=== PATIENT | female | born 1945 | race Caucasian/White ===

== ENCOUNTER 2020-10-17 12:36 | Outpatient (CLI) | payer MEDICARE, SELFPAY ==
--- NOTE | ~2020-10-17 | US_ITS ---
EXAMINATION: US soft tissue LE LT DATE: 10/17/2020 12:59 INDICATION: Painful mass at the lateral proximal left thigh. TECHNIQUE: Multiple grayscale and Doppler ultrasound images of the lateral left thigh at the region o f concern were obtained. COMPARISON: None FINDINGS: There is a 2.5 x 1.6 x 0.7 cm ovoid region with ill-defined margins at the site of the concern which is slightly hyperechoic to the surrounding subcutaneous fat but with similar echotexture. No abnormal increased internal vascular flow on color Doppler. IMPRESSION: 1. 2.5 x 1.6 x 0.7 cm masslike region with ill-defined margins at the site of concern which appears s imilar to but slightly hyperechoic to the surrounding subcutaneous fat is likely representing a regio n of inflammation of otherwise normal fat. Could not absolutely exclude solid neoplasm for which lipo ma would be most the most likely etiology. CT or MRI could be obtained for more definitive evaluation as clinically indicated. Reviewed, dictated and finalized at location B. EL BRIDGE ASSEMBLER IMPRESSION: 1. 2.5 x 1.6 x 0.7 cm masslike region with ill-defined margins at the site of c oncern which appears similar to but slightly hyperechoic to the surrounding sub cutaneous fat is likely representing a region of inflammation of otherwise norm al fat. Could not absolutely exclude solid neoplasm for which lipoma would be m ost the most likely etiology. CT or MRI could be obtained for more definitive e valuation as clinically indicated.
== END 2020-10-17 12:37 | disposition home or self-care (01) ==
LOC: ANHIMG 12:39
PROVIDERS: PCP Internal Medicine; Visit Provider Internal Medicine
DX: G89.29 Other chronic pain (principal); M25.511 Pain in right shoulder; R22.40 Localized swelling, mass and lump, unspecified lower limb
CPT/HCPCS: 76882

== ENCOUNTER 2020-10-24 12:52 | Outpatient (CLI) | payer MEDICARE, SELFPAY ==
--- NOTE | ~2020-10-24 | MR_ITS ---
EXAMINATION: MR femur LT wo con DATE: 10/24/2020 13:56 INDICATION: Left thigh lump. TECHNIQUE: Magnetic resonance imaging (MRI) of the left femur was performed without intravenous contr ast. Sequences included axial, coronal, and sagittal STIR FSE and T1-weighted FSE. COMPARISON: Ultrasound 10/17/2020 FINDINGS: Bone alignment is normal. No fracture. Bone marrow signal intensity is normal. The musculat ure is unremarkable. There is no abnormal mass. There is a skin marker at the anterolateral aspect of the left thigh. IMPRESSION: 1. No abnormal mass in the patient's area of concern. Reviewed, dictated and finalized at location A. TIVE SERVICES DESIGNER
== END 2020-10-24 12:53 | disposition home or self-care (01) ==
PROVIDERS: PCP Internal Medicine; Visit Provider Internal Medicine
DX: R22.40 Localized swelling, mass and lump, unspecified lower limb (principal)
CPT/HCPCS: 73721

== ENCOUNTER 2021-07-19 14:49 | Outpatient (CLI) | payer MEDICARE, SELFPAY ==
--- NOTE | ~2021-07-19 | US_ITS ---
EXAMINATION: US thyroid DATE: 07/19/2021 15:32 INDICATION: Goiter. Nontoxic single thyroid nodule. TECHNIQUE: Multiple ultrasound images of the thyroid were obtained. COMPARISON: 05/27/2007 FINDINGS: The right thyroid lobe measures 6.7 x 3.6 x 4.1 cm. The left thyroid lobe measures 3.5 x 1.8 x 1.4 c m. Multiple bilateral thyroid nodules. The largest and most concerning is a 2.6 cm taller than wide solid hypoechoic nodule with smooth margins and without echogenic foci (TI-RADS 5, highly suspicious , FNA if >=1.0 cm, annual followup is >0.5 cm). There are a few additional solid hypoechoic wider hermilo n tall right thyroid nodules with smooth or ill-defined margins, a couple with associated coarse shad owing calcification (TI-RADS 4, moderately suspicious , FNA if >=1.5 cm, annual followup is >=1 cm). The largest measures 2.0 cm at the medial lower pole. The next largest measuring 1.5 cm. 1.2 cm round solid left thyroid nodule with smooth margins and with central small coarse calcification also TI-RA DS 4. IMPRESSION: 1. Multinodular goiter. Recommend ultrasound-guided biopsy of the 2.6 cm TI RADS 5 right thyroid nodu le. Reviewed, dictated and finalized at location A. N'S STUDIES LECTURER IMPRESSION: 1. Multinodular goiter. Recommend ultrasound-guided biopsy of the 2.6 cm TI RAD S 5 right thyroid nodule.
== END 2021-07-19 14:50 | disposition home or self-care (01) ==
LOC: ANHIMG 14:52
PROVIDERS: PCP Internal Medicine; Visit Provider Internal Medicine
DX: E04.2 Nontoxic multinodular goiter (principal)
CPT/HCPCS: 76536

== ENCOUNTER 2021-07-30 09:47 | Outpatient (CLI) | payer MEDICARE, SELFPAY ==
--- NOTE | ~2021-07-30 | US_ITS ---
EXAMINATION: US FNA w image guidance DATE: 07/30/2021 10:41 INDICATION: Nontoxic single thyroid nodule. TECHNIQUE: The procedure and its benefits and risks were discussed with the patient. Risks specifically discusse d included bleeding. The patient verbalized understanding of the risks and agreed to proceed. The nec k was prepped and draped in the usual sterile manner. 1% lidocaine was used for local anesthesia. 5 passes were made with a 25G needle into the lesion under ultrasound guidance. There were no immedia te complications. FINDINGS: Grayscale ultrasound images demonstrate needles advanced into a 2.6 cm right thyroid nodule for biops y. IMPRESSION: 1. Ultrasound-guided fine needle aspiration of a right thyroid nodule. Reviewed, dictated and finalized at location A. UCT ENGINEERING MANAGER
== END 2021-07-30 09:48 | disposition home or self-care (01) ==
LOC: ANHIMG 09:51
PROVIDERS: PCP Internal Medicine; Visit Provider Internal Medicine
DX: E04.1 Nontoxic single thyroid nodule (principal)
CPT/HCPCS: 10005; 88173; 88305

== ENCOUNTER 2021-08-16 09:42 | Outpatient (CLI) | payer MEDICARE, SELFPAY ==
--- NOTE | ~2021-08-16 | US_ITS ---
EXAMINATION: US FNA w image guidance DATE: 08/16/2021 10:54 INDICATION: Nontoxic thyroid nodule TECHNIQUE: A time-out was performed to verify the patient's name, date of , and procedure to be performed . The procedure and its benefits and risks were discussed with the patient. Risks specifically discus sed included bleeding and infection. The patient understood the risks and agreed to proceed. The neck was prepped and draped in the usual sterile manner. 3 mL 1% lidocaine was used for local anesthesia . 6 passes were made with a 25G needle into the lesion. Appropriate needle location was documented with continuous sonographic guidance. The specimens were passed to the pharmacy technologist in the room. A sterile bandage was applied. There were no immediate complications. FINDINGS: Grayscale ultrasound images demonstrate biopsy needles advanced into a 2.3 cm taller than wide solid TI RADS 5 nodule in the right thyroid. IMPRESSION: 1. Successful ultrasound-guided fine needle aspiration of the 2.3 cm TI RADS 5 right thyroid nodule of concern. Reviewed, dictated and finalized at location A. PERSON
== END 2021-08-16 09:43 | disposition home or self-care (01) ==
LOC: ANHIMG 09:44
PROVIDERS: PCP Internal Medicine; Visit Provider Internal Medicine
DX: E04.1 Nontoxic single thyroid nodule (principal)
CPT/HCPCS: 10005; 88173; 88305

== ENCOUNTER 2021-09-04 17:45 | Emergency (ER) | payer MEDICARE, SELFPAY ==
[2021-09-04 17:54] VITALS: BP 142/75; PULSE 77; RESP 16; TEMP 35.9; O2SAT 98
--- NOTE | 2021-09-04 17:59 | ED.EAR ---
HPI - Ear Problem General Chief complaint: Ear Stated complaint: Ear congestion Time Seen by Provider: 09/04/21 17:59 Source: patient Mode of arrival: ambulatory Limitations: no limitations History of Present Illness HPI Narrative: 76-year-old female presenting for complaint of bilateral ear pressure for about 3 weeks. She endorses worse than right. She denies significant hearing loss, sinus pressure congestion, sore throat, fever or chills. Denies recent URI. States Cpap worsens the pain. Denies similar symptoms in the past. MD Complaint: ear pain Related Data Home Medications Medication Instructions Recorded Confirmed metoprolol succinate 25 mg 25 mg PO Q12H 10/01/19 02/21/21 tablet,extended release 24 hr acetaminophen 650 mg 650 mg PO Q12H 02/21/21 02/21/21 tablet,extended release ibuprofen 200 mg tablet 200 mg PO Q6H PRN 02/21/21 02/21/21 Allergies Allergy/AdvReac Type Severity Reaction Status Date / Time No Known Allergies Allergy Unknown Verified 09/04/21 17:52 Review of Systems Review of Systems: CONSTITUTIONAL: Denies malaise, chills, sweats, or fever. EYES: Denies visual changes, redness, or discharge. ENT: Denies rhinorrhea, congestion, sinus pain, and sore throat. Reports ear pain CARDIOVASCULAR: Denies chest pain, palpitations, or edema. RESPIRATORY: Denies cough. Denies dyspnea. GASTROINTESTINAL: Denies abdominal pain, nausea, vomiting, diarrhea SKIN: Denies rash or itching. MUSCULOSKELETAL: Denies myalgia. NEUROLOGIC: Denies headache. All systems reviewed & are unremarkable except as noted in HPI and below PMFSH Family History Family History Mother Family history of tuberculosis Sibling Patient's brother is in good health Father Family history of congestive heart failure, Onset Age: 91 Patient's father is Other Cerebrovascular accident Diabetes mellitus Family history of malignant neoplasm of male breast Social History Social History Smoking status: Never smoker Alcohol intake: current Comments At time of signature, agree with nursing past medical, surgical, social and family history. There is no relevant family history pertinent to the presenting complaint Exam Narrative: GENERAL: Well-appearing, well-nourished, and in no acute distress. HEAD: Normocephalic EYES: PERRLA, conjunctivae clear ENT: Nares clear. Mucous membranes moist. TM pearly valenzuela with dull light reflex to right ear; Left ear with cerumen impaction, no tragal tenderness. Oropharynx not erythematous without lesions. NECK: Supple. No lymphadenopathy CHEST: Clear to auscultation, breath sounds equal. No wheezing, rhonchi, rales, or stridor. No respiratory distress, speaks in full sentences. HEART: Regular rate and rhythm. No murmur heard. SKIN: Warm, dry, no rash. NEURO: Alert and oriented x3. PSYCH: Normal mood and affect Course Course Emergency Course: Cerumen impaction left ear, some cerumen remains in place after irrigation. Due to risk for TM perforation, Pt will try OTC med at home and f/u with ENT. Patient is aware of diagnosis, understands and agrees to treatment plan. Anticipatory guidance given. Patient agrees to follow-up as directed and is aware of reasons to seek care at the emergency department. Portions of this record may have been created with voice recognition software Level of Care: Express Care Visit Vital Signs Vital signs: Vital Signs Temperature 96.6 F L 09/04/21 17:54 Pulse Rate 77 09/04/21 17:54 Respiratory Rate 16 09/04/21 17:54 Blood Pressure 142/75 H 09/04/21 17:54 Pulse Oximetry 98 09/04/21 17:54 Temperature 96.6 F L 09/04/21 17:54 Pulse Rate 77 09/04/21 17:54 Respiratory Rate 16 09/04/21 17:54 Blood Pressure 142/75 H 09/04/21 17:54 Pulse Oximetry 98 09/04/21 17:54 Reviewed Procedures Ear Wax Remova
== END 2021-09-04 18:34 | disposition home or self-care (01) ==
PROVIDERS: Emergency Provider Nurse Practitioner Family; PCP Internal Medicine
DX: H61.22 Impacted cerumen, left ear (principal); E03.9 Hypothyroidism, unspecified
CPT/HCPCS: 69210; 99213; G0463

== ENCOUNTER 2022-01-15 10:11 | Outpatient (CLI) | payer MEDICARE, SELFPAY ==
--- NOTE | ~2022-01-15 | MM_ITS ---
EXAMINATION: MM screening carlos alberto BI w hoa HISTORY: Screening mammogram TECHNIQUE: Craniocaudal and mediolateral oblique 3-D tomosynthesis images were obtained and synthetic 2-D images were generated. CAD analysis was submitted and interpreted. COMPARISON: 05/13/2019, 03/30/2015, 09/12/2013 bilateral screening mammogram examinations BREAST PARENCHYMAL COMPOSITION: There are scattered areas of fibroglandular density. FINDINGS: Stable low-density circumscribed 7 mm mass at mid depth in the lower inner right breast. Occasional benign calcifications. There is no evidence of suspicious mass, calcification, or architec tural distortion to suggest malignancy in either breast. There has been no suspicious interval change . IMPRESSION: 1. No mammographic evidence of malignancy. 2. Recommend routine screening mammography in one year. BI-RADS Category 2: Benign finding(s). Reviewed, dictated and finalized at location A.
== END 2022-01-15 10:12 | disposition home or self-care (01) ==
LOC: ANHIMG 10:13
PROVIDERS: PCP Internal Medicine; Visit Provider Nurse Practitioner
DX: Z12.31 Encounter for screening mammogram for malignant neoplasm of breast (principal)
CPT/HCPCS: 77063; 77067

== ENCOUNTER 2022-03-20 13:02 | Outpatient (CLI) | payer MEDICARE, SELFPAY ==
--- NOTE | ~2022-03-20 | DEXA_ITS ---
Bone Density Report Name: ED BELTRÁN Age: 76 Sex: Female Ethnicity: White Date of : 1945 Indication: postmenopausal; screening for osteoporosis; height loss; Referring Provider: JESSICA STACY Study: Bone densitometry was performed. Exam Date: March 20, 2022 Accession number: [id number] Bone Density: Region BMD T-score Z-score Classification AP Spine(L1-L4) 1.186 1.3 3.9 Normal Femoral Neck (Left) 0.661 -1.7 0.6 Osteopenia Total Hip (Left) 0.846 -0.8 1.2 Normal Femoral Neck (Right) 0.734 -1.0 1.2 Normal Total Hip (Right) 0.891 -0.4 1.6 Normal Total Hip Mean 0.869 -0.6 1.4 Normal World Health Organization criteria for BMD impression classify patients as: Normal (T-score at or above -1.0), Osteopenia (T-score between -1.0 and -2.5), or Osteoporosis (T-score at or below -2.5). 10-year Fracture Risk(1): Major Osteoporotic Fracture 13% Hip Fracture 3.0% Reported Risk Factors: [place] (), Neck BMD=0.661, BMI=33.8 (1) FRAX(R) Version 3.08. Fracture probability calculated for an untreated patient. Fracture probability may be lower if the patient has received treatment. Clinical Information Provided by Patient: Has used the following medications: Vitamin D, Calcium Has the following medical conditions: gioter Patient maximum height was 65.5 Menopause Age: 48 Drinks caffeinated beverages Onset of menses at age 10 Number of children 0 Impression: The patient has low bone mass, based on the Left Femoral Neck T-score. The patient has an estimated ten-year risk of hip fracture of 3% and an estimated ten-year risk of major fracture of 13%, based on the WHO FRAX algorithm. Discussion: BONE DENSITY IS LOW AT ONE OR MORE SKELETAL SITES. THE PATIENT'S BMD AND CLINICAL RISK FACTORS CONTRIBUTE TO THIS PATIENT'S INCREASED RISK OF FRACTURE. This patient's lowest T-score is low at one or more skeletal sites. It meets the World Health Organization's (WHO) criteria for ?low bone mass? (T-score between -1.0 and -2.5). The patient's 10-year risk of hip fracture as calculated by FRAX exceeds the threshold where pharmacological therapy is recommended by the National Osteoporosis Foundation (NOF). However, all treatment decisions require clinical judgment and consideration of individual patient factors, including patient preferences, comorbidities, previous drug use, risk factors not captured in the FRAX model (e.g., frailty, falls, vitamin D deficiency, increased bone turnover, interval significant decline in bone density) and possible under or overestimation of fracture risk by FRAX. The patient should follow a healthful lifestyle (good nutrition with adequate calcium and vitamin D, and appropriate weight-bearing exercise). Follow-Up: Consider a repeat BMD and Vertebral
== END 2022-03-20 13:03 | disposition home or self-care (01) ==
PROVIDERS: PCP Internal Medicine; Visit Provider Nurse Practitioner
DX: Z78.0 Asymptomatic menopausal state (principal); M85.852 Other specified disorders of bone density and structure, left thigh
CPT/HCPCS: 77080

== ENCOUNTER 2022-06-02 10:57 | Emergency (ER) | payer MEDICARE, SELFPAY ==
--- NOTE | 2022-06-02 11:02 | ED.FEMALEGU ---
HPI - Female Genitourinary General Chief complaint: Urogenital-Female Stated complaint: uti Time Seen by Provider: 06/02/22 11:02 Source: patient and RN notes reviewed History of Present Illness HPI Narrative: Patient is a 77-year-old female who presents the urgent care with complaints of a possible urination due to pain with urination this morning. Patient states she also had a low-grade fever at home and has been more fatigued. Denies any nausea or vomiting. States that she has had painful bowel movements for the last several weeks and has not spoke to her doctor. Patient believes that she has external hemorrhoids and has been treating them with [id number] medication. Patient denies any blood in the stool or urine. Denies any abdominal pains. No other acute complaints. No acute distress noted. Patient read the plan of care. Some parts of this dictation were generated by voice recognition software and may contain typographical and/or grammatical inaccuracies. Related Data Home Medications Medication Instructions Recorded Confirmed metoprolol succinate 25 mg 25 mg PO Q12H 10/01/19 04/23/22 tablet,extended release 24 hr acetaminophen 650 mg 650 mg PO Q12H 02/21/21 04/23/22 tablet,extended release ibuprofen 200 mg tablet (Advil) 200 mg PO Q6H PRN Pain 02/21/21 04/23/22 diphenhydramine HCl 25 mg capsule 25 mg PO QHS PRN 05/21/22 (Benadryl) Allergies Allergy/AdvReac Type Severity Reaction Status Date / Time No Known Allergies Allergy Unknown Verified 05/21/22 11:31 Review of Systems Review of Systems: CONSTITUTIONAL: Denies fever, chills, or sweats. EYES: Denies visual changes, redness, or discharge. ENT: Denies rhinorrhea, congestion, sore throat, or otalgia. CARDIOVASCULAR: Denies chest pain, palpitations, or edema. RESPIRATORY: Denies cough or dyspnea. GASTROINTESTINAL: Denies abdominal pain, nausea, vomiting. Reports of loose stools GENITOURINARY: Reports of dysuria and frequency SKIN: Denies rash or itching. MUSCULOSKELETAL: Denies back pain, joint pain, or myalgia. NEUROLOGIC: Denies headache, numbness, or weakness. \ All other systems reviewed are negative, except as documented in HPI. [facility] Family History Family History Mother Family history of tuberculosis Sibling Patient's brother is in good health Father Family history of congestive heart failure, Onset Age: 91 Patient's father is Other Cerebrovascular accident Diabetes mellitus Family history of malignant neoplasm of male breast Social History Social History Smoking status: Never smoker Alcohol intake: current Alcohol use details: social Substance use: never Substance use type: does not use Comments At the time of my signature, I reviewed and agree with the nursing past medical, surgical, social, and family history. There is no relevant family history pertinent to the patient complaint. Exam Narrative: GENERAL: This is a well-nourished, well-developed patient, in no apparent distress. HEAD: normocephalic, atraumatic. EYES: PERRL. Sclera clear/white. Vision is grossly intact. EARS: External ears normal NOSE: External nose normal with no obvious nasal discharge, nares without redness, no rhinorrhea. THROAT: Mucous membranes moist NECK: Neck supple CARDIOVASCULAR: Regular rate and rhythm RESPIRATORY: Clear to auscultation. Breath sounds equal bilaterally. No wheezes, rales, or rhonchi. GASTROINTESTINAL: Abdomen soft, mild suprapubic tenderness, nondistended. Bowel sounds are active. No guarding. Very small old appearing nonthrombosed external hemorrhoid SKIN: warm, intact with no suspicious lesions or rash, good texture and turgor. NEURO: awake, alert, and oriented to person, place and time. There were no obvious focal neurologic abnormalities. EXTREMITIES: No clubbing, cyanosis, or
[2022-06-02 11:06] VITALS: BP 130/94; PULSE 85; RESP 16; TEMP 36.3; O2SAT 98
== END 2022-06-02 11:29 | disposition home or self-care (01) ==
PROVIDERS: Emergency Provider Nurse Practitioner Family; PCP Internal Medicine
DX: N39.0 Urinary tract infection, site not specified (principal); E03.9 Hypothyroidism, unspecified
CPT/HCPCS: 81003; 87086; 87088; 99213; G0463

== ENCOUNTER 2022-09-06 00:41 | Day surgery (SDC) | payer MEDICARE, SELFPAY ==
[2022-08-23 13:04] VITALS: BMI 32.4
[2022-09-06 10:05] VITALS: BP 133/79; PULSE 90; RESP 20; TEMP 36.4; O2SAT 97
[2022-09-06] MEDS: LACTATED RINGERS 1,000 ML 150 ML IV CONT (10:17)
--- NOTE | 2022-09-06 10:25 | PM.HPGS ---
History of Present Illness History of Present Illness Consent: Risks, benefits, and alternatives have been discussed and questions answered. Patient agrees to proceed with procedure. Chief complaint: Hx of Colon Polyps Narrative: Angela Munoz is a 77 year old female referred for colon cancer screening. She has a history of polyps. Review of Systems Review of Systems: All systems reviewed & are unremarkable except as noted in HPI and below PMFSH Family History Family History Mother Family history of tuberculosis Sibling Patient's brother is in good health Father Family history of congestive heart failure, Onset Age: 91 Patient's father is Other Cerebrovascular accident Diabetes mellitus Family history of malignant neoplasm of male breast Social History Social History Smoking status: Never smoker Alcohol intake: current Alcohol use details: rarely wine Substance use: never Substance use type: does not use Lack of Transportation: No Lack of Food: Never True Current Housing: I Have Housing Concerned About Future Housing: No Difficulty Paying Gas/Electric Bills: No Difficulty Paying for Meds: No Education: Master's Degree or Higher Living arrangements: with family Spiritual care concerns: No Meds Home Medications and Allergies Home Medications Medication Instructions Recorded Confirmed Type metoprolol succinate 25 mg 25 mg PO DAILY 10/01/19 09/06/22 History tablet,extended release 24 hr acetaminophen 650 mg 650 mg PO Q12H PRN Pain 02/21/21 08/23/22 History tablet,extended release ibuprofen 200 mg tablet (Advil) 200 mg PO Q6H PRN Pain 02/21/21 08/23/22 History diphenhydramine HCl 25 mg capsule 25 mg PO QHS PRN Sleep 05/21/22 08/23/22 History (Benadryl) levothyroxine 100 mcg tablet 100 mcg PO DAILY 08/23/22 09/06/22 History phenylephrine 0.25 %-mineral oil 1 applic RECTAL QAM AND QHS PRN 08/23/22 08/23/22 History 14 %-petrolatm 74.9 % rectal Hemorrhoids ointment (Preparation H) psyllium husk 3.4 gram/5.4 gram 1 tbsp PO DAILY 08/23/22 08/23/22 History oral powder (Metamucil) temazepam 15 mg capsule 15 mg PO HS PRN sleep 08/23/22 08/23/22 History Allergies Allergy/AdvReac Type Severity Reaction Status Date / Time No Known Allergies Allergy Unknown Verified 09/06/22 10:04 Vital Signs Vital Signs - 24 hr 09/06/22 10:05 Temperature 36.4 C L Pulse Rate 90 Respiratory Rate 20 Blood Pressure 133/79 Pulse Oximetry 97 Oxygen Delivery Room Air Exam Resp: Auscultation: clear to auscultation bilaterally Cardio: Rate: regular rate Rhythm: regular rhythm GI: GI Palp: Yes Soft to palpation and No Tenderness to palpation present (GI) Assessment and Plan Assessment and plan (1) Colon cancer screening: Code(s): Z12.11 - Encounter for screening for malignant neoplasm of colon Status: Acute Assessment and Plan: Colonoscopy with possible biopsy or polypectomy or cautery or injection of substances.
--- NOTE | 2022-09-06 10:28 | WPDANESEPPF ---
Anes - Initial Pre Proc Eval Procedure: Operation Date: 09/06/22 11:30 Proposed Procedures p Screening Colonoscopy - Jasson Villeda MD Date/Time: 09/06/22 10:28 Surgeon: Jasson Villeda MD Pre Op Diagnosis: Hx of Colon Polyps Patient Data Age: 77 Gender: F Height: 1.65 m Weight: 86.5 kg Last Vital Signs Temp 97.5 F L 09/06/22 10:05 Pulse 90 09/06/22 10:05 Resp 20 09/06/22 10:05 BP 133/79 09/06/22 10:05 Pulse Ox 97 09/06/22 10:05 O2 Del Method Room Air 09/06/22 10:05 Allergies Allergy/AdvReac Type Severity Reaction Status Date / Time No Known Allergies Allergy Unknown Verified 09/06/22 10:04 Home Medications Medication Instructions Recorded Confirmed Type metoprolol succinate 25 mg 25 mg PO DAILY 10/01/19 09/06/22 History tablet,extended release 24 hr acetaminophen 650 mg 650 mg PO Q12H PRN Pain 02/21/21 08/23/22 History tablet,extended release ibuprofen 200 mg tablet (Advil) 200 mg PO Q6H PRN Pain 02/21/21 08/23/22 History diphenhydramine HCl 25 mg capsule 25 mg PO QHS PRN Sleep 05/21/22 08/23/22 History (Benadryl) levothyroxine 100 mcg tablet 100 mcg PO DAILY 08/23/22 09/06/22 History phenylephrine 0.25 %-mineral oil 1 applic RECTAL QAM AND QHS PRN 08/23/22 08/23/22 History 14 %-petrolatm 74.9 % rectal Hemorrhoids ointment (Preparation H) psyllium husk 3.4 gram/5.4 gram 1 tbsp PO DAILY 08/23/22 08/23/22 History oral powder (Metamucil) temazepam 15 mg capsule 15 mg PO HS PRN sleep 08/23/22 08/23/22 History Patient hx anesthesia problems: none Family hx anesthesia problems: none Results Review: All pre-operative results and documents have been reviewed as part of the pre-operative evaluation. PMFSH Family History Family History Mother Family history of tuberculosis Sibling Patient's brother is in good health Father Family history of congestive heart failure, Onset Age: 91 Patient's father is Other Cerebrovascular accident Diabetes mellitus Family history of malignant neoplasm of male breast Social History Social History Smoking status: Never smoker Alcohol intake: current Alcohol use details: rarely wine Substance use: never Substance use type: does not use Lack of Transportation: No Lack of Food: Never True Current Housing: I Have Housing Concerned About Future Housing: No Difficulty Paying Gas/Electric Bills: No Difficulty Paying for Meds: No Education: Master's Degree or Higher Living arrangements: with family Spiritual care concerns: No Anes - Eval Final PreProcedure Day of Procedure 09/06/22 10:28 Patient weight: obese Heart: regular rate and rhythm Lungs: clear to auscultation Airway: Mallampati scale class II Neurological: alert and oriented Last oral intake: >/= 8 hours ASA classification: III Emergent: no Anesthetic plan: proceed Anesthesia type and monitoring: general GIVS and standard monitoring Results Review: All pre-operative results and documents have been reviewed as part of the pre-operative evaluation. Informed Consent: The patient's anesthetic plan and its attendant risks and benefits were discussed with the patient/family/POA. Questions were solicited and answers provided to the satisfaction of the patient/family/POA.
[2022-09-06 10:55] VITALS: BP 103/57; PULSE 69; RESP 14; O2SAT 100
[2022-09-06 11:04] VITALS: BP 105/56; PULSE 67; RESP 16; O2SAT 100
[2022-09-06 11:14] VITALS: BP 110/69; PULSE 66; RESP 17; O2SAT 100
== END 2022-09-06 11:30 | disposition home or self-care (01) ==
PROVIDERS: PCP Internal Medicine; Visit Provider Internal Medicine Gastroenterology
PROC: 0DJD8ZZ Inspection of Lower Intestinal Tract, Via Natural or Artificial Opening Endoscopic (ICD-10-PCS; CPT 45378; principal; 2022-09-06 11:30)
DX: Z12.11 Encounter for screening for malignant neoplasm of colon (principal); D12.5 Benign neoplasm of sigmoid colon; K57.30 Diverticulosis of large intestine without perforation or abscess without bleeding; E66.9 Obesity, unspecified; Z68.31 Body mass index [BMI] 31.0-31.9, adult
CPT/HCPCS: 45385; 88305; J2704; J7120

== ENCOUNTER 2023-02-12 12:03 | Inpatient (IN) | payer MEDICARE, SELFPAY ==
[2023-02-12] VITALS (15 sets, daily range): BP systolic 110–133; BP diastolic 57–86; PULSE 80–94; RESP 11–16; TEMP 36.2–37.4; O2SAT 95–99; BMI 31.7
--- NOTE | ~2023-02-12 | XR_ITS ---
Clinical Indication: Chest pain PA and lateral views of the chest: Comparison: 11/07/2018 Findings: Focal hazy opacity present at the right midlung. Left lung clear. Cardiomediastinal silhou ette is within normal limits. Bones and soft tissues are unremarkable. Impression: Focal right midlung airspace opacity. Focal pneumonia is a consideration. Pulmonary nodule not exclud ed. Consider CT versus follow-up exam to further evaluate. Reviewed, dictated and finalized at location . Impression: Focal right midlung airspace opacity. Focal pneumonia is a consideration. Pulmo nary nodule not excluded. Consider CT versus follow-up exam to further evaluate .
--- NOTE | ~2023-02-12 | CT_ITS ---
EXAMINATION: CTA chest PE protocol DATE: 02/12/2023 13:13 INDICATION: Chest pain and shortness of breath TECHNIQUE: Computed tomography angiography (CTA) of the chest was performed with 100 mL Omnipaque-350 intravenous contrast timed to evaluate the pulmonary arteries. Coronal maximum intensity projection 3D-reconstructions were created by the technologist. The dose-length product (DLP) was 586.57 mGy-cm. Automated exposure control and iterative reconstruction technique were employed. COMPARISON: None. FINDINGS: The pulmonary arteries are well-opacified. Although limited by respiratory motion artifact, no pulmonary embolism is identified. There is a focal airspace opacity of the right upper lobe measu ring approximately 2.5 x 2.6 cm. No pleural effusion or pneumothorax. Cardiomegaly is noted. There is mild right hilar lymphadenopathy. There is multinodular goiter of the right thyroid lobe having prev iously undergone biopsy. There is severe lower cervical spondylosis and moderate to severe thoracic s pondylosis. IMPRESSION: 1. No pulmonary embolus identified, sensitivity limited by motion artifact. 2. Right upper lobe airspace opacity, likely infection/inflammation. Follow-up CT in three months is recommended. Reviewed, dictated and finalized at location []
--- NOTE | 2023-02-12 12:21 | ED.CHESTPAIN ---
HPI - Chest Pain General Chief Complaint: Chest Pain Stated Complaint: chest pain Time Seen by Provider: 02/12/23 12:06 Source: patient, RN notes reviewed and old records reviewed Mode of arrival: ambulatory Limitations: no limitations History of Present Illness HPI narrative: This is a 77 year old female with history of PVC, thyroid disease who presents for evaluation of chest pain. She states she developed dull aching chest pain yesterday after noon. This ache has been intermittent and it may last for 30 minutes. She occasionally has pain radiating to her shoulders. She reports having dull ache rate 2/10. She also reports nausea and fatigue with mild shortness of breath. SHe was able to complete a hike yesterday but her symptoms started having her hike was finished. She denies history of heart attack or stent. Her professor of biology is Dr. Lopez. Related Data Home Medications Medication Instructions Recorded Confirmed metoprolol succinate 25 mg 25 mg PO DAILY 10/01/19 02/12/23 tablet,extended release 24 hr ibuprofen 200 mg tablet (Advil) 200 mg PO Q6H PRN Pain 02/21/21 02/12/23 diphenhydramine HCl 25 mg capsule 25 mg PO QHS PRN Sleep 05/21/22 02/12/23 (Benadryl) phenylephrine 0.25 %-mineral oil 1 applic RECTAL QAM AND QHS PRN 08/23/22 02/12/23 14 %-petrolatm 74.9 % rectal Hemorrhoids ointment (Preparation H) psyllium husk 3.4 gram/5.4 gram 1 tbsp PO DAILY 08/23/22 02/12/23 oral powder (Metamucil) Allergies Allergy/AdvReac Type Severity Reaction Status Date / Time No Known Allergies Allergy Unknown Verified 01/27/23 13:24 Review of Systems Constitutional: Constitutional: Reports fatigue and Denies weakness Cardiovascular: Cardiovascular: Reports chest pain, Denies syncope, Denies rapid heart rate, Denies irregular heart rhythm, Denies leg edema, Reports radiating jaw, neck or arm pain and Reports dyspnea Respiratory: Respiratory: Denies chest congestion, Reports cough, Denies hemoptysis, Denies excessive phlegm production and Denies dyspnea Gastrointestinal: Gastrointestinal: Denies abdominal pain, Denies hematochezia, Denies diarrhea, Reports nausea and Denies vomiting Genitourinary: Genitourinary: Denies hematuria and Denies dysuria Musculoskeletal: Musculoskeletal: Denies joint swelling, Denies loss of height and Denies muscle weakness Neurologic: Denies syncope, Denies focal weakness and Denies weakness PMFSH Past Medical History Medical History Adult hypothyroidism Asthma childhood Family History Family History Mother Family history of tuberculosis Sibling Patient's brother is in good health Father Family history of congestive heart failure, Onset Age: 91 Patient's father is Other Cerebrovascular accident Diabetes mellitus Family history of malignant neoplasm of male breast Social History Social History Smoking status: Never smoker Alcohol intake: current Alcohol use details: rarely wine Substance use: former Substance use type: marijuana Other substance usage details: in the 1960s Lack of Transportation: No Lack of Food: Never True Current Housing: I Have Housing Concerned About Future Housing: No Difficulty Paying Gas/Electric Bills: No Difficulty Paying for Meds: No Currently Unemployed: No Education: Master's Degree or Higher Difficulty w/ Childcare or Family Care: No Living arrangements: with family Spiritual care concerns: No Exam Const: General: no acute distress and alert Nutritional Appearance: well nourished Orientation/consciousness: patient oriented x3 Limitations: no limitations HENMT: Head: normal to inspection Throat: posterior oropharynx normal and uvula midline Eyes: EOM: EOMs intact bilaterally Neck: Neck: normal visual i
[2023-02-12 12:22] LABS: Basophils Absolute Auto 0.1 K/mm3 (0.0-0.1); Basophils Percent Auto 0.5 % (0.2-1.2); Eosinophils Absolute Auto 0.1 K/mm3 (0-0.3); Eosinophils Percent Auto 0.4 % (0-4.4); Hematocrit 44.5 % (37.0-47.0); Hemoglobin 14.6 g/dL (12.0-15.0); Immature Granulocyte Absolute 0.05 K/mm3 (0.00-0.031); Immature Granulocyte Percent A 0.4 % (0-0.5); Lymphocytes Absolute Auto 1.64 K/mm3 (0.9-3.2); Lymphocytes Percent Auto 14.2 % (18.3-44.2); Mean Corpuscular HGB Conc 32.8 g/dl (32-36); Mean Corpuscular Hemoglobin 30.9 pg (26-34); Mean Corpuscular Volume 94.3 fl (80-100); Mean Platelet Volume 10.6 fl (7.4-10.4); Monocytes Absolute Auto 1.1 K/mm3 (0.1-0.6); Monocytes Percent Auto 9.1 % (2.6-8.5); Neutrophils Absolute Auto 8.7 K/mm3 (1.3-6.7); Neutrophils Percent Auto 75.4 % (45.5-73.1); Platelet Count Result 174 k/mm3 (150-375); Red Blood Count 4.72 M/mm3 (4.2-5.4); Red Cell Distribution Width 12.7 % (11.5-14.5); White Blood Count 11.6 K/mm3 (4.5-10.0)
[2023-02-12 12:32] LABS: Alanine Aminotransferase 24 U/L (6-35); Albumin Level 3.8 g/dL (3.5-5.1); Alkaline Phosphatase 68 U/L (38-126); Anion Gap 3 mmol/L (8-16); Aspartate Amino Transferase 30 U/L (14-36); Bilirubin,Total 1.2 mg/dL (0.2-1.3); Blood Urea Nitrogen 14 mg/dL (7-17); Calcium 8.8 mg/dL (8.4-10.2); Carbon Dioxide 27 mmol/L (22-30); Chloride 105 mmol/L (98-107); Estimated CRCL calculation 48 ml/min; Estimated Glomerular Filt Rate 60; Glucose 104 mg/dL (65-110); Lipase 120 U/L (23-300); Potassium 3.8 mmol/L (3.4-5.0); Sodium 135 mmol/L (137-145)
[2023-02-12 12:33] LABS: Prothrombin Time 13.8 Seconds (11.1-14.7)
[2023-02-12 12:34] LABS: Partial Thromboplastin Time 29.7 SECONDS (22.3-36.8)
[2023-02-12 12:39] LABS: D Dimer 0.64 ug/mL (<0.48)
[2023-02-12 12:41] LABS: Appearance Urine Clear (Clear); Bacteria Urine None Seen /hpf; Bilirubin Urine Negative (Negative); Blood Urine Negative (Negative); Color Urine Yellow (Yellow); Glucose Urine UA Negative (Negative); Ketones Urine 1+ mg/dL (Negative); Leukocyte Esterase Ur 1+ LEU/UL (Negative); Need Manual Microscopic Reviewed; Nitrate Urine Negative (Negative); Non Pathogenic Casts 0-2; Protein Urine Trace mg/dL (Negative); Specific Grav Ur 1.019 (1.001-1.035); Squamous Epithelial Cell Urine None seen /hpf (Few); WBC Urine 0-5 /hpf; pH Urine 6.5 (5.0-9.0)
[2023-02-12 12:42] LABS: Add Urine Microscopic? YES
[2023-02-12] MEDS: ONDANSETRON INJ 4 MG/2 ML VIAL IV PUSH (12:42)
[2023-02-12] MEDS: ASPIRIN 81 MG CHEWABLE TABLET 324 MG PO (12:42)
[2023-02-12 12:43] LABS: Troponin I < 0.012 ng/mL (0.000-0.034)
[2023-02-12 13:07] LABS: Influenza A QL RT-PCR Negative (Negative); Influenza B QL RT-PCR Negative (Negative); SARS-CoV-2 RNA PCR Negative (Negative)
[2023-02-12 15:50] LABS: Troponin I < 0.012 ng/mL (0.000-0.034)
--- NOTE | 2023-02-12 17:09 | PC.NURSE ---
This patient, Angela Munoz, was admitted to IMU Room 203-01 from ED via w/c at 1610. Patient/family oriented to hospital policies and general routines including ID bracelet, bed and alarms, visiting hours, pain management, procedures, bathroom and other care routines, personal items, smoking policy, room service/diet, and visiting hours. Information on how to activate the Rapid Response Team has been discussed. Patient/Family are encouraged to report perceived risks to care and to ask questions if they do not understand what they are told or what they should do.
[2023-02-12 19:10] LABS: Troponin I < 0.012 ng/mL (0.000-0.034)
--- NOTE | 2023-02-12 20:08 | PM.IMHP ---
H&P: HPI History of Present Illness Date/Time: 02/12/23 20:08 Chief Complaint: chest pain Narrative: 77-year-old female with past medical history significant for obstructive sleep apnea on CPAP at nighttime. Patient presents to the emergency room due to chest pain localized to the retrosternal area Clinical Indication: Chest pain ?PA and lateral views of the chest: Comparison: 11/07/2018 Findings: Focal hazy opacity present at the right midlung. Left lung clear.? Cardiomediastinal silhouette is within normal limits. Bones and soft tissues are unremarkable. ? Impression: ? Focal right midlung airspace opacity. Focal pneumonia is a consideration. Pulmonary nodule not excluded. Consider CT versus follow-up exam to further evaluate. EXAMINATION: CTA chest PE protocol DATE: 02/12/2023 13:13 INDICATION: Chest pain and shortness of breath TECHNIQUE: Computed tomography angiography (CTA) of the chest was performed with 100 mL Omnipaque-350 intravenous contrast timed to evaluate the pulmonary arteries. Coronal maximum intensity projection 3D-reconstructions were created by the technologist. The dose-length product (DLP) was 586.57 mGy-cm. Automated exposure control and iterative reconstruction technique were employed. COMPARISON: None. FINDINGS: The pulmonary arteries are well-opacified. Although limited by respiratory motion artifact, no pulmonary embolism is identified. There is a focal airspace opacity of the right upper lobe measuring approximately 2.5 x 2.6 cm. No pleural effusion or pneumothorax. Cardiomegaly is noted. There is mild right hilar lymphadenopathy. There is multinodular goiter of the right thyroid lobe having previously undergone biopsy. There is severe lower cervical spondylosis and moderate to severe thoracic spondylosis. IMPRESSION: 1. No pulmonary embolus identified, sensitivity limited by motion artifact. 2. Right upper lobe airspace opacity, likely infection/inflammation. Follow-up CT in three months is recommended. [facility] Past Medical History Medical History Adult hypothyroidism Asthma childhood Family History Family History Mother Family history of tuberculosis Sibling Patient's brother is in good health Father Family history of congestive heart failure, Onset Age: 91 Patient's father is Other Cerebrovascular accident Diabetes mellitus Family history of malignant neoplasm of male breast Social History Social History Smoking status: Never smoker Alcohol intake: current Alcohol use details: rarely wine Substance use: former Substance use type: marijuana Other substance usage details: in the 1960s Lack of Transportation: No Lack of Food: Never True Current Housing: I Have Housing Concerned About Future Housing: No Difficulty Paying Gas/Electric Bills: No Difficulty Paying for Meds: No Currently Unemployed: No Education: Master's Degree or Higher Difficulty w/ Childcare or Family Care: No Living arrangements: with family Spiritual care concerns: No Meds Home Medications and Allergies Home Medications Medication Instructions Recorded Confirmed Type metoprolol succinate 25 mg 25 mg PO DAILY 10/01/19 02/12/23 History tablet,extended release 24 hr ibuprofen 200 mg tablet (Advil) 200 mg PO Q6H PRN Pain 02/21/21 02/12/23 History diphenhydramine HCl 25 mg capsule 25 mg PO QHS PRN Sleep 05/21/22 02/12/23 History (Benadryl) phenylephrine 0.25 %-mineral oil 1 applic RECTAL QAM AND QHS PRN 08/23/22 02/12/23 History 14 %-petrolatm 74.9 % rectal Hemorrhoids ointment (Preparation H) psyllium husk 3.4 gram/5.4 gram 1 tbsp PO DAILY 08/23/22 02/12/23 History oral powder (Metamucil) temazepam 15 mg capsule 15 mg PO HS PRN sleep #30 caps 02/04/
[2023-02-13] VITALS (14 sets, daily range): BP systolic 103–131; BP diastolic 47–67; PULSE 73–94; RESP 16–97; TEMP 35.9–37.2; O2SAT 93–97
--- NOTE | 2023-02-13 | ECHO_ITS ---
Patient Info Name: Angela Munoz Age: 77 years : 1945 Gender: Female Ht: 65 in Wt: 195 lbs BSA: 2.05 m2 HR: 84 bpm BP: 112 / 61 mmHg Heart Rhythm: Sinus Rhythm Technical Quality: Fair Exam Date: 02/13/2023 8:58 AM Exam Location: [facility] Pulmonary Patient Status: Inpatient Admit Date: 02/13/2023 Staff Ordering Physician: Merritt Long MD Sterilizer Operator: Robbie Carroll RDCS Attending Provider: Madina Hoffman MD Referring Physician: Mercedes MCQUEEN; Exam Type: CA echo doppler color flow Study Info Indications - chest pain Complete two-dimensional, color flow and Doppler transthoracic echocardiogram is performed. Summary 1. Complete two-dimensional, color flow and Doppler transthoracic echocardiogram is performed. 2. Left ventricular chamber dimension is normal. 3. Left ventricular systolic function is hyperdynamic, estimated at >70%. 4. There is mildly increased left ventricular wall thickness. 5. The left ventricular diastolic function is grade I diastolic dysfunction. 6. Right ventricular systolic function is normal. 7. There is mild mitral valve regurgitation. 8. There is mild tricuspid valve regurgitation. 9. There is small anterior pericardial effusion. Left Ventricle Left ventricular chamber dimension is normal. Left ventricular systolic function is hyperdynamic, estimated at >70%. There is mildly increased left ventricular wall thickness. The left ventricular diastolic function is grade I diastolic dysfunction. Right Ventricle Right ventricular chamber dimension is normal. Right ventricular systolic function is normal. Left Atria Left atrial chamber dimension is normal. Right Atria Right atrial chamber dimension is normal. Atrial Septum Intact interatrial septum visualized by color flow imaging. Aortic Valve The aortic valve is probable trileaflet. There is mild aortic valve sclerosis. There is no aortic valve stenosis. There is no aortic valve regurgitation. Pulmonic Valve The pulmonic valve is not well visualized. Mitral Valve The mitral valve has thickened leaflets. There is mild mitral valve regurgitation. The mitral valve annulus is mildly calcified. Tricuspid Valve There is mild tricuspid valve regurgitation. Pericardium/Pleural The pericardium appears epicardial fat pad. There is small anterior pericardial effusion. Inferior Vena Cava Normal inferior vena cava with <50% collapse upon inspiration consistent with elevated right atrial pressure, 8 mmHg. Aorta The aortic root size at the sinus of Valsalva is normal. Left Ventricular Outflow Tract Name Value Normal LVOT 2D LVOT Diameter 1.9 cm LVOT Doppler LVOT Peak Gradient 5 mmHg LVOT Mean Gradient 3 mmHg LVOT VTI 25 cm LVOT VTI/AV VTI Ratio 0.5 LVOT Stroke Volume 67 ml LVOT CO 5.0 l/min LVOT CI 2.5 l/min/m2 Pulmonic Valve Name Value Normal
[2023-02-13] MEDS: cefTRIAXone 2 GM/NS 100 ML 2 GM/100 ML BAG IVPB (05:52)
[2023-02-13] MEDS: AZITHROMYCIN 500 MG/NS 250 ML 500 MG/250 ML BAG 250 MG IVPB (06:17)
[2023-02-13] MEDS: LEVOTHYROXINE SODIUM 100 MCG TABLET PO (06:17)
--- NOTE | 2023-02-13 09:37 | PM.CNCAR ---
Assessment and Plan Assessment and plan (1) Chest pain: Code(s): R07.9 - Chest pain, unspecified Status: Acute Assessment and Plan: Patient denies having any chest pain. She has shortness of breath related to pneumonia. Troponin levels were drawn and were negative. EKG with no ischemic STTW abnormalities. An echo was ordered and will be reviewed. No further cardiac workup is recommended. (2) Community acquired pneumonia: Code(s): J18.9 - Pneumonia, unspecified organism Status: Acute Assessment and Plan: Management per primary team (3) Ventricular premature depolarization: Code(s): I49.3 - Ventricular premature depolarization Status: Acute Assessment and Plan: Continue beta lina (4) Nonrheumatic mitral valve disorder, unspecified: Code(s): I34.9 - Nonrheumatic mitral valve disorder, unspecified Status: Acute Assessment and Plan: Echo pending. History of Present Illness History of Present Illness Consult date/time: 02/13/23 09:37 Requesting physician: Merritt Long MD Consult reason: chest pain Reason For Visit: chest pain, upper lobe opacity Narrative: Angela Munoz is a 77 year old female presenting to the hospital with a chief complaint of extreme fatigue. For the past several days she has been experiencing fatigue, brain fog, and shortness of breath. She denies having any chest pain but does state she is having some discomfort in her right breast. She does have a history of mitral valve regurgitation and PVC's and follows with Dr. Lopez. She has not been having any chest pain, swelling, syncope, pre-syncope. She does feel occasional palpitations. Workup in the emergency department was significant for chest X ray showing right upper lobe opacity concerning for infection. WBC 11.6. She is being treated for pneumonia. Her troponin levels were negative and EKG showed sinus rhythm with PVC's. At the time of my visit with her she has no complaints. Review of Systems Review of Systems: All systems reviewed & are unremarkable except as noted in HPI and below PMFSH Past Medical History Medical History Adult hypothyroidism Asthma childhood Family History Family History Mother Family history of tuberculosis Sibling Patient's brother is in good health Father Family history of congestive heart failure, Onset Age: 91 Patient's father is Other Cerebrovascular accident Diabetes mellitus Family history of malignant neoplasm of male breast Social History Social History Smoking status: Never smoker Alcohol intake: current Alcohol use details: rarely wine Substance use: former Substance use type: marijuana Other substance usage details: in the 1960s Lack of Transportation: No Lack of Food: Never True Current Housing: I Have Housing Concerned About Future Housing: No Difficulty Paying Gas/Electric Bills: No Difficulty Paying for Meds: No Currently Unemployed: No Education: Master's Degree or Higher Difficulty w/ Childcare or Family Care: No Living arrangements: with family Spiritual care concerns: No Meds Home Medications and Allergies Home Medications Medication Instructions Recorded Confirmed Type metoprolol succinate 25 mg 25 mg PO DAILY 10/01/19 02/12/23 History tablet,extended release 24 hr ibuprofen 200 mg tablet (Advil) 200 mg PO Q6H PRN Pain 02/21/21 02/12/23 History diphenhydramine HCl 25 mg capsule 25 mg PO QHS PRN Sleep 05/21/22 02/12/23 History (Benadryl) phenylephrine 0.25 %-mineral oil 1 applic RECTAL QAM AND QHS PRN 08/23/22 02/12/23 History 14 %-petrolatm 74.9 % rectal Hemorrhoids ointment (Preparation H) psyllium husk 3.4 gram/5.4 gram 1 tbsp PO IVETTE
[2023-02-13] MEDS: METOPROLOL SUCCINATE EXT REL 25 MG TABCR PO (10:03)
[2023-02-13] MEDS: PSYLLIUM POWDER PACKET 1 PACKET PO (10:03)
[2023-02-13] MEDS: ASPIRIN 81 MG CHEWABLE TABLET PO (10:07)
--- NOTE | 2023-02-13 13:39 | PM.IMPN ---
Progress Note: A&P Assessment and Plan (1) Chest pain: Code(s): R07.9 - Chest pain, unspecified Status: Acute Assessment and Plan: atypical chest pain, likely secondary to pneumonia echo is pending pt seen by cardiology EKG with no ischemic abnormalities.? (2) Community acquired pneumonia: Code(s): J18.9 - Pneumonia, unspecified organism Status: Acute Assessment and Plan: [place] [id number] continue iv abx follow cultures (3) Vitamin D deficiency: Code(s): E55.9 - Vitamin D deficiency, unspecified Status: Acute Assessment and Plan: chronic and stable Subjective Date/time seen: 02/13/23 13:39 Interval history: 77-year-old female with past medical history significant for obstructive sleep apnea on CPAP at nighttime. Pt admitted for CAP doing better hopeful DC in 1-2 days time Review of Systems Review of Systems: tired and fatigued Exam Const: General: other (older lady tired ) Nutritional Appearance: overweight Orientation/consciousness: oriented to person HENMT: Head: normal to inspection Resp: Effort & Inspection: no respiratory distress Auscultation: no rhonchi and no wheezes Cardio: Rate: regular rate Rhythm: regular rhythm GI: Inspection: normal to inspection GI Palp: No abdominal tenderness, No Guarding due to palpation present (GI) and No Hepatomegaly present Auscultation: normal bowel sounds Neuro: General: oriented to person Objective Data Vital Signs Vital Signs: Vital Signs - 24 hr 02/12/23 14:01 02/12/23 15:01 02/12/23 15:35 Temperature 36.2 C L Pulse Rate 82 80 80 Respiratory Rate 11 L 16 16 Blood Pressure 112/71 133/86 115/63 Pulse Oximetry 96 97 97 Oxygen Delivery 02/12/23 18:00 02/12/23 19:55 02/12/23 20:00 Temperature 36.3 C L Pulse Rate 83 83 82 Respiratory Rate 16 16 Blood Pressure 114/57 L Pulse Oximetry 97 96 Oxygen Delivery Room Air 02/12/23 20:00 02/12/23 22:14 02/12/23 22:00 Temperature Pulse Rate 82 88 Respiratory Rate Blood Pressure Pulse Oximetry 96 Oxygen Delivery Autopap 02/13/23 00:00 02/13/23 00:00 02/13/23 00:00 Temperature 36.1 C L Pulse Rate 89 89 88 Respiratory Rate 16 16 Blood Pressure 110/55 L Pulse Oximetry 97 97 Oxygen Delivery CPAP 02/13/23 02:00 02/13/23 04:00 02/13/23 04:00 Temperature Pulse Rate 87 86 86 Respiratory Rate 16 Blood Pressure Pulse Oximetry 97 Oxygen Delivery CPAP 02/13/23 04:00 02/13/23 06:00 02/13/23 08:00 Temperature 36.3 C L 36.6 C Pulse Rate 85 84 79 Respiratory Rate 16 16 Blood Pressure 112/61 103/52 L Pulse Oximetry 95 94 Oxygen Delivery 02/13/23 08:45 02/13/23 08:00 02/13/23 10:00 Temperature Pulse Rate 78 76 Respiratory Rate Blood Pressure Pulse Oximetry 93 Oxygen Delivery Room Air 02/13/23 12:00 02/13/23 12:00 Temperature 35.9 C L Pulse Rate 73 82 Respiratory Rate 16 Blood Pressure 108/47 L Pulse Oximetry 95 Oxygen Delivery Intake/Output Intake/Output: Intake & Output 02/10/23 02/11/23 02/12/23 02/13/23 23:59 23:59 23:59 23:59 Intake Total 960 300 Balance 960 300 Meds/Results Medications: Active Medications Generic Name Dose Route Start Last Admin Trade Name Louisq PRN Reason Stop Dose Admin Aspirin 81 mg 02/13/23 08:00 02/13/23 10:07 Aspirin 81 Mg Chewable Tablet PO 81 mg DAILY@0800 LATISHA Administration Diphenhydramine HCl 25 mg 02/13/23 03:43 Diphenhydramine Hcl Cap 25 Mg Capsule PO QHS PRN Sleep Ceftriaxone Sodium 2 gm in 100 mls @ 200 mls/hr 02/13/23 05:00 02/13/23 05:52 Rocephin 2 Gm/Ns 100 Ml IVPB 200 mls/hr Q24H LATISHA Administration Azithromycin 500 mg in 250 mls @ 250 mls/hr 02/13/23 05:00 02/13/23 06:17 Zithromax IVPB 250 mls/hr Q24H LATISHA Administration Levothyroxine Sodium 100 mcg 02/13/23 06:30 02/13/23 06:17
[2023-02-14] VITALS (9 sets, daily range): BP systolic 118–135; BP diastolic 58–78; PULSE 75–107; RESP 16–20; TEMP 36.2–36.7; O2SAT 95–97
[2023-02-14] MEDS: cefTRIAXone 2 GM/NS 100 ML 2 GM/100 ML BAG IVPB (04:52)
[2023-02-14] MEDS: LEVOTHYROXINE SODIUM 100 MCG TABLET PO (05:34)
[2023-02-14] MEDS: AZITHROMYCIN 500 MG/NS 250 ML 500 MG/250 ML BAG 250 MG IVPB (05:34)
[2023-02-14] MEDS: METOPROLOL SUCCINATE EXT REL 25 MG TABCR PO (08:40)
[2023-02-14] MEDS: PSYLLIUM POWDER PACKET 1 PACKET PO (08:40)
[2023-02-14] MEDS: ASPIRIN 81 MG CHEWABLE TABLET PO (08:44)
--- NOTE | 2023-02-14 08:56 | PM.IMPN ---
Progress Note: A&P Assessment and Plan (1) Chest pain: Code(s): R07.9 - Chest pain, unspecified Status: Acute Assessment and Plan: Atypical chest pain, likely secondary to pneumonia Echo is pending pt seen by cardiology EKG with no ischemic abnormalities.? (2) Community acquired pneumonia: Code(s): J18.9 - Pneumonia, unspecified organism Status: Acute Assessment and Plan: [place] [id number] continue iv abx follow cultures (3) Vitamin D deficiency: Code(s): E55.9 - Vitamin D deficiency, unspecified Status: Acute Assessment and Plan: chronic and stable Plan DVT prophylaxis with SCDs GI prophylaxis not indicated Code status full code Subjective Date/time seen: 02/14/23 08:56 Interval history: 77-year-old female with past medical history significant for obstructive sleep apnea on CPAP at nighttime. Pt admitted for CAP doing better hopeful DC in 1-2 days time Review of Systems Review of Systems: 12 point review of systems was assessed and was negative except as noted in the HPI Exam Narrative: General: No acute distress, alert and oriented per baseline HEENT: Atraumatic, normocephalic, mucous membranes moist CV: Regular rate and rhythm, S1, S2 Lungs: Clear to auscultation bilaterally, no rales or crackles noted, no wheezes, good air entry Abdomen: Soft, nontender, nondistended Extremities: Normal to inspection Skin: No rashes noted, no lesions or wounds seen Psych: Euthymic, normal affect Objective Data Vital Signs Vital Signs: Vital Signs - 24 hr 02/13/23 10:00 02/13/23 12:00 02/13/23 12:00 Temperature 96.7 F L Pulse Rate 76 73 82 Respiratory Rate 16 Blood Pressure 108/47 L Pulse Oximetry 95 Oxygen Delivery 02/13/23 14:00 02/13/23 16:00 02/13/23 16:00 Temperature 97.2 F L Pulse Rate 80 94 91 Respiratory Rate 16 Blood Pressure 131/67 Pulse Oximetry 95 Oxygen Delivery 02/13/23 18:00 02/13/23 20:00 02/13/23 20:46 Temperature 98.9 F Pulse Rate 82 94 Respiratory Rate 97 H Blood Pressure 120/64 Pulse Oximetry 97 96 Oxygen Delivery Room Air 02/13/23 20:00 02/13/23 20:00 02/13/23 22:00 Temperature Pulse Rate 93 93 78 Respiratory Rate 20 Blood Pressure Pulse Oximetry 96 Oxygen Delivery Room Air 02/14/23 00:00 02/14/23 00:00 02/14/23 00:00 Temperature 98.1 F Pulse Rate 84 83 84 Respiratory Rate 20 16 Blood Pressure 118/58 L Pulse Oximetry 96 97 Oxygen Delivery CPAP 02/14/23 02:00 02/14/23 04:00 02/14/23 04:00 Temperature Pulse Rate 81 80 80 Respiratory Rate 16 Blood Pressure Pulse Oximetry 97 Oxygen Delivery CPAP 02/14/23 04:00 02/14/23 06:00 02/14/23 08:18 Temperature 97.3 F L Pulse Rate 81 78 Respiratory Rate 16 Blood Pressure 126/62 Pulse Oximetry 95 96 Oxygen Delivery Room Air 02/14/23 08:00 Temperature 97.2 F L Pulse Rate 93 Respiratory Rate 16 Blood Pressure 129/72 Pulse Oximetry 95 Oxygen Delivery Intake/Output Intake/Output: Intake & Output 02/11/23 02/12/23 02/13/23 02/14/23 23:59 23:59 23:59 23:59 Intake Total 960 1490 720 Balance 960 1490 720 Meds/Results Medications: Active Medications Generic Name Dose Route Start Last Admin Trade Name Louisq PRN Reason Stop Dose Admin Aspirin 81 mg 02/13/23 08:00 02/14/23 08:44 Aspirin 81 Mg Chewable Tablet PO 81 mg DAILY@0800 LATISHA Administration Diphenhydramine HCl 25 mg 02/13/23 03:43 Diphenhydramine Hcl Cap 25 Mg Capsule PO QHS PRN Sleep Ceftriaxone Sodium 2 gm in 100 mls @ 200 mls/hr 02/13/23 05:00 02/14/23 05:34 Rocephin 2 Gm/Ns 100 Ml IVPB Infused Q24H LATISHA Infusion Azithromycin 500 mg in 250 mls @ 250 mls/hr 02/13/23 05:00 02/14/23 05:34 Zithromax IVPB 250 mls/hr Q24H LATISHA Administration Levothyroxine Sodium 100 mcg 02/13/23 06:30
[2023-02-14 13:17] LABS: Basophils Absolute Auto 0.1 K/mm3 (0.0-0.1); Basophils Percent Auto 0.8 % (0.2-1.2); Eosinophils Absolute Auto 0.1 K/mm3 (0-0.3); Eosinophils Percent Auto 1.1 % (0-4.4); Hematocrit 40.3 % (37.0-47.0); Immature Granulocyte Absolute 0.04 K/mm3 (0.00-0.031); Immature Granulocyte Percent A 0.5 % (0-0.5); Lymphocytes Absolute Auto 1.27 K/mm3 (0.9-3.2); Lymphocytes Percent Auto 15.1 % (18.3-44.2); Mean Corpuscular HGB Conc 32.3 g/dl (32-36); Mean Corpuscular Hemoglobin 31.2 pg (26-34); Mean Corpuscular Volume 96.6 fl (80-100); Mean Platelet Volume 10.8 fl (7.4-10.4); Monocytes Absolute Auto 0.9 K/mm3 (0.1-0.6); Monocytes Percent Auto 10.8 % (2.6-8.5); Neutrophils Percent Auto 71.7 % (45.5-73.1); Platelet Count Result 156 k/mm3 (150-375); Red Blood Count 4.17 M/mm3 (4.2-5.4); Red Cell Distribution Width 12.4 % (11.5-14.5); White Blood Count 8.4 K/mm3 (4.5-10.0)
[2023-02-14 13:27] LABS: Alanine Aminotransferase 21 U/L (6-35); Albumin Level 3.3 g/dL (3.5-5.1); Alkaline Phosphatase 57 U/L (38-126); Anion Gap 3 mmol/L (8-16); Aspartate Amino Transferase 25 U/L (14-36); Bilirubin,Total 0.4 mg/dL (0.2-1.3); Blood Urea Nitrogen 15 mg/dL (7-17); Calcium 8.2 mg/dL (8.4-10.2); Carbon Dioxide 27 mmol/L (22-30); Chloride 105 mmol/L (98-107); Estimated CRCL calculation 54 ml/min; Estimated Glomerular Filt Rate > 60; Glucose 112 mg/dL (65-110); Potassium 3.6 mmol/L (3.4-5.0); Sodium 135 mmol/L (137-145)
--- NOTE | 2023-02-14 15:33 | PM.DS ---
DS: Admitting Diagnosis Discharge Date 02/14/23 Admitting Diagnosis sob DS: Discharge Diagnosis Discharge Diagnosis (1) Chest pain: Code(s): R07.9 - Chest pain, unspecified Status: Acute Assessment and Plan: Atypical chest pain, likely secondary to pneumonia Echo is pending pt seen by cardiology EKG with no ischemic abnormalities.? (2) Community acquired pneumonia: Code(s): J18.9 - Pneumonia, unspecified organism Status: Acute Assessment and Plan: [place] [id number] continue iv abx follow cultures (3) Vitamin D deficiency: Code(s): E55.9 - Vitamin D deficiency, unspecified Status: Acute Assessment and Plan: chronic and stable Plan DVT prophylaxis with SCDs GI prophylaxis not indicated Code status full code DS: Summary Hospital Course Hospital Course: 77-year-old female presenting with shortness of breath and found to have community-acquired pneumonia. She was started antibiotics and symptoms improved. Repeat CT in 3 months was recommended as the opacity was somewhat atypical looking. Cardiology was consulted an echo was ordered showing some mild diastolic dysfunction normal EF no other abnormalities other than mitral valve regurgitation. Please see above and med rec for details. Time Spent with Patient Time attestation: Total time spent providing and/or coordinating discharge services: Exam Narrative: General: No acute distress, alert and oriented per baseline HEENT: Atraumatic, normocephalic, mucous membranes moist CV: Regular rate and rhythm, S1, S2 Lungs: Clear to auscultation bilaterally, no rales or crackles noted, no wheezes, good air entry Abdomen: Soft, nontender, nondistended Extremities: Normal to inspection Skin: No rashes noted, no lesions or wounds seen Psych: Euthymic, normal affect DS: Data Data Completed and Pending Labs on day of discharge: Labs from last 24 hours 02/14/23 13:09 WBC 8.4 RBC 4.17 L Hgb 13.0 Hct 40.3 MCV 96.6 MCH 31.2 MCHC 32.3 RDW 12.4 Plt Count 156 MPV 10.8 H Immature Gran % (Auto) 0.5 Neut % (Auto) 71.7 Lymph % (Auto) 15.1 L [place] % (Auto) 10.8 H Eos % (Auto) 1.1 Baso % (Auto) 0.8 Lymph # (Auto) 1.27 [place] # (Auto) 0.9 H Eos # (Auto) 0.1 Baso # (Auto) 0.1 Abs Immat Gran (auto) 0.04 H Absolute Neuts (auto) 6.0 Absolute Nucleated RBC 0.0 Nucleated RBC % 0.0 Sodium 135 L Potassium 3.6 Chloride 105 Carbon Dioxide 27 Anion Gap 3 L BUN 15 Creatinine 0.80 Estim Creat Clear Calc 54 Estimated GFR > 60 Glucose 112 H Calcium 8.2 L Total Bilirubin 0.4 AST 25 ALT 21 Alkaline Phosphatase 57 Total Protein 6.0 L Albumin 3.3 L Preliminary micro results at discharge 02/13/23 04:39 Blood Culture - Preliminary Blood 02/13/23 04:39 Blood Culture - Preliminary Blood Discharge Plan Discharge Attending physician on discharge: Indu Hartley Consulting providers: Segundo Reynolds Discharging Clinician: Indu Hartley Patient Disposition: Home, Self-Care Activity: as tolerated Diet: as tolerated Patient Instructions: Antibiotic Form Stand Alone Forms: General Discharge Information Follow-up/Referrals: Segundo Reynolds MD [Physician] - [facility],Robbie Apple MD [Primary Care Provider] - Discharge Medications: New aspirin [Children's Aspirin] 81 mg Tablet,Chewable 81 mg PO DAILY@0800 30 Days Qty: 30 0RF azithromycin 250 mg tablet 250 mg PO DAILY 2 Days Qty: 2 0RF Rx Instructions: start on day 2 of therapy amoxicillin-pot clavulanate 875-125 mg tablet 1 tablet PO Q12H 5 Days Qty: 10 0RF Continued metoprolol succinate 25 mg tablet extended release 24 hr 25 mg PO DAILY diphenhydramine HCl [Benadryl] 25 mg capsule 25 mg PO QHS PRN (Reason: Sleep) Preparation H 0.25-14-74.9 % Ointment 1 applic RECTAL QAM AND QHS PRN (Reason:
== END 2023-02-14 16:07 | disposition home or self-care (01) | DRG 195 ==
LOC: ANHED 12:28 → ANHIMU 16:01
PROVIDERS: Admitting Provider Internal Medicine; Emergency Provider General Practice; PCP Internal Medicine; Visit Provider Student in an Organized Health Care Education/Training Program
DX: J18.9 Pneumonia, unspecified organism (principal); E55.9 Vitamin D deficiency, unspecified; E03.9 Hypothyroidism, unspecified; G47.33 Obstructive sleep apnea (adult) (pediatric); I49.3 Ventricular premature depolarization; I34.9 Nonrheumatic mitral valve disorder, unspecified; I34.0 Nonrheumatic mitral (valve) insufficiency; Z99.89 Dependence on other enabling machines and devices; Z20.822 Contact with and (suspected) exposure to COVID-19
CPT/HCPCS: 36415; 71046; 71275; 80053; 81001; 83690; 84484; 85025; 85380; 85610; 85730; 87040; 87636; 93005; 93306; 96365; 96367; 96374; 96375; 99285; A9270; G0378; J0456; J0696; J2405; Q9967

== ENCOUNTER 2023-05-12 17:54 | Emergency (ER) | payer MEDICARE, SELFPAY ==
--- NOTE | 2023-05-12 18:03 | ED.SKABFB ---
HPI - Skin/Abscess/Foreign Bdy General Chief complaint: Skin/Abscess/Foreign Body Stated complaint: Rash on left arm Time Seen by Provider: 05/12/23 18:03 Source: patient Mode of arrival: ambulatory Limitations: no limitations History of Present Illness HPI narrative: Patient is a 78-year-old female who presents with redness to skin on left arm. Patient states the redness started growing today. Denies any trauma or bite to the arm. Patient denies any pain to area. Concern for infection. Denies any fever, chills, nausea, vomiting, diarrhea. Denies any numbness, tingling or weakness to hand. Related Data Home Medications Medication Instructions Recorded Confirmed metoprolol succinate 25 mg 25 mg PO DAILY 10/01/19 05/12/23 tablet,extended release 24 hr diphenhydramine HCl 25 mg capsule 25 mg PO QHS PRN Sleep 05/21/22 05/12/23 (Benadryl) Allergies Allergy/AdvReac Type Severity Reaction Status Date / Time No Known Allergies Allergy Unknown Verified 05/12/23 18:15 Review of Systems Review of Systems: All systems reviewed & are unremarkable except as noted in HPI and below Constitutional: Constitutional: Denies body ache(s), Denies chills, Denies fatigue, Denies fever(s), Denies headache(s), Denies malaise and Denies weakness Eyes: Eyes: Denies blurry vision, Denies irritation and Denies loss of vision ENT: Denies otalgia, Denies headache(s), Denies nasal discharge, Denies sinus pain and Denies sore throat Cardiovascular: Cardiovascular: Denies chest pain, Denies irregular heart rhythm and Denies dyspnea Respiratory: Respiratory: Denies dyspnea Gastrointestinal: Gastrointestinal: Denies abdominal pain, Denies melena, Denies hematochezia, Denies diarrhea, Denies nausea and Denies vomiting Musculoskeletal: Musculoskeletal: Denies back pain, Denies myalgias and Denies arthralgias Integumentary/Breasts: Skin/Breast: Denies pruritus, Reports erythema and Denies rash Neurologic: Denies headache(s), Denies loss of vision and Denies weakness Psychiatric: Psychiatric: Reports no additional psychiatric complaints Endocrine: Endocrine: Denies fatigue PMFSH Past Medical History Medical History Adult hypothyroidism Asthma childhood Family History Family History Mother Family history of tuberculosis Sibling Patient's brother is in good health Father Family history of congestive heart failure, Onset Age: 91 Patient's father is Other Cerebrovascular accident Diabetes mellitus Family history of malignant neoplasm of male breast Social History Social History Smoking status: Never smoker Alcohol intake: current Alcohol use details: rarely wine Substance use: former Substance use type: marijuana Other substance usage details: in the 1960s Lack of Transportation: No Lack of Food: Never True Current Housing: I Have Housing Concerned About Future Housing: No Difficulty Paying Gas/Electric Bills: No Difficulty Paying for Meds: No Currently Unemployed: No Education: Master's Degree or Higher Difficulty w/ Childcare or Family Care: No Living arrangements: with family Spiritual care concerns: No Comments At time of signature, agree with nursing past medical, surgical, social and family history. There is no relevant family history pertinent to the presenting complaint. Exam Const: General: cooperative, healthy appearing, comfortable, no acute distress and well nourished Nutritional Appearance: well nourished Orientation/consciousness: patient oriented x3 Limitations: no limitations HENMT: Head: normal to inspection, normocephalic and atraumatic Ears: hearing grossly normal bilaterally and external ears normal Face/Nose/Sinus: Normal external nose present, normal facial exam and face
[2023-05-12 18:19] VITALS: BP 115/80; PULSE 76; RESP 16; TEMP 37.1; O2SAT 97
== END 2023-05-12 18:42 | disposition home or self-care (01) ==
PROVIDERS: Emergency Provider Nurse Practitioner Family
DX: L03.114 Cellulitis of left upper limb (principal); Z79.899 Other long term (current) drug therapy
CPT/HCPCS: 99213; G0463

== ENCOUNTER 2023-06-02 13:49 | Outpatient (CLI) | payer MEDICARE, SELFPAY ==
--- NOTE | ~2023-06-02 | CT_ITS ---
CT Scan of the Chest without Contrast: Clinical Indication: Abnormal findings of diagnostic imaging Technique: Contiguous sections were acquired throughout the chest without intravenous contrast. Dose reduction technique was used on this scan by utilizing automated exposure control and iterative recon struction technique. The dose-length product (DLP) was 349.51 mGy-cm. COMPARISON: 02/12/2023 Findings: Stable enlarged thyroid gland. There is no evidence of any significant mediastinal, hilar or axillary lymphadenopathy. The mediastin al soft tissues appear normal. There is no evidence of pleural or pericardial effusion. Right upper lobe airspace consolidation is mildly improved from prior exam. Left lung is clear. Images through the upper abdomen reveal large calcified gallstone. Impression: Mild interval improvement in right upper lobe airspace consolidation, consistent with improving pneum onia. Cholelithiasis. Stable enlarged thyroid gland. Reviewed, dictated and finalized at [facility]. Impression: Mild interval improvement in right upper lobe airspace consolidation, consisten t with improving pneumonia. Cholelithiasis. Stable enlarged thyroid gland.
== END 2023-06-02 13:50 | disposition home or self-care (01) ==
LOC: ANHIMG 13:52
PROVIDERS: PCP Nurse Practitioner; Visit Provider Nurse Practitioner
DX: R93.89 Abnormal findings on diagnostic imaging of other specified body structures (principal); K80.20 Calculus of gallbladder without cholecystitis without obstruction
CPT/HCPCS: 71250

== ENCOUNTER 2023-06-07 15:36 | Emergency (ER) | payer MEDICARE, SELFPAY ==
--- NOTE | 2023-06-07 16:36 | ED.GENADULT ---
HPI - General Adult General Chief complaint: Upper Respiratory Infection Stated complaint: Respiratory Problems Source: patient Mode of arrival: ambulatory Limitations: no limitations History of Present Illness HPI narrative: Patient presents for evaluation of sick symptoms. She states she developed a sore throat approximately 3 weeks ago. About one week ago she developed a cough, which has persisted since that time. Cough is productive in the morning, but becomes nonproductive as the day progresses. She was admitted to [facility] in January of this year for community acquired pneumonia. She was treated with IV abx, which were transitioned to oral augmentin and azithromycin upon discharge. There was an atypical appearance to her pneumonia so it was recommended she have a follow up CT chest in three months. echocardiogram was performed while hospitalized that showed mild diastolic dysfunction with normal ejection fraction and mitral valve regurgitation. She had a follow up CT chest on 06/02/23 which showed Mild interval improvement in right upper lobe airspace consolidation consistent with improving pneumonia, cholelithiasis and stable enlarged thyroid gland. It sounds like she received a call regarding her CT results but abx therapy was not initiated. She denies any fever, chills, nausea, vomiting or diarrhea. Her granddaughter, with whom she lives, recently had a respiratory infection. She does not smoke. She took a home COVID test earlier this week which was negative. She also reports a pruritic rash to her back that started in the last week. No new lotions, soaps, detergents or topical products. She tried what sounds to be benadryl cream, without much improvement. Related Data Home Medications Medication Instructions Recorded Confirmed metoprolol succinate 25 mg 25 mg PO DAILY 10/01/19 06/07/23 tablet,extended release 24 hr diphenhydramine HCl 25 mg capsule 25 mg PO QHS PRN Sleep 05/21/22 06/07/23 (Benadryl) Allergies Allergy/AdvReac Type Severity Reaction Status Date / Time No Known Allergies Allergy Unknown Verified 05/20/23 10:52 Review of Systems Review of Systems: CONSTITUTIONAL: Denies fever, chills, or sweats. EYES: Denies visual changes, redness, or discharge. ENT: Reports sore throat. Denies rhinorrhea, congestion, or otalgia. CARDIOVASCULAR: Denies chest pain, palpitations, or edema. RESPIRATORY:Reports cough and mild SOB only while coughing. GASTROINTESTINAL: Denies abdominal pain, nausea, vomiting, or diarrhea. GENITOURINARY: Denies dysuria or hematuria. SKIN: Reports pruritic rash to her back. MUSCULOSKELETAL: Denies back pain, joint pain, or myalgia. NEUROLOGIC: Denies headache, numbness, dizziness, or weakness. PSYCHIATRIC: Denies anxiety or depression. [facility] Past Medical History Medical History (Updated 06/07/23 @ 16:42 by KEVIN Roberts, ) Adult hypothyroidism Asthma childhood Community acquired pneumonia Family history non-contributory Hypertension Family History Family History Mother Family history of tuberculosis Sibling Patient's brother is in good health Father Family history of congestive heart failure, Onset Age: 91 Patient's father is Other Cerebrovascular accident Diabetes mellitus Family history of malignant neoplasm of male breast Social History Social History Smoking status: Never smoker Alcohol intake: current Alcohol use details: rarely wine Substance use: former Substance use type: marijuana Other substance usage details: in the 1960s Lack of Transportation: No Lack of Food: Never True Current Housing: I Have Housing Concerned About Future Housing: No Difficulty Paying Gas/Electric Bills: No Difficulty Paying for Meds: No Currently Unemployed: No Educatio
[2023-06-07 16:37] VITALS: BP 116/76; PULSE 90; RESP 16; TEMP 36.6; O2SAT 97
== END 2023-06-07 16:38 | disposition home or self-care (01) ==
PROVIDERS: Emergency Provider Nurse Practitioner; PCP Nurse Practitioner
DX: J18.9 Pneumonia, unspecified organism (principal); R21 Rash and other nonspecific skin eruption; E03.9 Hypothyroidism, unspecified; I10 Essential (primary) hypertension
CPT/HCPCS: 71046; 87081; 87804; 87880; 99213; G0463

== ENCOUNTER 2023-06-20 10:36 | Emergency (ER) | payer MEDICARE, SELFPAY ==
[2023-06-20] VITALS (16 sets, daily range): BP systolic 125–139; BP diastolic 69–88; PULSE 72–94; RESP 12–21; TEMP 36.8; O2SAT 94–99
--- NOTE | ~2023-06-20 | XR_ITS ---
XR chest 1V portable DATE: 06/20/2023 15:05 INDICATION: Asthma. History of pneumonia. TECHNIQUE: Portable upright AP chest on 06/20/2023 the 14th 7 hours COMPARISON: 06/02/2023 CT chest FINDINGS: Cardiomegaly. Aortic calcification and mild tortuosity. No hilar or mediastinal enlargement . Mild discoid atelectasis or scarring, right mid lung. The lungs otherwise appear clear of infiltrate or consolidation. No pleural effusion or pulmonary vascular congestion or pneumothorax is evident. Diffuse osteopenia. IMPRESSION: Cardiomegaly Mild discoid atelectasis or scarring, right midlung Reviewed, dictated and finalized at location [facility].
--- NOTE | 2023-06-20 10:50 | ED.NAVMDI ---
HPI - Nausea/Vomiting/Diarrhea General Chief complaint: Nausea/Vomiting/Diarrhea Stated complaint: Diarrhea Time Seen by Provider: 06/20/23 10:48 Source: patient Mode of arrival: ambulatory Limitations: no limitations History of Present Illness HPI Narrative: 78 years old white female came from home by private car complaining of not feeling well and weak for over 1 month. 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 Patient still feeling tired and weak. Work-up this morning with 3 BM of clear liquid diarrhea. Patient report her grandkids have viral infection, tested negative for COVID at home prior to arrival, been having chronic cough for over 1 month. She denies any fever or chills, nausea or vomiting, chest pain or shortness of breath. Just generally weak Related Data Home Medications Medication Instructions Recorded Confirmed metoprolol succinate 25 mg 25 mg PO DAILY 10/01/19 06/12/23 tablet,extended release 24 hr diphenhydramine HCl 25 mg capsule 25 mg PO QHS PRN Sleep 05/21/22 06/12/23 (Benadryl) Allergies Allergy/AdvReac Type Severity Reaction Status Date / Time No Known Allergies Allergy Unknown Verified 06/12/23 15:00 Review of Systems Review of Systems: All systems reviewed & are unremarkable except as noted in HPI and below PMFSH Past Medical History Medical History Adult hypothyroidism Asthma childhood Community acquired pneumonia Family history non-contributory Hypertension Family History Family History Mother Family history of tuberculosis Sibling Patient's brother is in good health Father Family history of congestive heart failure, Onset Age: 91 Patient's father is Other Cerebrovascular accident Diabetes mellitus Family history of malignant neoplasm of male breast Social History Social History Smoking status: Never smoker Alcohol intake: current Alcohol use details: rarely wine Substance use: former Substance use type: marijuana Other substance usage details: in the 1960s Lack of Transportation: No Lack of Food: Never True Current Housing: I Have Housing Concerned About Future Housing: No Difficulty Paying Gas/Electric Bills: No Difficulty Paying for Meds: No Currently Unemployed: No Education: Master's Degree or Higher Difficulty w/ Childcare or Family Care: No Living arrangements: with family Spiritual care concerns: No Exam Narrative: General appearance: Well-developed, well-nourished Skin: Normal color Head: Normocephalic, nontraumatic Eyes: Clear conjunctiva ENT: Oropharynx normal, ears normal, nose normal Neck: Supple, nontender Chest and respiratory: Airway patent, no respiratory distress, no accessory muscle use Heart: Regular rate/rhythm Abdomen: Soft, nontender, no organomegaly, quiet bowel sounds Vascular: Normal peripheral pulses, normal capillary refill. Musculoskeletal: Normal range of motion, nontender back Neurologic: Alert and oriented ?3, [place] [place] is normal as tested, no gross motor deficit Course Vital Signs Vital signs: Vital Signs Temperature 36.8 C 06/20/23 10:47 Pulse Rate 94 06/20/23 10:47 Respiratory Rate 18 06/20/23 10:47 Blood Pressure 125/69 06/20/23 10:47 Pulse Oximetry 98 06/20/23 10:47 Temperature 36.8 C 06/20/23 10:47 Pulse Rate 77 06/20/23 13:39 Respiratory Rate 15 06/20/23 13:39 Blood Pressure 129/83 06/20/23 13:39
[2023-06-20 11:09] LABS: Eosinophils Absolute Auto 0.1 K/mm3 (0-0.3); Eosinophils Percent Auto 3.5 % (0-4.4); Hematocrit 47.9 % (37.0-47.0); Hemoglobin 15.5 g/dL (12.0-15.0); Immature Granulocyte Absolute 0.01 K/mm3 (0.00-0.031); Immature Granulocyte Percent A 0.3 % (0-0.5); Lymphocytes Absolute Auto 0.82 K/mm3 (0.9-3.2); Lymphocytes Percent Auto 20.8 % (18.3-44.2); Mean Corpuscular HGB Conc 32.4 g/dl (32-36); Mean Corpuscular Hemoglobin 30.2 pg (26-34); Mean Corpuscular Volume 93.4 fl (80-100); Mean Platelet Volume 10.6 fl (7.4-10.4); Monocytes Absolute Auto 0.5 K/mm3 (0.1-0.6); Monocytes Percent Auto 13.2 % (2.6-8.5); Neutrophils Absolute Auto 2.4 K/mm3 (1.3-6.7); Neutrophils Percent Auto 61.2 % (45.5-73.1); Platelet Count Result 227 k/mm3 (150-375); Red Blood Count 5.13 M/mm3 (4.2-5.4); Red Cell Distribution Width 12.6 % (11.5-14.5)
[2023-06-20 11:19] LABS: Alanine Aminotransferase 22 U/L (6-35); Albumin Level 3.8 g/dL (3.5-5.1); Alkaline Phosphatase 71 U/L (38-126); Anion Gap 9 mmol/L (8-16); Aspartate Amino Transferase 28 U/L (14-36); Bilirubin,Total 0.6 mg/dL (0.2-1.3); Blood Urea Nitrogen 12 mg/dL (7-17); Calcium 9.1 mg/dL (8.4-10.2); Carbon Dioxide 20 mmol/L (22-30); Chloride 109 mmol/L (98-107); Estimated Glomerular Filt Rate 60; Glucose 107 mg/dL (65-110); Potassium 3.8 mmol/L (3.4-5.0); Sodium 138 mmol/L (137-145)
[2023-06-20] MEDS: SODIUM CHLORIDE 0.9% IV 1,000 ML 999 ML IV CONT (11:25)
[2023-06-20 12:49] LABS: Influenza A QL RT-PCR Negative (Negative); Influenza B QL RT-PCR Negative (Negative); RSV RNA, RT-PCR Negative (Negative); SARS-CoV-2 RNA PCR Negative (Negative)
== END 2023-06-20 16:09 | disposition home or self-care (01) ==
PROVIDERS: Emergency Provider Emergency Medicine; PCP Nurse Practitioner
DX: R19.7 Diarrhea, unspecified (principal); Z20.822 Contact with and (suspected) exposure to COVID-19; I10 Essential (primary) hypertension; J45.909 Unspecified asthma, uncomplicated; E03.9 Hypothyroidism, unspecified; Z87.01 Personal history of pneumonia (recurrent); I51.7 Cardiomegaly
CPT/HCPCS: 36415; 71045; 80053; 85025; 87637; 96360; 99283; J7030

== ENCOUNTER 2023-11-28 10:57 | Emergency (ER) | payer MEDICARE, SELFPAY ==
[2023-11-28 11:08] VITALS: BP 121/75; PULSE 75; RESP 16; TEMP 36.8; O2SAT 100
--- NOTE | 2023-11-28 11:08 | ED.GENADULT ---
HPI - General Adult General Chief complaint: Urogenital-Female Stated complaint: Uti Symptoms Source: patient, RN notes reviewed and old records reviewed Mode of arrival: ambulatory Limitations: no limitations History of Present Illness HPI narrative: 6-year-old female presents to [facility] with complaints vaginal itching, urinary frequency, urinary incontinence, and concerns for hemorrhoids. Patient states has had incontinence for a while but feels it is worsening. Patient states has history of hemorrhoids and is noted as blood after wiping. Patient states initially itching occurred last p.m. Related Data Home Medications Medication Instructions Recorded Confirmed metoprolol succinate 25 mg 25 mg PO DAILY 10/01/19 07/29/23 tablet,extended release 24 hr diphenhydramine HCl 25 mg capsule 25 mg PO QHS PRN Sleep 05/21/22 07/29/23 (Benadryl) Allergies Allergy/AdvReac Type Severity Reaction Status Date / Time No Known Allergies Allergy Unknown Verified 07/29/23 13:53 Review of Systems Constitutional: Constitutional: Reports no additional constitutional complaints, Denies body ache(s), Denies chills, Denies fatigue, Denies fever(s) and Denies headache(s) Eyes: Eyes: Reports no additional eye complaints and Denies blurry vision ENT: Reports system reviewed and no additional complaints, except as documented, Denies vertigo, Denies dizziness, Denies ear discharge, Denies otalgia, Denies facial pain, Denies headache(s), Denies nasal congestion, Denies nasal discharge, Denies sinus pain, Denies sinus pressure and Denies sore throat Cardiovascular: Cardiovascular: Reports no additional cardiovascular complaints, Denies chest pain, Denies chest pain at rest, Denies rapid heart rate and Denies dyspnea Respiratory: Respiratory: Reports no additional respiratory complaints, Denies chest congestion, Denies cough, Denies pain on inspiration, Denies pain with cough and Denies dyspnea Gastrointestinal: Gastrointestinal: Denies abdominal pain, Reports hematochezia, Denies diarrhea, Denies nausea and Denies vomiting Genitourinary: Genitourinary: Reports nocturia, Reports urinary incontinence and Reports vaginal pruritus Integumentary/Breasts: Skin/Breast: Denies rash Neurologic: Reports system reviewed and no additional complaints, except as documented, Denies vertigo, Denies dizziness and Denies headache(s) Endocrine: Endocrine: Denies fatigue PMFSH Past Medical History Medical History Adult hypothyroidism Asthma childhood Community acquired pneumonia Family history non-contributory Hypertension Family History Family History Mother Family history of tuberculosis Sibling Patient's brother is in good health Father Family history of congestive heart failure, Onset Age: 91 Patient's father is Other Cerebrovascular accident Diabetes mellitus Family history of malignant neoplasm of male breast Social History Social History Smoking status: Never smoker Alcohol intake: current Alcohol use details: rarely wine Substance use: former Substance use type: marijuana Other substance usage details: in the 1960s Lack of Transportation: No Lack of Food: Never True Current Housing: I Have Housing Concerned About Future Housing: No Difficulty Paying Gas/Electric Bills: No Difficulty Paying for Meds: No Currently Unemployed: No Education: Master's Degree or Higher Difficulty w/ Childcare or Family Care: No Living arrangements: with family Spiritual care concerns: No Comments At the time of my signature, I reviewed and agree with the nursing past medical, surgical, social, and family history. There is no relevant family history pertinent to the patient complaint. Exam Const: General: cooperative,
== END 2023-11-28 11:34 | disposition home or self-care (01) ==
PROVIDERS: Emergency Provider Registered Nurse; PCP Nurse Practitioner
DX: N30.90 Cystitis, unspecified without hematuria (principal); B37.31 Acute candidiasis of vulva and vagina; K64.4 Residual hemorrhoidal skin tags; E03.9 Hypothyroidism, unspecified; I10 Essential (primary) hypertension
CPT/HCPCS: 81003; 87086; 99213; G0463

== ENCOUNTER 2024-01-07 08:44 | Emergency (ER) | payer MEDICARE, SELFPAY ==
--- NOTE | 2024-01-07 08:48 | ED.GENADULT ---
HPI - General Adult General Chief complaint: Upper Respiratory Infection Stated complaint: COUGH/SORE THROAT/FEVER/SWEATING/TIRED Time Seen by Provider: 01/07/24 08:48 Source: patient, RN notes reviewed and old records reviewed Mode of arrival: ambulatory Limitations: no limitations History of Present Illness HPI narrative: 78-[facility] complaint of cough, sore throat for 1 week and fever and fatigue for 2 days. Patient endorses that her grandson has strep throat and is concerned that she may have contracted it from him. Patient denies shortness of breath, chest pain, allergies, pertinent medical history. Patient able to tolerate fluids by mouth. Respirations even and nonlabored. No signs of acute distress. Related Data Home Medications Medication Instructions Recorded Confirmed metoprolol succinate 25 mg 25 mg PO DAILY 10/01/19 01/07/24 tablet,extended release 24 hr diphenhydramine HCl 25 mg capsule 25 mg PO QHS PRN Sleep 05/21/22 01/07/24 (Benadryl) Allergies Allergy/AdvReac Type Severity Reaction Status Date / Time No Known Allergies Allergy Unknown Verified 01/07/24 08:56 Review of Systems Review of Systems: All systems reviewed & are unremarkable except as noted in HPI and below Constitutional: Constitutional: Reports as per HPI, Reports fatigue and Reports fever(s) Eyes: Eyes: Reports no additional eye complaints ENT: Reports as per HPI, Denies headache(s) and Reports sore throat Cardiovascular: Cardiovascular: Reports no additional cardiovascular complaints, Denies chest pain and Denies dyspnea Respiratory: Respiratory: Reports no additional respiratory complaints, Reports cough and Denies dyspnea Musculoskeletal: Musculoskeletal: Reports no additional musculoskeletal complaints Neurologic: Reports system reviewed and no additional complaints, except as documented Psychiatric: Psychiatric: Reports no additional psychiatric complaints [facility] Past Medical History Medical History Adult hypothyroidism Asthma childhood Community acquired pneumonia Family history non-contributory Hypertension Family History Family History Mother Family history of tuberculosis Sibling Patient's brother is in good health Father Family history of congestive heart failure, Onset Age: 91 Patient's father is Other Cerebrovascular accident Diabetes mellitus Family history of malignant neoplasm of male breast Social History Social History Smoking status: Never smoker Alcohol intake: current Alcohol use details: rarely wine Substance use: former Substance use type: marijuana Other substance usage details: in the 1960s Lack of Transportation: No Lack of Food: Never True Current Housing: I Have Housing Concerned About Future Housing: No Difficulty Paying Gas/Electric Bills: No Difficulty Paying for Meds: No Currently Unemployed: No Education: Master's Degree or Higher Difficulty w/ Childcare or Family Care: No Living arrangements: with family Spiritual care concerns: No Comments At the time of my signature, I reviewed and agree with the nursing past medical, surgical, social, and family history. There is no relevant family history pertinent to the patient complaint. Exam Const: General: cooperative, healthy appearing, comfortable, no acute distress, alert, tired appearing and well nourished Nutritional Appearance: well nourished Orientation/consciousness: patient oriented x3 Limitations: no limitations HENMT: Head: normal to inspection Ears: Abnormal EAC present cerumen impaction on the left and erythema on the left and TM abnormal bulging on the left, dull on the left, erythematous on the left and with fluid behind the TM on the left
[2024-01-07 08:53] VITALS: BP 122/77; PULSE 86; RESP 14; TEMP 37.2; O2SAT 95
== END 2024-01-07 09:39 | disposition home or self-care (01) ==
PROVIDERS: Emergency Provider Nurse Practitioner Family; PCP Nurse Practitioner
DX: H66.92 Otitis media, unspecified, left ear (principal); H61.22 Impacted cerumen, left ear; E03.9 Hypothyroidism, unspecified; I10 Essential (primary) hypertension
CPT/HCPCS: 69210; 87081; 87880; 99213; G0463

== ENCOUNTER 2024-03-28 13:45 | Emergency (ER) | payer MEDICARE, SELFPAY ==
--- NOTE | ~2024-03-28 | XR_ITS ---
EXAMINATION: XR chest 2V DATE: 03/28/2024 14:26 INDICATION: Cough. Congestion. TECHNIQUE: Frontal and lateral views of the chest were obtained. COMPARISON: Chest single view 06/20/2023, chest CT 06/02/2023 FINDINGS: There is no pneumonia, pleural effusion, or pneumothorax. Cardiomegaly is noted. IMPRESSION: 1. Cardiomegaly. Reviewed, dictated and finalized at location E. IMPRESSION: 1. Cardiomegaly.
[2024-03-28 13:55] VITALS: BP 122/76; PULSE 83; RESP 16; TEMP 36.3; O2SAT 98
--- NOTE | 2024-03-28 13:57 | ED.URI ---
HPI - URI/Sore Throat General Chief Complaint: Upper Respiratory Infection Stated Complaint: COUGH/NAUSEA/TIRED/RUNNY NOSE Time Seen by Provider: 03/28/24 14:02 Source: patient, RN notes reviewed and old records reviewed Mode of arrival: ambulatory Limitations: no limitations History of Present Illness HPI Narrative: 78-year-old female presents to the [facility] with at least 1 week of cough, chest congestion, nausea, tiredness and runny nose. Has tried [id number] products Denies fevers. Chest tightness with coughing but denies chest pain. Onset (ago): week(s) (1+) Related Data Home Medications Medication Instructions Recorded Confirmed metoprolol succinate 25 mg 25 mg PO DAILY 10/01/19 03/28/24 tablet,extended release 24 hr diphenhydramine HCl 25 mg capsule 25 mg PO QHS PRN Sleep 05/21/22 03/28/24 (Benadryl) Allergies Allergy/AdvReac Type Severity Reaction Status Date / Time No Known Allergies Allergy Unknown Verified 03/28/24 13:50 Review of Systems Review of Systems: All systems reviewed & are unremarkable except as noted in HPI and below Constitutional: Constitutional: Reports as per HPI Eyes: Eyes: Reports no additional eye complaints ENT: Reports as per HPI Cardiovascular: Cardiovascular: Reports no additional cardiovascular complaints, Denies chest pain and Denies dyspnea Respiratory: Respiratory: Reports as per HPI, Reports chest congestion, Reports cough and Denies dyspnea Gastrointestinal: Gastrointestinal: Reports no additional gastrointestinal complaints, Denies abdominal pain, Denies nausea and Denies vomiting Musculoskeletal: Musculoskeletal: Reports no additional musculoskeletal complaints Integumentary/Breasts: Skin/Breast: Reports system reviewed and no additional complaints, except as docu Neurologic: Reports system reviewed and no additional complaints, except as documented Psychiatric: Psychiatric: Reports no additional psychiatric complaints Allergic/Immunologic: Allergic/Immunologic: Reports no additional allergic/immunologic complaints [facility] Past Medical History Medical History Adult hypothyroidism Asthma childhood Community acquired pneumonia Family history non-contributory Hypertension Family History Family History Mother Family history of tuberculosis Sibling Patient's brother is in good health Father Family history of congestive heart failure, Onset Age: 91 Patient's father is Other Cerebrovascular accident Diabetes mellitus Family history of malignant neoplasm of male breast Social History Social History Smoking status: Never smoker Alcohol intake: current Alcohol use details: rarely wine Substance use: former Substance use type: marijuana Other substance usage details: in the 1960s Lack of Transportation: No Lack of Food: Never True Current Housing: I Have Housing Concerned About Future Housing: No Difficulty Paying Gas/Electric Bills: No Difficulty Paying for Meds: No Currently Unemployed: No Education: Master's Degree or Higher Difficulty w/ Childcare or Family Care: No Living arrangements: with family Spiritual care concerns: No Comments At the time of my signature, I reviewed and agree with the nursing past medical, surgical, social, and family history. There is no relevant family history pertinent to the patient complaint. Exam Const: General: cooperative, healthy appearing, comfortable, no acute distress, well developed, alert and well nourished Nutritional Appearance: well nourished Orientation/consciousness: patient oriented x3 Limitations: no limitations HENMT: Head: normal to inspection Ears: hearing grossly normal bilaterally, external ears normal, TM's normal bilaterally, EAC's normal, mastoids normal
== END 2024-03-28 15:02 | disposition home or self-care (01) ==
PROVIDERS: Emergency Provider Nurse Practitioner; PCP Nurse Practitioner
DX: J20.9 Acute bronchitis, unspecified (principal); J32.9 Chronic sinusitis, unspecified; I51.7 Cardiomegaly; E03.9 Hypothyroidism, unspecified; I10 Essential (primary) hypertension
CPT/HCPCS: 71046; 99213; G0463

== ENCOUNTER 2024-04-24 10:28 | Emergency (ER) | payer MEDICARE, SELFPAY ==
[2024-04-24 10:40] VITALS: BP 122/90; PULSE 91; RESP 16; TEMP 36; O2SAT 97
--- NOTE | 2024-04-24 10:45 | ED.URI ---
HPI - URI/Sore Throat General Chief Complaint: Upper Respiratory Infection Stated Complaint: COUGH/FEVER Time Seen by Provider: 04/24/24 10:46 Source: patient, RN notes reviewed and old records reviewed Mode of arrival: ambulatory Limitations: no limitations History of Present Illness HPI Narrative: 79-year-old female presents to the [facility] with complaints of cough and fever. Patient was seen on March 28, treated for sinusitis, bronchitis with Augmentin. States she did get a little better, cough never completely cleared. States the cough got a little bit worse a couple of days ago. Denies any chest pain, shortness of breath, extremity swelling Related Data Home Medications Medication Instructions Recorded Confirmed metoprolol succinate 25 mg 25 mg PO DAILY 10/01/19 04/24/24 tablet,extended release 24 hr diphenhydramine HCl 25 mg capsule 25 mg PO QHS PRN Sleep 05/21/22 04/24/24 (Benadryl) Allergies Allergy/AdvReac Type Severity Reaction Status Date / Time No Known Allergies Allergy Unknown Verified 04/24/24 10:33 Review of Systems Review of Systems: All systems reviewed & are unremarkable except as noted in HPI and below Constitutional: Constitutional: Reports no additional constitutional complaints Eyes: Eyes: Reports no additional eye complaints ENT: Reports system reviewed and no additional complaints, except as documented Cardiovascular: Cardiovascular: Reports no additional cardiovascular complaints, Denies chest pain and Denies dyspnea Respiratory: Respiratory: Reports as per HPI, Denies chest congestion, Reports cough and Denies dyspnea Gastrointestinal: Gastrointestinal: Reports no additional gastrointestinal complaints, Denies abdominal pain, Denies nausea and Denies vomiting Musculoskeletal: Musculoskeletal: Reports no additional musculoskeletal complaints Integumentary/Breasts: Skin/Breast: Reports system reviewed and no additional complaints, except as docu Neurologic: Reports system reviewed and no additional complaints, except as documented Psychiatric: Psychiatric: Reports no additional psychiatric complaints Allergic/Immunologic: Allergic/Immunologic: Reports no additional allergic/immunologic complaints [facility] Past Medical History Medical History Adult hypothyroidism Asthma childhood Community acquired pneumonia Family history non-contributory Hypertension Family History Family History Mother Family history of tuberculosis Sibling Patient's brother is in good health Father Family history of congestive heart failure, Onset Age: 91 Patient's father is Other Cerebrovascular accident Diabetes mellitus Family history of malignant neoplasm of male breast Social History Social History Smoking status: Never smoker Alcohol intake: current Alcohol use details: rarely wine Substance use: former Substance use type: marijuana Other substance usage details: in the 1960s Lack of Transportation: No Lack of Food: Never True Current Housing: I Have Housing Concerned About Future Housing: No Difficulty Paying Gas/Electric Bills: No Difficulty Paying for Meds: No Currently Unemployed: No Education: Master's Degree or Higher Difficulty w/ Childcare or Family Care: No Living arrangements: with family Spiritual care concerns: No Comments At the time of my signature, I reviewed and agree with the nursing past medical, surgical, social, and family history. There is no relevant family history pertinent to the patient complaint. Exam Const: General: cooperative, healthy appearing, comfortable, no acute distress, well developed, alert and well nourished Nutritional Appearance: well nourished and obese Orientation/consciousness: patient oriented x3 Limitatio
[2024-04-24 10:56] LABS: EDINFLUASCREEN Negative (Negative); EDINFLUBSCREEN Negative (Negative)
== END 2024-04-24 11:13 | disposition home or self-care (01) ==
PROVIDERS: Emergency Provider Nurse Practitioner; PCP Nurse Practitioner
DX: R09.82 Postnasal drip (principal); J06.9 Acute upper respiratory infection, unspecified; Z20.822 Contact with and (suspected) exposure to COVID-19; E03.9 Hypothyroidism, unspecified; I10 Essential (primary) hypertension
CPT/HCPCS: 87426; 87804; 99213; G0463

== ENCOUNTER 2024-09-26 08:47 | Emergency (ER) | payer MEDICARE, SELFPAY ==
--- NOTE | ~2024-09-26 | XR_ITS ---
EXAMINATION: XR chest 2V DATE: 09/26/2024 10:28 INDICATION: 7 days of cough and fever TECHNIQUE: PA and lateral views of the chest were obtained. COMPARISON: Chest radiograph dated 03/28/2024 FINDINGS: The lungs remain clear with no focal airspace opacities, pulmonary edema, pleural effusion or pneumot horax. Cardiomegaly with small bilateral paracardial fat pads. Mild thoracic spondylosis. IMPRESSION: 1. Cardiomegaly. No acute cardiopulmonary disease. Reviewed, dictated and finalized at location A. K PROFESSOR
[2024-09-26 09:42] VITALS: BP 138/80; PULSE 90; RESP 16; TEMP 35.9; O2SAT 97
--- NOTE | 2024-09-26 10:13 | ED.GENADULT ---
HPI - General Adult General Chief complaint: Upper Respiratory Infection Stated complaint: COUGH/FEVER Time Seen by Provider: 09/26/24 10:13 Source: patient Mode of arrival: ambulatory Limitations: no limitations History of Present Illness HPI narrative: 79-year-old female patient presents to the [facility] with complaints of flu-like symptoms for the past 7 days. Patient states that she was just running a low-grade fever all week but yesterday her fever increased to 101. Patient states she has been coughing and does feel short of breath at times. Patient states that she has had a lot of fatigue as well. Patient did receive an influenza vaccine this season. Related Data Home Medications ?Medication ?Instructions ?Recorded ?Confirmed ?Last Taken ?Type metoprolol succinate 25 mg 25 mg PO DAILY 10/01/19 05/21/24 02/12/23 08:00 History tablet,extended release 24 hr diphenhydramine HCl 25 mg capsule 25 mg PO QHS PRN Sleep 05/21/22 05/21/24 Unknown History (Benadryl) cetirizine 10 mg tablet (Zyrtec) 10 mg PO DAILY PRN 05/21/24 05/21/24 Unknown History Allergies Allergy/AdvReac Type Severity Reaction Status Date / Time No Known Allergies Allergy Unknown Verified 05/21/24 09:28 Review of Systems Review of Systems: CONSTITUTIONAL: Positive fever, denies chills, or sweats. positive fatigue EYES: Denies visual changes, redness, or discharge. ENT: positive rhinorrhea, congestion, denies sore throat, or otalgia. CARDIOVASCULAR: Denies chest pain, palpitations, or edema. RESPIRATORY: positive cough with dyspnea. GASTROINTESTINAL: Denies abdominal pain, nausea, vomiting, or diarrhea. GENITOURINARY: Denies dysuria or hematuria. SKIN: Denies rash or itching. MUSCULOSKELETAL: Denies back pain, joint pain, or myalgia. NEUROLOGIC: Denies headache, numbness, or weakness. PSYCHIATRIC: Denies anxiety or depression. [facility] Past Medical History Medical History Adult hypothyroidism Asthma childhood Community acquired pneumonia Family history non-contributory Hypertension Family History Family History Mother Family history of tuberculosis Sibling Patient's brother is in good health Father Family history of congestive heart failure, Onset Age: 91 Patient's father is Other Cerebrovascular accident Diabetes mellitus Family history of malignant neoplasm of male breast Social History Social History Smoking status: Never smoker Alcohol intake: current Alcohol use details: rarely wine Substance use: former Substance use type: marijuana Other substance usage details: in the 1960s Lack of Transportation: No Lack of Food: Never True Current Housing: I Have Housing Concerned About Future Housing: No Difficulty Paying Gas/Electric Bills: No Difficulty Paying for Meds: No Currently Unemployed: No Education: Master's Degree or Higher Difficulty w/ Childcare or Family Care: No Living arrangements: with family Spiritual care concerns: No Exam Narrative: GENERAL: Well-appearing, well-nourished, and in no acute distress. HEAD: Normocephalic, atraumatic. EYES: PERRLA and EOMI. ENT: Nares clear, no rhinorrhea or epistaxis. Mucous membranes moist. NECK: Supple. No lymphadenopathy CHEST: Clear to auscultation. slight decreased lung sounds noted to left lower lobe but no obvious crackles noted.No respiratory distress. Patient does have an obvious cough noted during exam HEART: Regular rate and rhythm. No murmur heard. Normal peripheral pulses. ABDOMEN: Soft, nontender, nondistended, normal active bowel sounds. EXTREMITIES: Normal range of motion. No edema. SKIN: Warm, dry, no rash. NEURO: No focal deficits. Alert and oriented x3. Course Course Level of Care: Express Care Visit Reevaluation(s) Reevaluation #1: re-evaluated patient notified her that her x-ray is negative for any pneumonia. Discussed with her that her symptoms are due to influenza A. Discussed with patient that given that her fever really just started yesterday I am kind of concerned that maybe her the influenza symptoms might have just started a couple of days ago and therefore ago to go ahead and prescribe her some Tamiflu given her age. Discussed with her I will also give her some Tessalon Perles to help with the coughing if she has worsening symptoms she needs to follow up with her primary care physician or go to the ER for further evaluation. Patient verbalized understanding denies any other questions or concerns at this time. Date: 09/26/24 Time: 10:49 Vital Signs Vital signs: Vital Signs Temperature 35.9 C L 09/26/24 09:42 Pulse Rate 90 09/26/24 09:42 Respiratory Rate 16 09/26/24 09:42 Blood Pressure 138/80 09/26/24 09:42 Pulse Oximetry 97 09/26/24 09:42 Temperature 35.9 C L 09/26/24 09:42 Pulse Rate 90 09/26/24 09:42 Respiratory Rate 16 09/26/24 09:42 Blood Pressure 138/80 09/26/24 09:42 Pulse Oximetry 97 09/26/24 09:42 vital signs reviewed. The patient has been informed that they may have pre-hypertension or Hypertension based on a BP reading in the department. I recommend that the patient call the primary care provider listed on their discharge instructions or a physician of their choice this week to arrange follow up for further evaluation of possible pre-hypertension or Hypertension Medical Decision Making MDM Narrative Medical decision making narrative: Discussed with patient that she is positive today for influenza A. Discussed with her that since she does continue to have a cough and ongoing fevers that has been going on for 7 days we will go ahead and do a chest x-ray to make sure there is no secondary infection like pneumonia. Patient verbalized understanding denies any other questions or concerns at this time. Differential Diagnosis Differential Diagnosis: Differential diagnosis: Allergic rhinitis, chronic sinusitis, tonsillitis, acute sinusitis, infectious mononucleosis, seasonal influenza, pertussis, diphtheria, meningococcal disease, viral syndrome, viral bronchitis, RSV, COVID-19 Vital Signs Vital Signs: Vital Signs Temperature 35.9 C L 09/26/24 09:42 Pulse Rate 90 09/26/24 09:42 Respiratory Rate 16 09/26/24 09:42 Blood Pressure 138/80 09/26/24 09:42 Pulse Oximetry 97 09/26/24 09:42 Temperature 35.9 C L 09/26/24 09:42 Pulse Rate 90 09/26/24 09:42 Respiratory Rate 16 09/26/24 09:42 Blood Pressure 138/80 09/26/24 09:42 Pulse Oximetry 97 09/26/24 09:42 Vital signs reviewed vital signs reviewed Lab Data Labs: Lab Results 09/26/24 Range/Units 10:39 POC Influenza A Ag Positive (Negative) POC Influenza B Ag Negative (Negative) POC SARS CoV-2 Ag Negative (Negative) Imaging Data Radiologist's impression: ?An ear infection is an infection behind the eardrum. The most frequent kind of ear infection in children is called otitis media. It usually starts with a cold. Ear infections can hurt a lot. Children with ear infections often fuss and cry, pull at their ears, and sleep poorly. Older children will often tell you that their ear hurts. Most children will have at least one ear infection. Fortunately, children usually outgrow them, often about the time they enter grade school. Your doctor may prescribe antibiotics to treat ear infections. Antibiotics aren't always needed, especially in older children who aren't very sick. Your doctor will discuss treatment with you based on your child and his or her symptoms. Regular doses of pain medicine are the best way to reduce fever and help your child feel better. Follow-up care is a suarez part of your child's treatment and safety. Be sure to make and go to all appointments, and call your doctor or nurse call line if your child is having problems. It's also a good idea to know your child's test results and keep a list of the medicines your child takes. How can you care for your child at home? Give your child acetaminophen (Tylenol) or ibuprofen (Advil, Motrin) for fever, pain, or fussiness. Be safe with medicines. Read and follow all instructions on the label. Do not give aspirin to anyone younger than 18. It has been linked to Paige syndrome, a serious illness. If the doctor prescribed antibiotics for your child, give them as directed. Do not stop using them just because your child feels better. Your child needs to take the full course of antibiotics. Place a warm cloth on your child's ear for pain. Encourage rest. Resting will help the body fight the infection. Arrange for quiet play activities. When should you call for help? Call 911 anytime you think your child may need emergency care. For example, call if: Your child is confused, does not know where he or she is, or is extremely sleepy or hard to wake up. Call your doctor or nurse call line now or seek immediate medical care if: Your child seems to be getting much sicker. Your child has a new or higher fever. Your child's ear pain is getting worse. Your child has redness or swelling around or behind the ear. Watch closely for changes in your child's health, and be sure to contact your doctor or nurse call line if: Your child has new or worse discharge from the ear. Your child is not getting better after 2 days (48 hours). Your child has any new symptoms, such as hearing problems after the ear infection has cleared. Critical Care Time Critical Care Time Critical Care Time: No Discharge Plan Discharge Clinical Impression: Influenza A Patient Disposition: Home, Self-Care Condition: Stable Instructions: Antibiotic Form, Influenza (ED) Additional Instructions: Influenza (the flu) is an infection caused by the influenza virus. The flu is easily spread when an infected person coughs, sneezes, or has close contact with others. You may be able to spread the flu to others for 1 week or longer after signs or symptoms appear. DISCHARGE INSTRUCTIONS: Call your local emergency number (911 in the [place]) if: You have trouble breathing, and your lips look purple or blue. You have a seizure. Call your doctor if: You are dizzy, or you are urinating less or not at all. You have a headache with a stiff neck, and you feel tired or confused. You have new pain or pressure in your chest. Your symptoms, such as shortness of breath, vomiting, or diarrhea, get worse. Your symptoms, such as fever and coughing, seem to get better, but then get worse. You have new muscle pain or weakness. You have questions or concerns about your condition or care. Medicines: You may need any of the following: Acetaminophen decreases pain and fever. It is available without a doctor's order. Ask how much to take and how often to take it. Follow directions. Read the labels of all other medicines you are using to see if they also contain acetaminophen, or ask your doctor or pharmacist. Acetaminophen can cause liver damage if not taken correctly. Do not use more than 4 grams (4,000 milligrams) total of acetaminophen in one day. NSAIDs , such as ibuprofen, help decrease swelling, pain, and fever. This medicine is available with or without a doctor's order. NSAIDs can cause stomach bleeding or kidney problems in certain people. If you take blood thinner medicine, always ask your healthcare provider if NSAIDs are safe for you. Always read the medicine label and follow directions. Rest as much as you can to help you recover. Patient Language: Malay Prescriptions: New benzonatate 200 mg capsule 200 mg PO TID PRN (Reason: cough) 10 Days Qty: 30 0RF oseltamivir [Tamiflu] 75 mg capsule 75 mg PO Q12H 5 Days Qty: 10 0RF No Action cetirizine [Zyrtec] 10 mg tablet 10 mg PO DAILY PRN metoprolol succinate 25 mg tablet extended release 24 hr 25 mg PO DAILY diphenhydramine HCl [Benadryl] 25 mg capsule 25 mg PO QHS PRN (Reason: Sleep) hydrocortisone [Anusol-HC] 2.5 % cream with perineal applicator 1 applic RECTAL DAILY PRN (Reason: hemorrhoids) Qty: 30 0RF temazepam 15 mg capsule 15 mg PO HS PRN (Reason: sleep) Qty: 30 0RF Rx Instructions: Take at HS levothyroxine 100 mcg tablet See Rx Instructions .ROUTE .COMPLEX Qty: 90 1RF Dose Instruction: 100 MCG ORALLY DAILY TAKE 1 TABLET BY MOUTH EVERY DAY Rx Instructions: 100 MCG ORALLY DAILY TAKE 1 TABLET BY MOUTH EVERY DAY Follow-up/Referrals: Larry Mathew DO [Primary Care Provider] - Time of Disposition: 10:46
[2024-09-26 10:41] LABS: EDCOVIDSCREEN Negative (Negative); EDINFLUASCREEN Positive (Negative); EDINFLUBSCREEN Negative (Negative)
== END 2024-09-26 10:53 | disposition home or self-care (01) ==
PROVIDERS: Emergency Provider Nurse Practitioner Family; PCP Internal Medicine
DX: J10.1 Influenza due to other identified influenza virus with other respiratory manifestations (principal); Z20.822 Contact with and (suspected) exposure to COVID-19; E03.9 Hypothyroidism, unspecified; I10 Essential (primary) hypertension
CPT/HCPCS: 71046; 87426; 87804; 99213; G0463

== ENCOUNTER 2024-11-25 16:08 | Emergency (ER) | payer MEDICARE, SELFPAY ==
[2024-11-25 16:17] VITALS: BP 127/79; PULSE 67; RESP 16; TEMP 36.2; O2SAT 98
--- NOTE | 2024-11-25 16:22 | ED_ITS ---
HPI - URI/Sore Throat General Chief Complaint: Upper Respiratory Infection Stated Complaint: COUGH/TIRED Time Seen by Provider: 11/25/24 16:24 Source: patient, RN notes reviewed and old records reviewed Mode of arrival: ambulatory Limitations: no limitations History of Present Illness HPI Narrative: 79-year-old female presents to the [facility] with complaints of 3 weeks of cough, sinus congestion most days is using a nasal spray that she was prescribed at a allergy clinic. States that most days she does take Zyrtec. Related Data Home Medications ?Medication ?Instructions ?Recorded ?Confirmed ?Last Taken ?Type metoprolol succinate 25 mg 25 mg PO DAILY 10/01/19 10/01/24 02/12/23 08:00 History tablet,extended release 24 hr diphenhydramine HCl 25 mg capsule 25 mg PO QHS PRN Sleep 05/21/22 10/01/24 Unknown History (Benadryl) cetirizine 10 mg tablet (Zyrtec) 10 mg PO DAILY PRN 05/21/24 10/01/24 Unknown History Allergies Allergy/AdvReac Type Severity Reaction Status Date / Time No Known Allergies Allergy Unknown Verified 11/25/24 16:20 Review of Systems Review of Systems: All systems reviewed & are unremarkable except as noted in HPI and below Constitutional: Constitutional: Reports no additional constitutional complaints ENT: Reports as per HPI Cardiovascular: Cardiovascular: Reports no additional cardiovascular complaints, Denies chest pain and Denies dyspnea Respiratory: Respiratory: Reports as per HPI, Reports chest congestion, Reports cough and Denies dyspnea Musculoskeletal: Musculoskeletal: Reports no additional musculoskeletal complaints Integumentary/Breasts: Skin/Breast: Reports system reviewed and no additional complaints, except as docu PMFSH Past Medical History Medical History Adult hypothyroidism Asthma childhood Community acquired pneumonia Family history non-contributory Hypertension Family History Family History Mother Family history of tuberculosis Sibling Patient's brother is in good health Father Family history of congestive heart failure, Onset Age: 91 Patient's father is Other Cerebrovascular accident Diabetes mellitus Family history of malignant neoplasm of male breast Social History Social History Smoking status: Never smoker Alcohol intake: current Alcohol use details: rarely wine Substance use: former Substance use type: marijuana Other substance usage details: in the 1960s Lack of Transportation: No Lack of Food: Never True Current Housing: I Have Housing Concerned About Future Housing: No Difficulty Paying Gas/Electric Bills: No Difficulty Paying for Meds: No Currently Unemployed: No Education: Master's Degree or Higher Difficulty w/ Childcare or Family Care: No Living arrangements: with family Spiritual care concerns: No Comments At the time of my signature, I reviewed and agree with the nursing past medical, surgical, social, and family history. There is no relevant family history pertinent to the patient complaint. Exam Const: General: cooperative, healthy appearing, comfortable, no acute distress, well developed, alert and well nourished Nutritional Appearance: well nourished Orientation/consciousness: patient oriented x3 Limitations: no limitations HENMT: Head: normal to inspection Ears: hearing grossly normal bilaterally, external ears normal, TM's normal bilaterally, EAC's normal, mastoids normal and no periauricular adenopathy Mouth: Yes Normal oral and palatal mucosa present, Yes lip normal, Yes tongue normal and Yes moist mucous membranes Throat: posterior oropharynx normal, uvula midline, postnasal drainage and no uvular edema Eyes: General: appearance normal, both eyes and all related structures Alignment and Position: alignment normal Neck: Neck: normal visual inspection, full ROM, no lymphadenopathy and no meningeal signs Chest: Chest palpation & inspection: normal inspection of the chest Resp: Effort & Inspection: normal respiratory effort and able to speak in complete sentences Auscultation: clear to auscultation bilaterally, no crackles, no rales, no rhonchi and no wheezes Cardio: Rate: regular rate Skin: General skin exam: normal color and no rashes or lesions noted Neuro: General: patient oriented x3, gait normal, moves all extremities and no meningeal signs Cognition (Neuro): normal cognition Speech: normal speech Gait exam (Neuro): Normal gait present Extrem: General: normal to inspection, full ROM, capillary refill normal and normal gait Psych: Appearance: grossly normal and well kempt Mental Status: mental status grossly normal Speech and movement: Normal speech and movement present and Clear speech present Affect: normal affect Attitude: cooperative Course Course Level of Care: Express Care Visit Vital Signs Vital signs: Vital Signs Oxygen Delivery Room Air 11/25/24 16:16 Temperature 97.1 F L 11/25/24 16:17 Pulse Rate 67 11/25/24 16:17 Respiratory Rate 16 11/25/24 16:17 Blood Pressure 127/79 11/25/24 16:17 Pulse Oximetry 98 11/25/24 16:17 Oxygen Delivery Room Air 11/25/24 16:16 Reviewed MDM - URI/Sore Throat MDM Narrative Medical decision making narrative: patient sitting in exam room. Nontoxic, vitals stable. Patient in no acute distress. Patient presents with 2 week history of URI symptoms. No acute findings other than postnasal drainage. Due to patient's age and length of symptoms will cover with an antibiotic for possible secondary infection otherwise, discussed [id number] products. Patient appropriate for outpatient treatment with close follow-up Discharge instructions reviewed with patient, as well as provided in writing per nursing staff. The instructions also include specific and strict return/GO TO THE ER as well as f/u information. All questions have been answered, and the patient deny any further questions with discharge and discharge plan. Some parts of this dictation were generated by voice recognition software and may contain typographical and/or grammatical inaccuracies. Differential Diagnosis Differential diagnosis: Likely upper respiratory infection, otitis media, sinusitis, viral infection, bronchitis and influenza Critical Care Time Critical Care Time Critical Care Time: No Discharge Plan Discharge Clinical Impression: Sinusitis, PND (post-nasal drip) Cough Qualifiers: Cough type: acute Qualified Code(s): R05.1 - Acute cough Patient Disposition: Home Condition: Stable Instructions: Antibiotic Form, Sinusitis (ED), Postnasal Drip (DC) Additional Instructions: It is very important to treat your symptoms. Drink plenty of water, Gatorade, Pedialyte, ice pops or Jell-O. -Alternate Tylenol and Motrin per package directions for fever or pain. You can alternate every 4 hours -Antihistamine medication such as Zyrtec/Claritin/Elizabeth during the day can help improve symptoms. -doing daily nasal irrigations can help relieve pressure your sinuses. Things like a Neti pot -Use nasal sprays as prescribed by the allergy clinic. It is important to use them daily -You can also use Mucinex. Be sure to drink plenty of water with this medication at least 8 ounces with every dose and it is important to drink 8 to 10 glasses of water per day. Water is a natural decongestant -Eat and drink things that are easy to swallow, like tea or soup, or popsicles. -Oral rinses such as: Salt water gargles and/or may use topical anesthetic (eg. Chloraseptic spray) or lozenges to relieve dryness or throat pain). -Frequent hand washing or hand metal shaping machine operator is one of the best ways to prevent spread of infection. -Using a vaporizer or humidifier at night will also help thin secretions and help with coughing up phlegm. -Follow up with primary care provider in 7-10 days if condition is not improving - For new or worsening symptoms go directly to the nearest ER Patient Language: Luxembourgish Prescriptions: New doxycycline monohydrate 100 mg tablet 100 mg PO BID Qty: 14 0RF No Action benzonatate 200 mg capsule 200 mg PO TID PRN (Reason: cough) 10 Days Qty: 30 0RF oseltamivir [Tamiflu] 75 mg capsule 75 mg PO Q12H 5 Days Qty: 10 0RF cetirizine [Zyrtec] 10 mg tablet 10 mg PO DAILY PRN temazepam 15 mg capsule 15 mg PO HS PRN (Reason: sleep) Qty: 30 0RF Rx Instructions: Take at HS hydrocortisone [Anusol-HC] 2.5 % cream with perineal applicator 1 applic RECTAL DAILY PRN (Reason: hemorrhoids) Qty: 30 2RF metoprolol succinate 25 mg tablet extended release 24 hr 25 mg PO DAILY diphenhydramine HCl [Benadryl] 25 mg capsule 25 mg PO QHS PRN (Reason: Sleep) levothyroxine 100 mcg tablet See Rx Instructions .ROUTE .COMPLEX Qty: 90 1RF Dose Instruction: 100 MCG ORALLY DAILY TAKE 1 TABLET BY MOUTH EVERY DAY Rx Instructions: 100 MCG ORALLY DAILY TAKE 1 TABLET BY MOUTH EVERY DAY Follow-up/Referrals: Larry Mathew DO [Primary Care Provider] - 2 Weeks ([facility] care follow up) Time of Disposition: 16:46
== END 2024-11-25 16:52 | disposition home or self-care (01) ==
PROVIDERS: Emergency Provider Nurse Practitioner; PCP Internal Medicine
DX: J32.9 Chronic sinusitis, unspecified (principal); R09.82 Postnasal drip; R05.1 Acute cough; E03.9 Hypothyroidism, unspecified; I10 Essential (primary) hypertension
CPT/HCPCS: 99213; G0463

== ENCOUNTER 2024-12-08 09:17 | Emergency (ER) | payer MEDICARE, SELFPAY ==
--- NOTE | 2024-12-08 09:18 | ED.DENTAL ---
HPI - Dental/Oral General Chief complaint: Skin/Abscess/Foreign Body Stated complaint: FACIAL SWELLING Time Seen by Provider: 12/08/24 09:18 Source: patient Mode of arrival: ambulatory Limitations: no limitations History of Present Illness HPI Narrative: Angela is an 79-year-old female patient presenting to the clinic today with complaints of facial swelling, redness, and itching since last night. States that the swelling has gotten worse since last night. Denies any fevers, chills, or body aches. States she generally does not feel well. Was out in the yard working yesterday but had not been bite by anything that she knows of or has come in contact with any irritants. Denies any throat swelling, shortness of breath, or tongue swelling. Denies any dental pain. Related Data Home Medications ?Medication ?Instructions ?Recorded ?Confirmed ?Last Taken ?Type metoprolol succinate 25 mg 25 mg PO DAILY 10/01/19 10/01/24 02/12/23 08:00 History tablet,extended release 24 hr diphenhydramine HCl 25 mg capsule 25 mg PO QHS PRN Sleep 05/21/22 10/01/24 Unknown History (Benadryl) cetirizine 10 mg tablet (Zyrtec) 10 mg PO DAILY PRN 05/21/24 10/01/24 Unknown History azelastine 137 mcg (0.1 %) nasal intranasal 12/08/24 Unknown History spray Allergies Allergy/AdvReac Type Severity Reaction Status Date / Time No Known Allergies Allergy Unknown Verified 12/08/24 09:32 Review of Systems Review of Systems: Pertinent positives per HPI. Patient denies any fever, chills, rash, headache, visual changes, dizziness, cough, shortness of breath, chest pain, palpitations, nausea, vomiting, diarrhea, constipation, abdominal pain, or any urinary issues. [facility] Past Medical History Medical History Hypertension Family history non-contributory Community acquired pneumonia Asthma childhood Adult hypothyroidism Family History Family History Mother Family history of tuberculosis Sibling Patient's brother is in good health Father Family history of congestive heart failure, Onset Age: 91 Patient's father is Other Cerebrovascular accident Diabetes mellitus Family history of malignant neoplasm of male breast Social History Social History Smoking status: Never smoker Alcohol intake: current Alcohol use details: rarely wine Substance use: former Substance use type: marijuana Other substance usage details: in the 1960s Lack of Transportation: No Lack of Food: Never True Current Housing: I Have Housing Concerned About Future Housing: No Difficulty Paying Gas/Electric Bills: No Difficulty Paying for Meds: No Currently Unemployed: No Education: Master's Degree or Higher Difficulty w/ Childcare or Family Care: No Living arrangements: with family Spiritual care concerns: No Comments At the time of my signature, I reviewed and agree with the nursing past medical, surgical, social, and family history. There is no relevant family history pertinent to the patient complaint. Exam Narrative: General: Well-developed, well nourished, in no apparent distress Head: Normocephalic, atraumatic, right lower jaw facial swelling with redness without palpable abscess, mild erythema, nontender to palpation, redness to the right forehead, right cheek just below the right eye, and the right jaw Eyes: Pupils equally round and reactive to light bilaterally, EOM intact, sclera and conjunctive clear, no discharge, lids normal Ears: TMs intact and clear, ear canals clear, no drainage, grossly hearing normal. Nose: Nares patent, no discharge, no inflammation, no sinus tenderness. Mouth: Oral pharynx without lesions or masses, good dentition, MMM. Neck: Supple, trachea midline, no enlargement of anterior or posterior cervical nodes, no thyroid masses or goiter palpable. Cardio: Regular rate and rhythm, s1 and s2 normal, no murmur appreciated. Resp: Clear to auscultation bilaterally, no rhonchi, rales, wheezing or rubs Course Course Emergency Course: Portions of this record may have been created with voice recognition software. Level of Care: Express Care Visit Vital Signs Vital signs: Vital signs reviewed MDM - Dental/Oral MDM Narrative Medical decision making narrative: At the time of visit patient is resting comfortably on the exam table. Patient appears to be nontoxic. Plan: Will cover patient for possible allergy reaction verses early cellulitis. Place her on short course of prednisone and Augmentin. Will have her follow-up with her PCP in 2-3 days for recheck. Supportive measures were discussed with the patient and they voiced understanding discharge instructions and agrees to treatment plan. Return precautions reviewed Differential Diagnosis Differential diagnosis: Likely gingival abscess, toothache, dental abscess and other (Allergic reaction, cellulitis, acute rash) Discharge Plan Discharge Clinical Impression: Right facial swelling Patient Disposition: Home Condition: Stable Instructions: Antibiotic Form, Acute Rash (ED) Additional Instructions: Take Augmentin and prednisone as prescribed May apply cool compress to the affected area to help alleviate swelling and itchiness Avoid scratching and this causes rash to spread May take benadryl 25-50mg every 6 hours as needed for itching. Follow up with your PCP in 3-5 days if symptoms persist or sooner if they worsen Go to the Emergency Room if symptoms worsen- fever, rash spreading with treatment, increase in pain, increase in swelling, shortness of breath, tongue swelling, drooling, or chest pain Patient Language: Korean Prescriptions: New amoxicillin-pot clavulanate 875-125 mg tablet 1 tablet PO Q12H 7 Days Qty: 14 0RF prednisone 20 mg tablet 40 mg PO DAILY 5 Days Qty: 10 0RF No Action azelastine 137 mcg (0.1 %) spray,non-aerosol INTRANASAL cetirizine [Zyrtec] 10 mg tablet 10 mg PO DAILY PRN temazepam 15 mg capsule 15 mg PO HS PRN (Reason: sleep) Qty: 30 0RF Rx Instructions: Take at HS metoprolol succinate 25 mg tablet extended release 24 hr 25 mg PO DAILY diphenhydramine HCl [Benadryl] 25 mg capsule 25 mg PO QHS PRN (Reason: Sleep) levothyroxine 100 mcg tablet See Rx Instructions .ROUTE .COMPLEX Qty: 90 1RF Dose Instruction: 100 MCG ORALLY DAILY TAKE 1 TABLET BY MOUTH EVERY DAY Rx Instructions: 100 MCG ORALLY DAILY TAKE 1 TABLET BY MOUTH EVERY DAY Follow-up/Referrals: Larry Mathew DO [Primary Care Provider] - Time of Disposition: 09:33 Quality NIHSS Nursing Documentation ED NIHSS nursing documentation: reviewed/agree
[2024-12-08 09:28] VITALS: BP 110/74; PULSE 81; RESP 16; TEMP 36.6; O2SAT 97
== END 2024-12-08 09:36 | disposition home or self-care (01) ==
PROVIDERS: Emergency Provider Nurse Practitioner Family; PCP Internal Medicine
DX: R22.0 Localized swelling, mass and lump, head (principal); I10 Essential (primary) hypertension; E03.9 Hypothyroidism, unspecified
CPT/HCPCS: 99213; G0463

== ENCOUNTER 2024-12-08 18:26 | Emergency (ER) | payer MEDICARE, SELFPAY ==
--- OUTSIDE RECORDS SUMMARY | 2024-12-08 18:28 | XMS_ITS ---
Author Organization [facility] ([address]) Address [address] [place] [address] Care Team Providers Care Meter Maintenance Person Name Role Phone Raul Sethi Primary Care Provider Connie Webb Unavailable [phone] Edi Bean [phone] REASON FOR VISIT SCIT - Traditional Schedule Allergy Immunotherapy (Week ) Encounters Encounter Location Date Provider Diagnosis [facility] [address] [place] [address] 12/08/2024 Edi Bean Allergic rhinitis du e to pollen J30.1 ; Other allergic rhinitis J30.89 ; Allergic rhinitis due to animal (cat) (dog) hair and dander J30.81 and Other chronic allergic conjunctivitis H10.45 Assessments Encounter Date Diagnosis (ICD Code) Assessment Notes Treatment Notes Treatment Clinical Notes Section Notes 12/08/2024 Allergic rhinitis due to pollen (ICD-10 - J30.1) 12/08/2024 Other allergic rhinitis (ICD-10 - J30.89) 12/08/2024 Allergic rhinitis due to animal (cat) (dog) hair and dander (ICD-10 - J30.81) 12/08/2024 Other chronic allergic conjunctivitis (ICD-10 - H10.45) Plan Of Treatment Next Appt Details Follow Up: As scheduled, Kellie son: Provider Name:Eid Bean , 12/15/2024 09:50:00 AM, [address], [place], [address], Provider Name:Edi Bean , 12/22/2024 09:50:00 AM, [address] [facility] [address], [place], [address], Progress Notes * Angela MUNOZDOB: [birth year] (79 yo F)Acc No.[id number]:12/08/2024 SCIT-Aeroallergen Patient: Angela BARBOUR Provider: Jose Bean MD :1945 A ge:79 Y S ex:Female Date:12/08/2024 Address:[facility] [address], [facility] Pcp:Raul Sethi Subjective: * Chief Complaints: * 1 . SCIT - Traditional Schedule Allergy Immunotherapy (Week ). * HPI: * Introduction: The patient is here for scheduled immunotherapy. Please see the attached specialty form regarding the specifics of the administration of these vaccines. As per our protocol, they must undergo a screening health questionnaire (medication changes, reaction(s) to last immunotherapy dose(s), current health status, ACT (if appropriate), self-injectable epinephrine on patient(?) and peak flow (if appropriate)). Also, the patient must wait in our office for 30 minutes after receiving the vaccine(s). Furthermore, every patient must have an epinephrine pen (self-injectable) with them at the time of administration--and carry if for the following 1.5 hours after they leave our office. The patient must also have taken their antihistamine the day of the injection, preferably 2 hours prior. The consent form for SCIT (subcutaneous immunotherapy) is on file. * Medical History: Objective: * Vitals: Assessment: * Assessment: 1. A llergic rhinitis due to pollen - J30.1 (Primary) 2 . O ther allergic rhinitis - J30.89 3 . A llergic rhinitis due to animal (cat) (dog) hair and dander - J30.81 4 . O ther chronic allergic conjunctivitis - H10.45 Plan: * Treatment: * Preventive Medicine: Counseling: E xercise A void heavy lifting on days of allergy immunotherapy. M edication instruction: I njectable epinephrine education and instruction w/ discussion of signs and symptoms of anaphylaxis and reasons to seek urgent or emergent care, Watch for side effects of prescribed medications. E ducation: A ble to return demonstration of self-injectable epinephrine. * Follow Up: A s scheduled * Billing Information: * Visit Code: * Procedure Codes: 86986 IMMUNOTHERAPY INJECTIONS. * Electronic signature of Clau Bean MD, FAAAAI on 12/08/2024 at 06:28 PM CDT Sign off status: Pending * Provider: Jose Bean MD Date: 12/08/2024 Generated for Aneesh barton/Lalit/Malika on: 12/08/2024 06:28 PM CDT History and Physical Notes * HPI (History of Present Illness) Category Sub-Category Detail Notes Category Not es *Introduction The patient is here for scheduled immunotherapy. Please see the attached specialty form regarding the specifics of the administration of these vaccines. As per our protocol, they must undergo a screening health questionnaire (medication changes, reaction(s) to last immunotherapy dose(s), current health status, ACT (if appropriate), self-injectable epinephrine on patient(?) and peak flow (if appropriate)). Also, the patient must wait in our office for 30 minutes after receiving the vaccine(s). Furthermore, every patient must have an epinephrine pen (self-injectable) with them at the time of administration--and carry if for the following 1.5 hours after they leave our office. The patient must also have taken their antihistamine the day of the injection, preferably 2 hours prior. The consent form for SCIT (subcutaneous immunotherapy) is on file.
--- OUTSIDE RECORDS SUMMARY | 2024-12-08 18:29 | XMS_ITS | Referral Summary ---
Author Organization [facility] Address [address] [place] [address] Care Team Providers Care Hand Stoner Name Role Phone Larry Mathew DO Primary Care Provider [phone] Allergies No known active allergies Medications multivitamin tablet tablet take 1 tablet by oral route every day with food 0 0 5 Active levothyroxine (SYNTHROID, LEVOTHROID) 100 mcg tablet Take 1 tablet (100 mcg total) by mouth daily Active temazepam (RESTORIL) 15 mg capsule TAKE 1 CAPSULE BY MOUTH EVERY DAY NEEDED FOR SLEEP AT BEDTIME 1 Active fluticasone propionate (FLONASE) 50 mcg/actuation nasal spray Administer 1 spray into each nostril as needed Active calcium carbonate-vitam in D3 1,250 mg (500 mg elemental)-125 unit per tablet Take 1 tablet by mouth daily Active azelastine (ASTELIN) 137 mcg (0.1 %) nasal spray every 12 hours Act efrain cetirizine (ZyrTEC) 10 mg tablet daily Active metoprolol XL (TOPROL-XL) 25 mg extended release tablet TAKE 1 TABLET (25 MG TOTAL) BY MOUTH DAILY. 90 tablet 1 5 09/13/19 26 Active Active Problems Problem Noted Date Diagnosed Date Premature atrial contractions 06/26/2022 Pulmonary HTN 05/22/2021 RODRIGUEZ (dyspnea on exertion) 01/21/2018 NSVT (nonsustained ventricular tachycardia) 01/2018 Palpitations 12/09/2017 Lipid screening 06/04/2017 History of artificial joint 12/02/2016 Chronic fatigue syndrome 05/21/2016 Overview (11/22/2016): Chronic fatigue Hypothyroidism 07/24/2015 Overview (11/22/2016): Hypothyroidism, unspecified type HILARIO on CPAP 07/24/2015 Overview (11/22/2016): HILARIO on CPAP Viral upper respiratory tract infection 07/24/20 15 Overview (11/22/2016): Viral upper respiratory tract infection Mitral valve prolapse 07/24/2015 Overview (11/22/2016): Mitral valve prolapse, nonrheumatic Non-rheumatic mitral regurgitation 07/24/2015 Overview (11/22/2016): Non-rheumatic mitral regurgitation Nonrheumatic aortic valve regurgitation 07/24/20 15 Overview (11/22/2016): Aortic valve regurgitation, nonrheumatic Fatigue 03/13/2015 Overview (11/22/2016): Fatigue Snoring 03/13/2015 Overview (11/22/2016): Snoring PVC (premature ventricular contraction) 03/13/20 15 Overview (11/22/2016): Symptomatic PVCs Social History Tobacco Use Types Packs/Day Years Used Date Smoking Tobacco: Never Smokeless Tobacco: Never Tobacco Cessation:Counseling Given: Not Answered Alcohol Use Standard Drinks/Week Comments Yes 0 (1 standard drink = 0.6 oz pur e alcohol) Comments Unknown Sex and Gender Information Value Date Recorded Sex Assigned at Not on file Legal Sex Female 8:46 PM WILDERNESS GUIDE Gender Identity Female 08/01/2020 10:14 AM WILDERNESS GUIDE Sexual Orientation Not on file Last Filed Vital Signs Vital Sign Reading Time Taken Comments Blood Pressure 124/68 07/08/2024 10:35 AM WILDERNESS GUIDE Pulse 73 07/08/2024 10:35 AM WILDERNESS GUIDE Temperature - - Respiratory Rate - - Oxygen Saturation 97% 07/08/2024 10:35 AM WILDERNESS GUIDE Inhaled Oxygen Concentration - - Weight 87.1 kg (192 lb) 07/08/2024 10:35 AM WILDERNESS GUIDE Height 162.6 cm (5' 4 ) 07/08/2024 10:35 AM WILDERNESS GUIDE Body Mass Index 32.96 07/08/2024 10:35 AM WILDERNESS GUIDE Plan of Treatment Not on file Insurance MEDICARE [employer] MEDICARE [employer] MEDICARE [employer] MEDICARE Care Teams Hand Stoner Relationship Specialty Start Date End Date Larry Mathew DO [address] [facility] [address] [place], [place] [id number] PCP - General Internal Medicine 04/01/24
--- OUTSIDE RECORDS SUMMARY | 2024-12-08 18:29 | XMS_ITS ---
Author Organization [facility] ([address]) Address [address] [place] [address] Care Team Providers Care Vat Overhauler Name Role Phone Raul Sethi Primary Care Provider Connie Webb Unavailable [phone] REASON FOR VISIT Reaction Encounters Encounter Location Date Provider Diagnosis [address] [address] 12/08/2024 Connie Nolasco Plan Of Treatment Next Appt Details Provider Name:Edi Bean , 12/15/2024 09:50:00 AM, [address], [address], Provider Name:Edi Bean , 12/22/2024 09:50:00 AM, [address], [address], Progress Notes * JEREL AngelaDOB: [birth year] (79 yo F)Acc No.[id number]:12/08/2024 Patient: Angela BARBOUR :1945 A ge:79 Y S ex:Female Address[address] [place], [address] * true * Date: Generated for Printi ng/Faxing/eTransmitting on: 0 12/08/2024 06:28 PM CDT
--- OUTSIDE RECORDS SUMMARY | 2024-12-08 18:29 | XMS_ITS ---
Author Organization [facility] [place] ([address]) Address [address] [place] [address] Care Team Providers Care Nurse Informaticist Name Role Phone Raul Sethi Primary Care Provider Connie Webb Unavailable [phone] Edi Bean Unavailable [phone] REASON FOR VISIT [facility] - Traditional Schedule Allergy Immunotherapy (Week ) Medications Medication SIG (Take, Route, Frequency, Duration) Notes Start Date End Date Status Melatonin 5 MG/15ML 15 mL at bedtime as needed Orally As needed 06/10/2024 Active Levothyroxine Sodium 100 MCG 1 tablet in the morning on an empty stomach Orally Once a day Active EPINEPHrine 0.3 MG/0.3ML as directed Inj ection as needed for 30 days 07/08/2024 Active Azelastine HCl 137 MCG/SPRAY SPRAY 2 SPRAYS INTO EACH NOSTRIL TWICE A DAY for 90 Active Doxylamine Succinate (Sleep) 25 MG 1 tablet at bedtime as needed Orally Once a day Not-Taking Metoprolol Succinate ER 25 MG 1 tablet Orally Once a day Active Nasal Washes N/A as directed intranasally Active Temazepam 15 MG 58 tab(s) Orally Onc e a day Active Azelastine HCl 137 MCG/SPRAY 2 sprays in each nostril Nasally Twice a day for 30 days Active Fluticasone Propionate 50 MCG/ACT 2 sprays in each nostril Nasally once a day for 30 days As needed Active Cetirizine HCl 10 MG 1 tablet Orally Onc e a day for 30 days Active Encounters Encounter Location Date Provider Diagnosis [facility] [address] [place] [address] 12/01/2024 Edi Bean Allergic rhinitis du e to pollen J30.1 ; Other allergic rhinitis J30.89 ; Allergic rhinitis due to animal (cat) (dog) hair and dander J30.81 and Other chronic allergic conjunctivitis H10.45 Assessments Encounter Date Diagnosis (ICD Code) Assessment Notes Treatment Notes Treatment Clinical Notes Section Notes 12/01/2024 Allergic rhinitis due to pollen (ICD-10 - J30.1) 12/01/2024 Other allergic rhinitis (ICD-10 - J30.89) 12/01/2024 Allergic rhinitis due to animal (cat) (dog) hair and dander (ICD-10 - J30.81) 12/01/2024 Other chronic allergic conjunctivitis (ICD-10 - H10.45) Plan Of Treatment Next Appt Details Follow Up: As scheduled, Kellie son: Provider Name:Edi H. Vikas , 12/15/2024 09:50:00 AM, [address], [address], [address], Provider Name:Edi HBrooks Bean , 12/22/2024 09:50:00 AM, [address], [address] [place] [address], [address], Progress Notes * Angela MUNOZDOB: [birth year] (79 yo F)Acc No.[id number]:12/01/2024 [facility] Patient: Angela BARBOUR Provider: Jose Bean MD :1945 A ge:79 Y S ex:Female Date:12/01/2024 [facility] [facility] Pcp:Raul Sethi Subjective: * Chief Complaints: * S [facility] - Traditional Schedule Allergy Immunotherapy (Week ) * HPI: * Introduction: The patient is [...] immunotherapy) is on file. * Medical History: * Surgical History: * Hospitalization/Major Diagno stic Procedure: * Medications: T akingCetirizine HCl 10 MG Tablet 1 tablet Orally Once a day Fluticasone Propionate 50 MCG/ACT Suspension 2 sprays in each nostril Nasally once a day As neededAzelastine HCl 137 MCG/SPRAY Solution 2 sprays in each nostril Nasally Twice a day Nasal Washes N/A 1 quart of sterilized tap water or distilled water, 1 tsp NaCl, 1 pinch of baking soda as directed intranasally Metoprolol Succinate ER 25 MG Tablet Extended Release 24 Hour 1 tablet Orally Once a day Temazepam 15 MG Capsule 58 tab(s) Orally Once a day Levothyroxine Sodium 100 MCG Tablet 1 tablet in the morning on an empty stomach Orally Once a day Melatonin 5 MG/15ML Liquid 15 mL at bedtime as needed Orally As neededAzelastine HCl 137 MCG/SPRAY Solution SPRAY 2 SPRAYS INTO EACH NOSTRIL TWICE A DAY EPINEPHrine 0.3 MG/0.3ML Solution Auto-injector as directed Injection as needed Taking Cetirizine HCl 10 MG Tablet 1 tablet Orally Once a day Taking Fluticasone Propionate 50 MCG/ACT Suspension 2 sprays in each nostril Nasally once a day As neededTaking Azelastine HCl 137 MCG/SPRAY Solution 2 sprays in each nostril Nasally Twice a day Taking Nasal Washes N/A 1 quart of sterilized tap water or distilled water, 1 tsp NaCl, 1 pinch of baking soda as directed intranasally Taking Metoprolol Succinate ER 25 MG Tablet Extended Release 24 Hour 1 tablet Orally Once a day Taking Temazepam 15 MG Capsule 58 tab(s) Orally Once a day Taking Levothyroxine Sodium 100 MCG Tablet 1 tablet in the morning on an empty stomach Orally Once a day Taking Melatonin 5 MG/15ML Liquid 15 mL at bedtime as needed Orally As neededTaking Azelastine HCl 137 MCG/SPRAY Solution SPRAY 2 SPRAYS INTO EACH NOSTRIL TWICE A DAY Taking EPINEPHrine 0.3 MG/0.3ML Solution Auto-injector as directed Injection as needed Not-Taking/PRNDoxylamine Succinate (Sleep) 25 MG Tablet 1 tablet at bedtime as needed Orally Once a day Not-Taking/PRN Doxylamine Succinate (Sleep) 25 MG Tablet 1 tablet at bedtime as needed Orally Once a day Objective: * Vitals: Assessment: * Assessment: 1. A llergic rhinitis due to pollen - J30.1 (Primary) 2 . O ther allergic rhinitis - J30.89 3 . A llergic rhinitis due to animal (cat) (dog) hair and dander - J30.81 4 . O ther chronic allergic conjunctivitis - H10.45 Plan: * Treatment: * Procedure Codes: 9 5117 IMMUNOTHERAPY INJECTIONS * Preventive Medicine: Counseling: E xercise A [...] Information: * Visit Code: * Procedure Codes: 44402 IMMUNOTHERAPY INJECTIONS. * Sign off status: Completed true * Provider: Jose Bean MD Date: 0 12/01/2024 Generated for Aneesh barton/Lalit/Marleneitting on: 0 12/08/2024 06:29 PM CDT History and Physical Notes * [...]
--- OUTSIDE RECORDS SUMMARY | 2024-12-08 18:29 | XMS_ITS | Patient Health Record ---
Author Organization [facility] ([address]) Address [address] [place] [address] Care Team Providers Care Coal Weigher Name Role Phone Raul Sethi Primary Care Provider Connie Webb Unavailable [phone] Edi Bean Unavailable [phone] Allergies No Known Allergies Results Component Value Reference Range Notes -Respiratory Allergens w/Tot al IgE Area 8 Reviewed date:06/17/2024 07:46:00 AM Interpretation:Abnormal Performing Lab:[facility], [address] [place] [id number], Phone - [phone], Director - Nasim Notes/Report: Class Description Levels of Specific IgE Class Description of Class ----- < 0.10 0 Negative 0.10 - 0.31 0/I Equivocal/Low 0.32 - 0.55 I Low 0.56 - 1.40 II Moderate 1.41 - 3.90 III High 3.91 - 19.00 IV Very High 19.01 - 100.00 V Very High >100.00 Very High Immunoglobulin E, Total 83 6-495 IU/mL T041-LlS D pteronyssinus <0.10 Class 0 kU/L Y984-OsU D farinae 0.11 Class 0/I kU/L Q805-WiO Cat Dander <0.10 Class 0 kU/L U568-StB Dog Dander <0.10 Class 0 kU/L O812-TkF Mouse Urine <0.10 Class 0 kU/L Y402-BzZ Berm[place] Grass <0.10 Class 0 kU/L L075-HeH Leo Grass 0.11 Class 0/I kU/L D842-DyK Cockroach, Qat[place] <0.10 Class 0 kU/L H629-MkC Penicillium chrysogen <0.10 Class 0 kU /L P348-CtK Cladosporium herbarum 0.18 Class 0/I kU/L G342-OaZ Aspergillus fumigatus 0.19 Class 0/I kU/L H072-UvE Alternaria alternata 1.44 Class III k U/L J847-MbB Maple/Coos 0.11 Class 0/I kU/L Y342-PoG [place], Mountain 0.19 Class 0/I kU/L K411-XlH [place], White 0.15 Class 0/I kU/L X976-LiN Elm, Barbadian <0.10 Class 0 kU/L F403-KvM [place] <0.10 Class 0 kU/L H055-RjV Maple [place] <0.10 Class 0 kU/L X369-ZuV [place] <0.10 Class 0 kU/L R650-UkA Avelino, White <0.10 Class 0 kU/L S787-JxL Pecan, [place] 0.23 Class 0/I kU/L M616-OkJ White [place] <0.10 Class 0 kU/L H836-VsY Ragweed, Short <0.10 Class 0 kU/L O869-GeE Thistle, Citizen Of [place] <0.10 Class 0 kU/L Y918-DgN Pigweed, Common <0.10 Class 0 kU/L N087-LpX Rough [place]er <0.10 Class 0 kU/L Spirometry Reviewed date:06/11/2024 11:58:30 AM Interpretation:Abnormal - FVL Performing Lab: Notes/Report: Abnormal - FVL SpiroPreBronchodilator_FVC 2.06 SpiroPostBronchodilator_FEF25_75 0 SpiroPreBronchodilator_FEF25_75 1.2 SpiroPreBronchodilator_FEV1 1.54 SpiroPrecentPredictionPost_F EF25_ 75 0 SpiroPrecentPredictionPost_FEV1 0 SpiroPrecentPredictionPost_F EV1_O VER_FVC 0 SpiroPrecentPredictionPost_FVC 0 SpiroPrecentPredictionPre_FE F25_7 5 84.5 SpiroPrecentPredictionPre_FEV1 84.2 SpiroPrecentPredictionPre_FE V1_OV ER_FVC 101.4 SpiroPrecentPredictionPre_FVC 81.7 SpiroPredicted_FEF25_75 1.42 SpiroPreBronchodilator_FEV1_ OVER_ FVC 74.88 SpiroPreBronchodilator_PEF 3.97 SpiroPostBronchodilator_FVC 0 SpiroPostBronchodilator_FEV1 0 SpiroPostBronchodilator_FEV1 _OVER _FVC 0 SpiroPostBronchodilator_PEF 0 SpiroPredicted_FVC 2.52 SpiroPredicted_FEV1 1.83 SpiroPredicted_FEV1_OVER_FVC 73.84 SpiroPredicted_PEF 5.08 Reason For Referral No Information Medications Medication SIG (Take, Route, Frequency, Duration) [...] NOSTRIL TWICE A DAY for 90 Active Metoprolol Succinate ER 25 MG 1 tablet Orally Once a day Active Nasal Washes N/A as directed intranasally Active Doxylamine Succinate (Sleep) 25 MG 1 tablet at bedtime as needed Orally Once a day Not-Taking Temazepam 15 MG 58 tab(s) Orally Onc e a day Active Azelastine HCl 137 MCG/SPRAY 2 sprays in each nostril Nasally Twice a day for 30 days Active Fluticasone Propionate 50 MCG/ACT 2 sprays in each nostril Nasally once a day for 30 days As needed Active Cetirizine HCl 10 MG 1 tablet Orally Onc e a day for 30 days Active Social History Tobacco Use: Social History Observation Description Date Details (start date - stop date) Never Smoker NA - NA Tobacco Control (Standard) Question Answer Notes Tobacco use: Nonsmoker Problems Problem Type SNOMED Code ICD Code Onset Dates Problem Status W/U Status Risk Notes Problem Hypothyroidism (07810204) Hypothyroidism, unspecified (E03.9) Active confirmed Problem Chronic allergic conjunctivitis (91733157) Other chronic allergic conjunctivitis (H10.45) Active confirmed Problem Allergic rhinitis caused by pollen (disorder) (92690436) Allergic rhinitis due to pollen (J30.1) Active confirmed Problem Allergic rhinitis caused by animal hair and dander (370400047350355) Allergic rhinitis due to animal (cat) (dog) hair and dander (J30.81) Active confirmed Problem Allergic rhinitis (50263420) Other allergic rhinitis (J30.89) Active confirmed Problem Chronic sinusitis (90485101) Chronic sinusitis, unspecified (J32.9) Active confirmed Vital Signs Respiratory Rate 17 /min 07/08/2024 Oximetry 97 % 07/08/2024 Blood pressure diastolic 77 mm Hg 07/08/2024 Height 63 in 07/08/2024 Blood pressure systolic 118 mm Hg 07/08/2024 Weight 194.4 lbs 07/08/2024 BMI 34.43 kg/m2 07/08/2024 Encounters Encounter Location Date Provider Diagnosis [facility] [address] [address] [facility]/10/[facility]24 Connie Nolasco Allergic rhinitis du e to pollen J30.1 ; Other allergic rhinitis J30.89 ; Other chronic allergic conjunctivitis H10.45 ; Cough, unspecified R05.9 ; Other diseases of vocal cords J38.3 and Chronic sinusitis, unspecified J32.9 [facility] [address] [place] [address] [facility] [address] [address] 07/08/2024 Connie Nolasco Allergic rhinitis du e to pollen J30.1 ; Other allergic rhinitis J30.89 ; Other chronic allergic conjunctivitis H10.45 ; Cough, unspecified R05.9 ; Other diseases of vocal cords J38.3 and Chronic sinusitis, unspecified J32.9 [facility] 2022 [facility] [address] [address] 10/06/2024 Edi Bean Allergic rhinitis du e to pollen J30.1 ; Allergic rhinitis due to animal (cat) (dog) hair and dander J30.81 ; Other allergic rhinitis J30.89 and Other chronic allergic conjunctivitis H10.45 [facility] [address] [place] [address] [facility] [address] [address] 10/13/2024 Edi Vikas Allergic rhinitis du e to pollen J30.1 ; Other allergic rhinitis J30.89 ; Allergic rhinitis due to animal (cat) (dog) hair and dander J30.81 and Other chronic allergic conjunctivitis H10.45 [facility] [address] [place] [address] 10/20/2024 Edi Vikas Allergic rhinitis du e to pollen J30.1 ; Other allergic rhinitis J30.89 ; Allergic rhinitis due to animal (cat) (dog) hair and dander J30.81 and Other chronic allergic conjunctivitis H10.45 [facility] [address] [place] [phone] 10/27/2024 Edi Vikas Allergic rhinitis du e to pollen J30.1 ; Other allergic rhinitis J30.89 ; Allergic rhinitis due to animal (cat) (dog) hair and dander J30.81 and Other chronic allergic conjunctivitis H10.45 [facility] [address] [place] [phone] 11/03/2024 Edisissy Bean Allergic rhinitis du e to pollen J30.1 ; Other allergic rhinitis J30.89 ; Allergic rhinitis due to animal (cat) (dog) hair and dander J30.81 and Other chronic allergic conjunctivitis H10.45 [facility] [address] [place] [phone] 11/10/2024 Edi Bean Allergic rhinitis du e to pollen J30.1 ; Other allergic rhinitis J30.89 ; Allergic rhinitis due to animal (cat) (dog) hair and dander J30.81 and Other chronic allergic conjunctivitis H10.45 [facility] [address] [place] [address] [place] [address] 11/17/2024 Edi Bean Allergic rhinitis du e to pollen J30.1 ; Other allergic rhinitis J30.89 ; Allergic rhinitis due to animal (cat) (dog) hair and dander J30.81 and Other chronic allergic conjunctivitis H10.45 [facility] [address] [place] [address] [place] [address] 11/24/2024 Edi Bean Allergic rhinitis du e to pollen J30.1 ; Other allergic rhinitis J30.89 ; Allergic rhinitis due to animal (cat) (dog) hair and dander J30.81 and Other chronic allergic conjunctivitis H10.45 [facility] [address] [place] [address] 12/01/2024 Edi Bean Allergic rhinitis du e to pollen J30.1 ; Other allergic rhinitis J30.89 ; Allergic rhinitis due to animal (cat) (dog) hair and dander J30.81 and Other chronic allergic conjunctivitis H10.45 [facility] [address] [place] [phone] 07/08/2024 Connie Nolasco [facility] [address] [place] [phone] 09/06/2024 Connie Nolasco [address] [address] 12/08/2024 Connie Nolasco Assessments Encounter Date Diagnosis (ICD Code) Assessment Notes Treatment Notes Treatment Clinical Notes Section Notes 06/10/2024 Allergic rhinitis due to pollen (ICD-10 - J30.1) Given the history and symptoms, skin testing was performed to common aeroallergens to determine atopic status. Angela clearly suffers from atopic disease based upon our skin testing and clinical history. Accordingly, we have introduced a new, aggressive medication regimen, discussed nasal washes and allergy-specific avoidance measures. We also discussed adjunctive therapies including subcutaneous, specific allergen immunotherapy as relates to the treatment and prevention of atopic disease. She is currently considering the risks, benefits and alternatives to this care. Risks: bleeding, infection, allergic reaction, anaphylaxis; Benefits: reduced need for medications, improved symptoms, disease modification. Alternatives: watch/wait, change medication regimen, improve allergy avoidance measures. - One histamine measured 01/21. Will order ImmunoCaps for further evaluation of atopic disease. Lab printed and given to patient. - Start medications as listed above. Will trial Azelastine given c/o PND causing cough. Encouraged to avoid Benadryl due to crossing of the BBB. - Patient is interested in SCIT - recommending premedication wtih Zyrtec. To discuss further at follow-up. - Patient is on BB - would need to hold until 2 hours after SCIT. Recommend discussion with cardiology prior - to discuss at follow-up. - Follow-up in 1 month for interval evaluation and management 06/10/2024 Other allergic rhinitis (ICD-10 - J30.89) Follow allergen avoidance, meds and consider SCIT as an adjunctive treatment to current regimen 07/08/2024 Allergic rhinitis due to pollen (ICD-10 - J30.1) Angela clearly suffers from atopic disease based upon our skin testing and clinical history. Accordingly, we have introduced a new, aggressive medication regimen, discussed nasal washes and allergy-specific avoidance measures. We also discussed adjunctive therapies including subcutaneous, specific allergen immunotherapy as relates to the treatment and prevention of atopic disease. She is currently considering the risks, benefits and alternatives to this care. Risks: bleeding, infection, allergic reaction, anaphylaxis; Benefits: reduced need for medications, improved symptoms, disease modification. Alternatives: watch/wait, change medication regimen, improve allergy avoidance measures. - ImmunoCaps obtained showed gE elevations to Leo grass, molds, trees, DM f with total IgE 83. - Continue medications as listed above. Encouraged to avoid Benadryl due to crossing of the BBB. - Patient is interested in SCIT - recommending premedication wtih Zyrtec. - AIE ordered and proper demonstration given. Patient was instructed that epinephrine needs to be carried to each immunotherapy visit and should be carried 2 hrs after dosing. - Patient is on BB - would need to hold until 2 hours after SCIT. Recommend discussion with cardiology prior. - Follow-up in 2-3 months for E&M 07/08/2024 Other allergic rhinitis (ICD-10 - J30.89) Follow allergen avoidance, meds and consider SCIT as an adjunctive treatment to current regimen 10/06/2024 Allergic rhinitis due to pollen (ICD-10 - J30.1) 10/13/2024 Allergic rhinitis due to pollen (ICD-10 - J30.1) 10/13/2024 Other allergic rhinitis (ICD-10 - J30.89) 10/20/2024 Allergic rhinitis due to pollen (ICD-10 - J30.1) 10/20/2024 Other allergic rhinitis (ICD-10 - J30.89) 10/27/2024 Allergic rhinitis due to pollen (ICD-10 - J30.1) 10/27/2024 Other allergic rhinitis (ICD-10 - J30.89) 11/03/2024 Allergic rhinitis due to pollen (ICD-10 - J30.1) 11/03/2024 Other allergic rhinitis (ICD-10 - J30.89) 11/10/2024 Allergic rhinitis due to pollen (ICD-10 - J30.1) 11/10/2024 Other allergic rhinitis (ICD-10 - J30.89) 11/17/2024 Allergic rhinitis due to pollen (ICD-10 - J30.1) 11/17/2024 Other allergic rhinitis (ICD-10 - J30.89) 11/24/2024 Allergic rhinitis due to pollen (ICD-10 - J30.1) 11/24/2024 Other allergic rhinitis (ICD-10 - J30.89) 12/01/2024 Allergic rhinitis due to pollen (ICD-10 - J30.1) 12/01/2024 Other allergic rhinitis (ICD-10 - J30.89) 12/01/2024 Allergic rhinitis due to animal (cat) (dog) hair and dander (ICD-10 - J30.81) 11/24/2024 Allergic rhinitis due to animal (cat) (dog) hair and dander (ICD-10 - J30.81) 11/17/2024 Allergic rhinitis due to animal (cat) (dog) hair and dander (ICD-10 - J30.81) 11/10/2024 Allergic rhinitis due to animal (cat) (dog) hair and dander (ICD-10 - J30.81) 11/03/2024 Allergic rhinitis due to animal (cat) (dog) hair and dander (ICD-10 - J30.81) 10/27/2024 Allergic rhinitis due to animal (cat) (dog) hair and dander (ICD-10 - J30.81) 10/20/2024 Allergic rhinitis due to animal (cat) (dog) hair and dander (ICD-10 - J30.81) 10/13/2024 Allergic rhinitis due to animal (cat) (dog) hair and dander (ICD-10 - J30.81) 10/06/2024 Allergic rhinitis due to animal (cat) (dog) hair and dander (ICD-10 - J30.81) 07/08/2024 Other chronic allergic conjunctivitis (ICD-10 - H10.45) Given ocular signs and symptoms I encouraged allergy avoidance measures and meds as above. If symptoms persist, consider adding additional medications including intraocular antihistamine/mast cell stabilizer, PRN and consider SCIT as an adjunctive measure 06/10/2024 Other chronic allergic conjunctivitis (ICD-10 - H10.45) Given ocular signs and symptoms I encouraged allergy avoidance measures and meds as above. If symptoms persist, consider adding additional medications including intraocular antihistamine/mast cell stabilizer, PRN and consider SCIT as an adjunctive measure 06/10/2024 Cough, unspecified (ICD-10 - R05.9) Angela reports occasional cough every hour something down the back of my thoat. She feels she coughs due to PND. Cough was worse in the Summer. She reports occasional inspiratory shortness of breath associated with cough. She reports asthma diagnosis with wheezing as a child, does not recall inhaler usage. She denies recent wheezing or chest tightnesss. Considerations for cough include post nasal drip, asthma, and GERD. - Given history and symptoms, spirometry done today and showed normal FVC, FEV1, FEV%. FVL shows variable expiratory and inspiratory flow and inspiratory blunting. Advanced lung age. - Treat atopy as stated above. Plan to trial Azelastine for PND - see above. - Treat VCD as stated above. - Consider trial of ISMAEL if no improvement with above treatment regimen. - Follow-up in 1 month for E&M 10/06/2024 Other allergic rhinitis (ICD-10 - J30.89) 10/13/2024 Other chronic allergic conjunctivitis (ICD-10 - H10.45) 07/08/2024 Cough, unspecified (ICD-10 - R05.9) Angela reports occasional cough every hour something down the back of my thoat. She feels she coughs due to PND. Cough was worse in the Summer. She reports occasional inspiratory shortness of breath associated with cough. She reports asthma diagnosis with wheezing as a child, does not recall inhaler usage. She denies recent wheezing or chest tightnesss. Considerations for cough include post nasal drip, asthma, and GERD. - Today, reports improvement in cough as PND has improved with azelastine. - Spirometry at initial visit showed normal FVC, FEV1, FEV%. FVL shows variable expiratory and inspiratory flow and inspiratory blunting. Advanced lung age. - Treat atopy as stated above. - Treat VCD as stated above. - Consider trial of ISMAEL if no improvement with above treatment regimen. 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 She was given an educational handout with exercises for VCD. Consider speech therapy. Consider rhinoscopy for conclusive diagnosis. Consider ISMAEL. - No interval episodes. 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 She was given an educational handout with exercises for VCD. Consider speech therapy. Consider rhinoscopy for conclusive diagnosis. Consider ISMAEL. 06/10/2024 Chronic sinusitis, unspecified (ICD-10 - J32.9) Angela reports one ear infection this Spring and one sinus infection this summer, treated with antibiotics. Did not require OCS. Consider PIDD workup for interval infections or need for OCS. 07/08/2024 Chronic sinusitis, unspecified (ICD-10 - J32.9) Angela reports one ear infection this Spring and one sinus infection this summer, treated with antibiotics. Did not require OCS. Consider PIDD workup for interval infections or need for OCS. 06/10/2024 Other 07/08/2024 Other Plan Of Treatment Next Appt Details Provider Name:Edi Bean , 12/15/2024 09:50:00 AM, [address], [address], [place], [address], Provider Name:Edi Bean , 12/22/2024 09:50:00 AM, [address] [address] [employer], [address], [place], [address], Insurance Providers Payer Name Payer Address Payer Phone Subscriber Number Group Number Insured Name Patient Relationship to Insured Coverage Start Date Coverage End Date [employer] (Medicare) Attention Claims [address] [place] [address] [id number] Angela Munoz Self - patient is the insured [employer] [address] [address] [place] [address] [id number] Angela Munoz Self - patient is the insured Medical (General) History Medical History History ICD Code Seasonal allergies Premature ventricular contractions Mitral valve prolapse Hypothyroidism, unspecified E03.9 Surgical History Surgery Date(Month/Year) Hernia repair 1970 Tonsillectomy knee replacement 2008 Hospitalization History Reason Date(Month/Year) pneumonia 2022
--- OUTSIDE RECORDS SUMMARY | 2024-12-08 18:29 | XMS_ITS | Continuity of Care Document ---
Author Organization [facility] Address [address] [place] [address] Phone Care Team Providers Care Automation Consultant Name Role Phone Leal OD, Amadou Unavailable Unavailable Procedures Procedure Date Eye Exam & Treatment No Script Refraction Eye Exam & Treatment Vision Svcs Frames Purchases BF Plastic Sphcyl [place] To +/-4d .12-2d Tint Plastic, Non-Sarah Tax - Medical Eye Exam, New Patient Refraction Advance Directives Directive Yes / No Effective Date File Name No Information Encounters Encounter Description Practice Location Reason(s) For Visit Diagnoses Date Provider Providers Copied on Encounter [facility], [address] [place] [address] [address], [place], [place], [id number], tel:[phone] [facility] No Information 8200 9 Leal OD Amadou. [address] , [address], [place], [place], [facility], [place]. tel:[phone] [facility], [address] [place] [address] [address], [place], [place], [id number], [place] tel:[phone] [facility] No Information Jul- 9-200 8 Leal OD Amadou. [address], [address], [place], [place], [facility], [place]. tel:[phone] [facility], [address] [place] [address] [address], [place], [place], [id number], [place] tel:[phone] [facility] No Information May-2 5-200 7 [facility] . [address] [facility], [address], [place], [place], [id number], [place]. tel:[phone] Referring Provider: Amadou Leal OD Kimberly, [address] [facility] [address], [place], [address]. tel:[phone] g Provider: Ladonna Metzger, [address] [facility], [place], [address]. tel:[phone] 0181 [facility], [address], [place], [place], [address], [place] tel:[phone] [facility] No Information 3-200 7 Leal OD Amadou. [address] [facility] , [address], [place], [address], [place]. tel:[phone] Family History Family Member Type Diagnosis Age At Onset No Information Payers Payer name Insurance type Covered alliance party ID Authoriza tion(s) [place] [id number] Social History Type Description Quantity Date Captured Comments Sex Female Smoking Status No Information Chief Complaint And Reason For Visit No Information Reason For Referral Reason For Referral No Information History Of Present Illness Encounter Date Complaint History Of Prese nt Illness No Information Functional Status Date Functional Assessmen t No Information Instructions Date Instruction Additional Infor mation No Information Assessments Type Assessment Date No Information Patient Care Teams Name Effective Dates (start - stop) Status Members No Information
--- OUTSIDE RECORDS SUMMARY | 2024-12-08 18:29 | XMS_ITS | Clinical Summary ---
Author Organization [facility] [employer] Address [address] [place] [address] Care Team Providers Care Crew Supervisor Name Role Phone Robbie Olea MD Primary Care Provider [phone] Source Comments [facility] [employer],[facility] and [facility]ician Practices is amultiple site organization consisting of ambulatory clinics and hospital sitesin [place], [place], [place] and [place]. This disclosure is being madepursuant to the Care Everywhere program and may not contain all information available regarding this patient. Last updated 18.[facility] [employer] Allergies No known active allergies Medications * Be aware that medications may not be up to date on this document. Alwaysverify current medications with the patient. levothyroxine (SYNTHROID) 125 MCG tablet Take 125 mcg by mouth daily before breakfast Active zolpidem (AMBIEN) 5 MG tablet Take 5 mg by mouth nightly as needed for Insomnia Active predniSONE (DELTASONE) 20 MG tablet Take 60 mg (3 tabs) daily x1 week, then take 40 mg (2 tabs) daily x1 week, then take 20 mg (1 tab) daily x 1 week 42 Tab 7 Active Social History Tobacco Use Types Packs/Day Years Used Date Smoking Tobacco: Never Alcohol Use Standard Drinks/Week Comments No 0 (1 standard drink = 0.6 oz pur e alcohol) Comments No Sex and Gender Information Value Date Recorded Sex Assigned at Not on file Legal Sex Female 9:54 AM CDT Gender Identity Not on file Sexual Orientation Not on file Last Filed Vital Signs Vital Sign Reading Time Taken Comments Blood Pressure 118/70 01/30/2017 2:52 PM CDT Pulse 80 01/30/2017 2:52 PM CDT Temperature 36.9 C (98.4 F) 01/30/2017 2:52 PM CDT Respiratory Rate 18 01/30/2017 2:52 PM CDT Oxygen Saturation 97% 01/30/2017 2:52 PM CDT Inhaled Oxygen Concentration - - Weight - - Height - - Body Mass Index - - Plan of Treatment Health Maintenance Due Date Last Done Comments BONE DENSITY TESTING 1945 DTAP/TDAP/TD VACCINES (1 - Tdap) 1962 PNEUMOCOCCAL VACCINE 50+ (1 of 1 - PCV) 1993 ZOSTER VACCINE (1 of 2) 1993 Respiratory Syncytial Virus (RSV) Vaccine Pt: or over 60 yrs (1 - 1-dose 75+ series) 2018 COVID-19 VACCINE ( - 2023-2 5 season) 2024 DEPRESSION SCREENING 08/18/2024 INFLUENZA VACCINE (Season Ended) 2025 HEPATITIS B VACCINE Aged Out No longe r eligible based on patient's age to complete this topic HIB VACCINE Aged Out No longer eligi ble based on patient's age to complete this topic HPV VACCINE Aged Out No longer eligi ble based on patient's age to complete this topic MENINGOCOCCAL (Group B) VACC INE SHARED DECISION-MAKING Aged Out No longer eligibl e based on patient's age to complete this topic MENINGOCOCCAL GROUPS A/C/Y/W VACCINE Aged Out No longer eligible b ased on patient's age to complete this topic Insurance COMM[employer]CIAL GENERIC MEDICARE MEDICARE Care Teams Crew Supervisor Relationship Specialty [place] [id number] [address] PCP - General 09/24/22
--- OUTSIDE RECORDS SUMMARY | 2024-12-08 18:29 | XMS_ITS | Clinical Summary ---
Author Organization [facility] Address [address] [place] [address] Care Team Providers Care Biofuels Production Manager Name Role Phone Larry Mathew DO Primary Care Provider [phone] Allergies No known active allergies Medications multivitamin [...] contraction) 03/13/20 15 Overview (11/22/2016): Symptomatic PVCs Medical History Medical History Date Comments MVP (mitral valve prolapse) PVC's (premature ventricular contractions) Hypothyroidism Aortic valve regurgitation Family History Medical History Relation Name Comments Alzheimer's disease Father Heart disease Father Arthritis Mother Relation Name Status Comments Father Mother Social History Tobacco Use Types Packs/Day Years Used Date Smoking Tobacco: Never Smokeless Tobacco: Never Tobacco Cessation:Counseling Given: Not Answered Alcohol Use Standard Drinks/Week Comments Yes 0 (1 standard drink = 0.6 oz pur e alcohol) Comments Unknown Sex and Gender Information Value Date Recorded Sex Assigned at Not on file Legal Sex Female 8:46 PM CONTINUITY CLERK Gender Identity Female 08/01/2020 10:14 AM CONTINUITY CLERK Sexual Orientation Not on file Obstetrics History Last Filed Vital Signs Vital Sign Reading Time Taken Comments Blood Pressure 124/68 07/08/2024 10:35 AM CONTINUITY CLERK Pulse 73 07/08/2024 10:35 AM CONTINUITY CLERK Temperature - - Respiratory Rate - - Oxygen Saturation 97% 07/08/2024 10:35 AM CONTINUITY CLERK Inhaled Oxygen Concentration - - Weight 87.1 kg (192 lb) 07/08/2024 10:35 AM CONTINUITY CLERK Height 162.6 cm (5' 4 ) 07/08/2024 10:35 AM CONTINUITY CLERK Body Mass Index 32.96 07/08/2024 10:35 AM CONTINUITY CLERK Plan of Treatment Health Maintenance Due Date Last Done Comments Depression Screening 1945 Fall Risk Assessment 1945 Osteoporosis Screening-Bone Density Scan 1943 Hepatitis B Screening 1961 Zoster Vaccine (1 of 2) 1993 Well Visit 65+ 2008 Pneumococcal vaccine 65+ (2 of 2 - PPSV23) 06/22/2018 06/22/2017 Influenza Vaccine (Season Ended) 2025 04/23/2019, 05/19/2018, 05/29/2017, Additional history exists DTaP/Tdap/Td Vaccine (3 - Td or Tdap) 02/05/2026 02/06/2016, 05/09/2013 Insurance MEDICARE [employer] MEDICARE [employer] [address] MEDICARE Care Teams Biofuels Production Manager Relationship Specialty Start Date End Date Larry Mathew DO [address] [facility] [address] [place] [address] PCP - General Internal Medicine 04/01/24
[2024-12-08 18:33] VITALS: BP 135/79; PULSE 77; RESP 16; TEMP 36.8; O2SAT 94
[2024-12-08 19:08] VITALS: BP 117/76; PULSE 77; RESP 14; O2SAT 94
--- OUTSIDE RECORDS SUMMARY | 2024-12-08 19:40 | XMS_ITS | Referral Summary ---
Author Organization [facility] Address [address] [place] [address] Care Team Providers Care Welding Machine Feeder Name Role Phone Larry Mathew DO Primary Care Provider [phone] Allergies No known active allergies Medications multivitamin [...] on file Legal Sex Female 8:[address]MINISTRATIVE ENGINEER Gender Identity Female 08/01/2020 10:[address]MINISTRATIVE ENGINEER Sexual Orientation Not on file Last Filed Vital Signs Vital Sign Reading Time Taken Comments Blood Pressure 124/68 07/08/2024 10:[address]MINISTRATIVE ENGINEER Pulse 73 07/08/2024 10:[address]MINISTRATIVE ENGINEER Temperature - - Respiratory Rate - - Oxygen Saturation 97% 07/08/2024 10:[address]MINISTRATIVE ENGINEER Inhaled Oxygen Concentration - - Weight 87.1 kg (192 lb) 07/08/2024 10:[address]MINISTRATIVE ENGINEER Height 162.6 cm (5' 4 ) 07/08/2024 10:[address]MINISTRATIVE ENGINEER Body Mass Index 32.96 07/08/2024 10:[address]MINISTRATIVE ENGINEER Plan of Treatment Not on file Insurance MEDICARE [employer] MEDICARE [employer] MEDICARE [employer] MEDICARE Care Teams Welding Machine Feeder Relationship Specialty Start Date End Date Larry Mathew DO [address] [facility] [address] [place], [place] [id number] PCP - General Internal Medicine 04/01/24
--- OUTSIDE RECORDS SUMMARY | 2024-12-08 19:40 | XMS_ITS | Clinical Summary ---
Author Organization [facility] Address [address] [place] [address] Care Team Providers Care Assessment Services Manager Name Role Phone Larry Mathew DO Primary Care Provider [phone] Allergies No known active allergies Medications multivitamin [...] on file Legal Sex Female 8:46 PM HEEL STAINER Gender Identity Female 08/01/2020 10:14 AM HEEL STAINER Sexual Orientation Not on file Obstetrics History Last Filed Vital Signs Vital Sign Reading Time Taken Comments Blood Pressure 124/68 07/08/2024 10:35 AM HEEL STAINER Pulse 73 07/08/2024 10:35 AM HEEL STAINER Temperature - - Respiratory Rate - - Oxygen Saturation 97% 07/08/2024 10:35 AM HEEL STAINER Inhaled Oxygen Concentration - - Weight 87.1 kg (192 lb) 07/08/2024 10:35 AM HEEL STAINER Height 162.6 cm (5' 4 ) 07/08/2024 10:35 AM HEEL STAINER Body Mass Index 32.96 07/08/2024 10:35 AM HEEL STAINER Plan of Treatment Health Maintenance Due Date [...] or Tdap) 02/05/2026 02/06/2016, 05/09/2013 [place] [address] [place] [address] MEDICARE [employer] [place] [address] MEDICARE Care Teams Assessment Services Manager Relationship Specialty Start Date End Date Larry Mathew DO [address] [facility] [address] [place] [address] PCP - General Internal Medicine 04/01/24
--- OUTSIDE RECORDS SUMMARY | 2024-12-08 19:41 | XMS_ITS | Clinical Summary ---
Author Organization [facility] [employer] Address [address] [place] [address] Care Team Providers Care Drywall Taper Helper Name Role Phone Robbie Olea MD Primary Care Provider [phone] Source Comments [facility] [employer],[facility]-owned [facility] and Associated Physician Practices is amultiple site organization consisting of ambulatory clinics and hospital sitesin [place], [place], [place] and [place]. This disclosure is being madepursuant to the Care Everywhere program and may not contain all information available regarding this patient. Last updated 18.[facility] [employer] Allergies No known active allergies Medications * [...] Insurance COMMERCIAL GENERIC MEDICARE MEDICARE Care Teams Drywall Taper Helper Relationship Specialty [place] [id number] [address] PCP - General 09/24/22
--- OUTSIDE RECORDS SUMMARY | 2024-12-08 19:41 | XMS_ITS | Continuity of Care Document ---
Author Organization [facility] Address [address] [place] [address] Phone Care Team Providers Care Window Trimmer Name Role Phone Leal OD, Amadou Unavailable Unavailable Procedures Procedure Date Eye Exam & Treatment No Script Refraction Eye Exam & Treatment Vision Svcs Frames Purchases BF Plastic Sphcyl Ralph To +/-4d .12-2d Tint Plastic, Non-Sarah Tax - Medical Eye Exam, New Patient Refraction Advance Directives Directive Yes / No Effective Date File Name No Information Encounters Encounter Description Practice Location Reason(s) For Visit Diagnoses Date Provider Providers Copied on Encounter [facility], [address] [place] [address] [address], [place], [place], [id number], tel:[phone] [facility] No Information 8200 9 Leal OD Amadou. [address] , [address], [place], [place], [facility], [place]. tel:[phone] [facility], [address] [place] [address] [address], [place], [place], [id number], [place] tel:[phone] [facility] No Information Jul- 9-200 8 Leal OD Amadou. [address], [address], [place], [place], [facility], [place]. tel:[phone] [facility], [address] [place] [address] [address], [place], [place], [id number], [place] tel:[phone] [facility] No Information May-2 5-200 7 [facility] . [address] [facility], [address], [place], [place], [id number], [place]. tel:[phone] Referring Provider: Amadou Leal OD Kimberly, [address] [facility] [address], [place], [address]. tel:[phone] g Provider: Ladonna Metzger, [address] [facility], [place], [address]. tel:[phone] [facility], [address], [place], [place], [id number], [place] tel:[phone] [facility] No Information 3-200 7 Leal OD Amadou. [address] [facility] , [address], [place], [address], [place]. tel:[phone] Family History Family Member Type Diagnosis Age At Onset No Information Payers Payer name Insurance type Covered alliance party ID Authoriza tion(s) [place] [id number] Social History Type Description Quantity Date Captured [...]
--- NOTE | 2024-12-08 19:43 | ED_ITS ---
HPI - General Adult General Chief complaint: Skin/Abscess/Foreign Body Stated complaint: rash on face Time Seen by Provider: 12/08/24 19:00 History of Present Illness HPI narrative: This is an 79-year-old female with a history of allergies to trees and pollen presenting with itchy face. Patient receives injections at the local allergy clinic due to her persistent allergic reactions. Today she was out in her garden, where there are trees and pollen, and then developed itching to the right side of her face. She did not develop swelling of her tongue or throat, wheezing or GI symptoms. Symptoms are mild. Patient went to an urgent care and was prescribed steroids and antibiotics. She has taken 1 in each and then presented to the ED because her symptoms had not improved. She was supposed to go to the allergy clinic today to get an injection but did not go. Related Data Home Medications ?Medication ?Instructions ?Recorded ?Confirmed ?Last Taken ?Type metoprolol succinate 25 mg 25 mg PO DAILY 10/01/19 10/01/24 02/12/23 08:00 History tablet,extended release 24 hr diphenhydramine HCl 25 mg capsule 25 mg PO QHS PRN Sleep 05/21/22 10/01/24 Unknown History (Benadryl) cetirizine 10 mg tablet (Zyrtec) 10 mg PO DAILY PRN 05/21/24 10/01/24 Unknown History azelastine 137 mcg (0.1 %) nasal intranasal 12/08/24 Unknown History spray Allergies Allergy/AdvReac Type Severity Reaction Status Date / Time No Known Allergies Allergy Unknown Verified 12/08/24 18:26 [facility] Past Medical History Medical History Hypertension Family history non-contributory Community acquired pneumonia Asthma childhood Adult hypothyroidism Family History Family History Mother Family history of tuberculosis Sibling Patient's brother is in good health Father Family history of congestive heart failure, Onset Age: 91 Patient's father is Other Cerebrovascular accident Diabetes mellitus Family history of malignant neoplasm of male breast Social History Social History Smoking status: Never smoker Alcohol intake: current Alcohol use details: rarely wine Substance use: former Substance use type: marijuana Other substance usage details: in the 1960s Lack of Transportation: No Lack of Food: Never True Current Housing: I Have Housing Concerned About Future Housing: No Difficulty Paying Gas/Electric Bills: No Difficulty Paying for Meds: No Currently Unemployed: No Education: Master's Degree or Higher Difficulty w/ Childcare or Family Care: No Living arrangements: with family Spiritual care concerns: No Exam Narrative: APPEARANCE: No apparent distress. Head: No swelling of the lips or tongue, speaking in normal voice EYES: EOMI, NOSE: Atraumatic NECK: Trachea midline RESPIRATORY: No increased rate of breathing clear to auscultation CARDIOVASCULAR: RRR, ABDOMINAL: Non-distended soft nontender MUSCULOSKELETAl: No obvious deformities NEURO: Alert. Moving 4/4 extremities SKIN:: Mild erythema over the right side of the face including the nasal labial fold, the right cheek and over the right eye. PSYCHIATRIC: Normal affect Course Vital Signs Vital signs: Vital Signs Temperature 98.2 F 12/08/24 18:33 Pulse Rate 77 12/08/24 18:33 Respiratory Rate 16 12/08/24 18:33 Blood Pressure 135/79 12/08/24 18:33 Pulse Oximetry 94 12/08/24 18:33 Oxygen Delivery Room Air 12/08/24 18:33 Temperature 98.2 F 12/08/24 18:33 Pulse Rate 77 12/08/24 19:08 Respiratory Rate 14 12/08/24 19:08 Blood Pressure 117/76 12/08/24 19:08 Pulse Oximetry 94 12/08/24 19:08 Oxygen Delivery Room Air 12/08/24 18:33 Medical Decision Making [facility] Narrative Medical decision making narrative: -Course: 79-year-old female with history allergies to trees and pollen presenting after being exposed to trees/pollen in her garden. She has a very mild itchy rash to her face. She has no anaphylactic symptoms such as wheezing GI symptoms or mouth/throat involvement. She is already on steroids. She has already taken Benadryl. She this goes to an allergy clinic. I do not think there is anything to add to her treatment at this point. She will be discharged to follow-up at the Allergy Clinic. -DDX includes but is not limited to: Allergic urticaria, anaphylaxis Vital Signs Vital Signs: Vital Signs Temperature 98.2 F 12/08/24 18:33 Pulse Rate 77 12/08/24 18:33 Respiratory Rate 16 12/08/24 18:33 Blood Pressure 135/79 12/08/24 18:33 Pulse Oximetry 94 12/08/24 18:33 Oxygen Delivery Room Air 12/08/24 18:33 Temperature 98.2 F 12/08/24 18:33 Pulse Rate 77 12/08/24 19:08 Respiratory Rate 14 12/08/24 19:08 Blood Pressure 117/76 12/08/24 19:08 Pulse Oximetry 94 12/08/24 19:08 Oxygen Delivery Room Air 12/08/24 18:33 Discharge Plan Discharge Clinical Impression: Allergic reaction Patient Disposition: Home Condition: Stable Instructions: Antibiotic Form, Allergies (ED) Additional Instructions: You were seen in the emergency department for a slightly itchy rash. Please take Benadryl and steroids as directed. Please follow-up with your primary care physician or allergy clinic. Return if you develop difficulty breathing, throat swelling or any new or worsening symptoms. Patient Language: Azeri Prescriptions: No Action azelastine 137 mcg (0.1 %) spray,non-aerosol INTRANASAL amoxicillin-pot clavulanate 875-125 mg tablet 1 tablet PO Q12H 7 Days Qty: 14 0RF prednisone 20 mg tablet 40 mg PO DAILY 5 Days Qty: 10 0RF cetirizine [Zyrtec] 10 mg tablet 10 mg PO DAILY PRN temazepam 15 mg capsule 15 mg PO HS PRN (Reason: sleep) Qty: 30 0RF Rx Instructions: Take at HS metoprolol succinate 25 mg tablet extended release 24 hr 25 mg PO DAILY diphenhydramine HCl [Benadryl] 25 mg capsule 25 mg PO QHS PRN (Reason: Sleep) levothyroxine 100 mcg tablet See Rx Instructions .ROUTE .COMPLEX Qty: 90 1RF Dose Instruction: 100 MCG ORALLY DAILY TAKE 1 TABLET BY MOUTH EVERY DAY Rx Instructions: 100 MCG ORALLY DAILY TAKE 1 TABLET BY MOUTH EVERY DAY Follow-up/Referrals: Larry Mathew DO [Primary Care Provider] -
[2024-12-08 20:00] VITALS: BP 139/92; PULSE 85; RESP 16; O2SAT 100
== END 2024-12-08 20:02 | disposition home or self-care (01) ==
PROVIDERS: Emergency Provider Emergency Medicine; PCP Internal Medicine
DX: T78.40XA Allergy, unspecified, initial encounter (principal); I10 Essential (primary) hypertension; E03.9 Hypothyroidism, unspecified
CPT/HCPCS: 99281

== ENCOUNTER 2025-02-22 10:51 | Outpatient (CLI) | payer MEDICARE, SELFPAY ==
--- NOTE | ~2025-02-22 | US_ITS ---
EXAMINATION: US thyroid DATE: 02/22/2025 11:29 INDICATION: Iodine deficiency related diffuse endemic goiter TECHNIQUE: Multiple ultrasound images of the thyroid were obtained. COMPARISON: 07/19/2021. Reference is also made to FNA of a nodule within the right lobe of the thyroid gland on 08/16/2021 which demonstrated a benign follicular nodule. FINDINGS: The thyroid gland extends deep into the mediastinum, to the level of the mid aortic arch, rendering c urrent evaluation somewhat limited. The right thyroid lobe measures 4.5 x 3.0 x 1.2 cm. Within the right lobe of the thyroid gland is a 24 x 17 x 25 mm nodule: Corresponding to the area of prior ultrasound-guided biopsy. Composition - spongiform Echogenicity -hyperechoic and isoechoic (1) Shape - wider than tall Margin - smooth Echogenic foci - none. = TR 1, benign Within the right lobe of the thyroid gland is a 17 x 11.4 x 11.2 mm nodule: Composition - spongiform Echogenicity -hypoechoic (2) Shape - wider than tall Margin - smooth Echogenic foci - none. = TR 2, not suspicious The left thyroid lobe measures 3.2 x 1.5 x 1.2 cm. Within the dome of the left lobe of the thyroid gland is a 9.4 x 9.1 x 10.3 mm nodule: Composition - spongiform Echogenicity -hypoechoic (2) Shape - wider than tall Margin - smooth Echogenic foci - none. = TR 2, not suspicious The isthmus measures 1.3cm in anterior to posterior dimension. There is otherwise normal echotexture and echogenicity throughout the remainder of the thyroid gland. No additional discrete nodules identified. Slightly increased vascular flow is present. IMPRESSION: TR2 nodules detected bilaterally. These nodules are not sonographically suspicious and no FNA is recommended. TR 1 nodule corresponding to the area of prior benign biopsy. While follow-up is not recommended (as per TIRADs criteria) it may be performed, at the discretion of the referring clinician. Reviewed, dictated and finalized at location A. IMPRESSION: TR2 nodules detected bilaterally. These nodules are not sonographically suspicious and no FNA is recommended. TR 1 nodule corresponding to the area of prior benign biopsy. While follow-up is not recommended (as per TIRADs criteria) it may be performed , at the discretion of the referring clinician.
== END 2025-02-22 10:52 | disposition home or self-care (01) ==
PROVIDERS: PCP Nurse Practitioner Adult Health; Visit Provider Internal Medicine
DX: E01.0 Iodine-deficiency related diffuse (endemic) goiter (principal)
CPT/HCPCS: 76536

== ENCOUNTER 2025-03-07 01:29 | Day surgery (SDC) | payer MEDICARE, SELFPAY ==
[2025-03-04 11:07] VITALS: BMI 32.6
[2025-03-07] VITALS (19 sets, daily range): BP systolic 98–144; BP diastolic 52–90; PULSE 55–73; RESP 12–19; TEMP 36.8; O2SAT 95–99; BMI 31.2
--- OUTSIDE RECORDS SUMMARY | 2025-03-07 01:31 | XMS_ITS | Patient Health Record ---
Author Organization [facility] [employer] [place] ([address]) Address [address] [facility] [address] [place] [address] Care Team Providers Care Seam Hammerer Name Role Phone Raul Sethi Primary Care Provider Connie Webb Unavailable [phone] Edi Bean Unavailable [phone] Allergies No Known Allergies Results Component Value Reference Range Notes Spirometry Reviewed date:06/11/2024 11:58:30 AM Interpretation:Abnormal - [...] 2.52 SpiroPredicted_FEV1 1.83 SpiroPredicted_FEV1_OVER_FVC 73.84 SpiroPredicted_PEF 5.08 -Respiratory Allergens w/Tot al IgE Area 8 Reviewed date:06/17/2024 07:46:00 AM Interpretation:Abnormal Performing Lab:[facility]laine, Laury [facility], [place], [place] [id number], Phone - [phone], Director - Nasim Notes/Report: Class Description Levels of Specific IgE Class Description of Class ----- < 0.10 0 Negative 0.10 - 0.31 0/I Equivocal/Low 0.32 - 0.55 I Low 0.56 - 1.40 II Moderate 1.41 - 3.90 III High 3.91 - 19.00 IV Very High 19.01 - 100.00 V Very High >100.00 Very High Immunoglobulin E, Total 83 6-495 IU/mL K998-NrF D pteronyssinus <0.10 Class 0 kU/L K347-LjI D farinae 0.11 Class 0/I kU/L P393-RjF Cat Dander <0.10 Class 0 kU/L P002-NjT Dog Dander <0.10 Class 0 kU/L X017-UiV Mouse Urine <0.10 Class 0 kU/L G611-BxP Bermuda Grass <0.10 Class 0 kU/L O692-MsK Leo Grass 0.11 Class 0/I kU/L K430-FeK Cockroach, Belizean <0.10 Class 0 kU/L G267-RlT Penicillium chrysogen <0.10 Class 0 kU /L S553-VfM Cladosporium herbarum 0.18 Class 0/I kU/L H733-SkK Aspergillus fumigatus 0.19 Class 0/I kU/L Y498-CrM Alternaria alternata 1.44 Class III k U/L Z961-OaM Maple/[place] 0.11 Class 0/I kU/L R841-KxK Rapides, Mountain 0.19 Class 0/I kU/L I326-FbX [place], White 0.15 Class 0/I kU/L T054-XuY Elm, Bangladeshi <0.10 Class 0 kU/L K643-NfX [place] <0.10 Class 0 kU/L X093-IsO Maple [place] <0.10 Class 0 kU/L Z069-ZsP [place] <0.10 Class 0 kU/L F686-OeN [place], White <0.10 Class 0 kU/L I836-GyH Pecan, [place] 0.23 Class 0/I kU/L F239-FkX White [place] <0.10 Class 0 kU/L B522-LqT Ragweed, Short <0.10 Class 0 kU/L T939-MpU Thistle, Canadian <0.10 Class 0 kU/L X037-NcU Pigweed, Common <0.10 Class 0 kU/L H379-IqQ Rough Marshelder <0.10 Class 0 kU/L Reason For Referral No Information Medications Medication SIG (Take, Route, Frequency, Duration) Notes Start Date End Date Status Nasal Washes N/A as directed intranasally Active Cetirizine HCl 10 MG 1 tablet Orally Onc e a day; Duration: 30 days Active EPINEPHrine 0.3 MG/0.3ML as directed Inj ection as needed; Duration: 30 days 07/08/2024 Active Azelastine HCl 137 MCG/SPRAY 2 sprays in each nostril Nasally Twice a day; Duration: 30 days Active Fluticasone Propionate 50 MCG/ACT 2 sprays in each nostril Nasally once a day; Duration: 30 days As needed Active Levothyroxine Sodium 100 MCG 1 tablet in the morning on an empty stomach Orally Once a day Active Doxylamine Succinate (Sleep) 25 MG 1 tablet at bedtime as needed Orally Once a day Not-Taking Azelastine HCl 137 MCG/SPRAY SPRAY 2 SPRAYS INTO EACH NOSTRIL TWICE A DAY; Duration: 90 Active Melatonin 5 MG/15ML 15 mL at bedtime as needed Orally As needed 06/10/2024 Active Temazepam 15 MG 58 tab(s) Orally Onc e a day Active Metoprolol Succinate ER 25 MG 1 tablet Orally Once a day Active Social History Tobacco Use: Social History Observation Description Date Details (start date - stop date) Never Smoker NA - NA Tobacco Control (Standard) Question Answer Notes Tobacco use: Nonsmoker Problems Problem Type SNOMED Code ICD Code Onset Dates Problem Status W/U Status Risk Notes Problem Hypothyroidism (88618075) Hypothyroidism, unspecified (E03.9) Active confirmed Problem Chronic allergic conjunctivitis (68676964) Other chronic allergic conjunctivitis (H10.45) Active confirmed Problem Allergic rhinitis caused by pollen (disorder) (44040762) Allergic rhinitis due to pollen (J30.1) Active confirmed Problem Allergic rhiniti s due to animal (cat) (dog) hair and dander (J30.81) Active confirmed Problem Allergic rhinitis (90533238) Other allergic rhinitis (J30.89) Active confirmed Problem Chronic sinusitis (40719669) Chronic sinusitis, unspecified (J32.9) Active confirmed Vital Signs Respiratory Rate 17 /min 07/08/2024 Blood pressure diastolic 77 mm Hg 07/08/2024 Oximetry 97 % 07/08/2024 Height 63 in 07/08/2024 Blood pressure systolic 118 mm Hg 07/08/2024 Weight 194.4 lbs 07/08/2024 BMI 34.43 kg/m2 07/08/2024 Encounters Encounter Location Date Provider Diagnosis [facility] [address] [facility] [employer] [address] [address] 06/10/2024 Connie Nolasco Allergic rhinitis du e to pollen J30.1 ; Other allergic rhinitis J30.89 ; Other chronic allergic conjunctivitis H10.45 ; Cough, unspecified R05.9 ; Other diseases of vocal cords J38.3 and Chronic sinusitis, unspecified J32.9 [facility] [address] [place] [address] [employer] [address] [address] 07/08/2024 Connie Nolasco Allergic rhinitis du e to pollen J30.1 ; Other allergic rhinitis J30.89 ; Other chronic allergic conjunctivitis H10.45 ; Cough, unspecified R05.9 ; Other diseases of vocal cords J38.3 and Chronic sinusitis, unspecified J32.9 [facility] [address] [place] [address] [employer] [address] [address] 10/06/2024 Edi Bean Allergic rhinitis du e to pollen J30.1 ; Allergic rhinitis due to animal (cat) (dog) hair and dander J30.81 ; Other allergic rhinitis J30.89 and Other chronic allergic conjunctivitis H10.45 [facility] [address] [place] [address] [employer] [address] [address] 10/13/2024 Edi Vikas Allergic rhinitis du e to pollen J30.1 ; Other allergic rhinitis J30.89 ; Allergic rhinitis due to animal (cat) (dog) hair and dander J30.81 and Other chronic allergic conjunctivitis H10.45 [facility] [address] [place] [address] [employer] [address] [address] 10/20/2024 Edi Vikas Allergic rhinitis du e to pollen J30.1 ; Other allergic rhinitis J30.89 ; Allergic rhinitis due to animal (cat) (dog) hair and dander J30.81 and Other chronic allergic conjunctivitis H10.45 [facility] [address] [place] [address] [employer] [address] [address] 10/27/2024 Edi Vikas Allergic rhinitis du e to pollen J30.1 ; Other allergic rhinitis J30.89 ; Allergic rhinitis due to animal (cat) (dog) hair and dander J30.81 and Other chronic allergic conjunctivitis H10.45 [facility] [address] [place] [address] [employer] [address] [place] [address] 11/03/2024 Edi Vikas Allergic rhinitis du e to pollen J30.1 ; Other allergic rhinitis J30.89 ; Allergic rhinitis due to animal (cat) (dog) hair and dander J30.81 and Other chronic allergic conjunctivitis H10.45 [facility] [address] [place] [address] [employer] [address] [address] 11/10/2024 Edi Vikas Allergic rhinitis du e to pollen J30.1 ; Other allergic rhinitis J30.89 ; Allergic rhinitis due to animal (cat) (dog) hair and dander J30.81 and Other chronic allergic conjunctivitis H10.45 [facility] [address] [place] [address] [employer] [address] [place] [phone] 11/17/2024 Edisissy Bean Allergic rhinitis du e to pollen J30.1 ; Other allergic rhinitis J30.89 ; Allergic rhinitis due to animal (cat) (dog) hair and dander J30.81 and Other chronic allergic conjunctivitis H10.45 [facility] [address] [place], [place] [address] [address] [place] [address] 11/24/2024 Edi Bean Allergic rhinitis du e to pollen J30.1 ; Other allergic rhinitis J30.89 ; Allergic rhinitis due to animal (cat) (dog) hair and dander J30.81 and Other chronic allergic conjunctivitis H10.45 [facility] [address] [place] [address] 12/01/2024 Edi Bean Allergic rhinitis du e to pollen J30.1 ; Other allergic rhinitis J30.89 ; Allergic rhinitis due to animal (cat) (dog) hair and dander J30.81 and Other chronic allergic conjunctivitis H10.45 [facility] [address] [place] [address] 12/15/2024 Edi Bean Allergic rhinitis du e to pollen J30.1 ; Other allergic rhinitis J30.89 ; Allergic rhinitis due to animal (cat) (dog) hair and dander J30.81 and Other chronic allergic conjunctivitis H10.[address] [address] 12/22/2024 Edi Bean Allergic rhinitis du e to pollen J30.1 ; Other allergic rhinitis J30.89 ; Allergic rhinitis due to animal (cat) (dog) hair and dander J30.81 and Other chronic allergic conjunctivitis H10.45 [facility] [address] [place] [address] 12/29/2024 Edi Bean Allergic rhinitis du e to pollen J30.1 ; Other allergic rhinitis J30.89 ; Allergic rhinitis due to animal (cat) (dog) hair and dander J30.81 and Other chronic allergic conjunctivitis H10.45 [facility] [address] [place] [address] 01/05/2025 Edi Bean Allergic rhinitis du e to pollen J30.1 ; Other allergic rhinitis J30.89 ; Allergic rhinitis due to animal (cat) (dog) hair and dander J30.81 and Other chronic allergic conjunctivitis H10.45 [facility] [address] [place] [address] 01/12/2025 Edi Bean Allergic rhinitis du e to pollen J30.1 ; Other allergic rhinitis J30.89 ; Allergic rhinitis due to animal (cat) (dog) hair and dander J30.81 and Other chronic allergic conjunctivitis H10.45 [facility] [address] [place] [address] 01/19/2025 Edi Bean Allergic rhinitis du e to pollen J30.1 ; Other allergic rhinitis J30.89 ; Allergic rhinitis due to animal (cat) (dog) hair and dander J30.81 and Other chronic allergic conjunctivitis H10.45 [facility] [address] [place] [address] 01/26/2025 Edi Bean Allergic rhinitis du e to pollen J30.1 ; Other allergic rhinitis J30.89 ; Allergic rhinitis due to animal (cat) (dog) hair and dander J30.81 and Other chronic allergic conjunctivitis H10.45 [facility] [address] [place] [address] 02/02/2025 Edi Bean Allergic rhinitis du e to pollen J30.1 ; Other allergic rhinitis J30.89 ; Allergic rhinitis due to animal (cat) (dog) hair and dander J30.81 and Other chronic allergic conjunctivitis H10.45 [facility] [address] [place] [address] 02/09/2025 Edi Bean Allergic rhinitis du e to pollen J30.1 ; Other allergic rhinitis J30.89 ; Allergic rhinitis due to animal (cat) (dog) hair and dander J30.81 and Other chronic allergic conjunctivitis H10.45 [facility] [address] [place] [address] 02/16/2025 Edi Bean Allergic rhinitis du e to pollen J30.1 ; Other allergic rhinitis J30.89 ; Allergic rhinitis due to animal (cat) (dog) hair and dander J30.81 and Other chronic allergic conjunctivitis H10.45 [facility] [address] [place] [address] 02/23/2025 Edi Bean Allergic rhinitis du e to pollen J30.1 ; Other allergic rhinitis J30.89 ; Allergic rhinitis due to animal (cat) (dog) hair and dander J30.81 and Other chronic allergic conjunctivitis H10.45 [facility] [address] [place] [address] 03/02/2025 Edi Bean Allergic rhinitis du e to pollen J30.1 ; Other allergic rhinitis J30.89 ; Allergic rhinitis due to animal (cat) (dog) hair and dander J30.81 and Other chronic allergic conjunctivitis H10.45 [facility] [address] [place] [phone] 07/08/2024 Connie Nolasco [address] [address] 09/06/2024 Connie Nolasco [address] [place] [address] 12/08/2024 Connie Nolasco Assessments Encounter Date Diagnosis [...] 12/01/2024 Other allergic rhinitis (ICD-10 - J30.89) 12/15/2024 Allergic rhinitis due to pollen (ICD-10 - J30.1) 12/15/2024 Other allergic rhinitis (ICD-10 - J30.89) 12/22/2024 Allergic rhinitis due to pollen (ICD-10 - J30.1) 12/22/2024 Other allergic rhinitis (ICD-10 - J30.89) 12/29/2024 Allergic rhinitis due to pollen (ICD-10 - J30.1) 12/29/2024 Other allergic rhinitis (ICD-10 - J30.89) 01/05/2025 Allergic rhinitis due to pollen (ICD-10 - J30.1) 01/05/2025 Other allergic rhinitis (ICD-10 - J30.89) 01/12/2025 Allergic rhinitis due to pollen (ICD-10 - J30.1) 01/12/2025 Other allergic rhinitis (ICD-10 - J30.89) 01/19/2025 Allergic rhinitis due to pollen (ICD-10 - J30.1) 01/19/2025 Other allergic rhinitis (ICD-10 - J30.89) 01/26/2025 Allergic rhinitis due to pollen (ICD-10 - J30.1) 01/26/2025 Other allergic rhinitis (ICD-10 - J30.89) 02/02/2025 Allergic rhinitis due to pollen (ICD-10 - J30.1) 02/02/2025 Other allergic rhinitis (ICD-10 - J30.89) 02/09/2025 Allergic rhinitis due to pollen (ICD-10 - J30.1) 02/09/2025 Other allergic rhinitis (ICD-10 - J30.89) 02/16/2025 Allergic rhinitis due to pollen (ICD-10 - J30.1) 02/16/2025 Other allergic rhinitis (ICD-10 - J30.89) 02/23/2025 Allergic rhinitis due to pollen (ICD-10 - J30.1) 02/23/2025 Other allergic rhinitis (ICD-10 - J30.89) 03/02/2025 Allergic rhinitis due to pollen (ICD-10 - J30.1) 03/02/2025 Other allergic rhinitis (ICD-10 - J30.89) 03/02/2025 Allergic rhinitis due to animal (cat) (dog) hair and dander (ICD-10 - J30.81) 02/23/2025 Allergic rhinitis due to animal (cat) (dog) hair and dander (ICD-10 - J30.81) 02/16/2025 Allergic rhinitis due to animal (cat) (dog) hair and dander (ICD-10 - J30.81) 02/09/2025 Allergic rhinitis due to animal (cat) (dog) hair and dander (ICD-10 - J30.81) 02/02/2025 Allergic rhinitis due to animal (cat) (dog) hair and dander (ICD-10 - J30.81) 01/26/2025 Allergic rhinitis due to animal (cat) (dog) hair and dander (ICD-10 - J30.81) 01/19/2025 Allergic rhinitis due to animal (cat) (dog) hair and dander (ICD-10 - J30.81) 01/12/2025 Allergic rhinitis due to animal (cat) (dog) hair and dander (ICD-10 - J30.81) 01/05/2025 Allergic rhinitis due to animal (cat) (dog) hair and dander (ICD-10 - J30.81) 12/29/2024 Allergic rhinitis due to animal (cat) (dog) hair and dander (ICD-10 - J30.81) 12/22/2024 Allergic rhinitis due to animal (cat) (dog) hair and dander (ICD-10 - J30.81) 12/15/2024 Allergic rhinitis due to animal (cat) (dog) hair and dander (ICD-10 - J30.81) 12/01/2024 Allergic rhinitis due to animal (cat) [...] Other chronic allergic conjunctivitis (ICD-10 - H10.45) 12/15/2024 Other chronic allergic conjunctivitis (ICD-10 - H10.45) 12/22/2024 Other chronic allergic conjunctivitis (ICD-10 - H10.45) 12/29/2024 Other chronic allergic conjunctivitis (ICD-10 - H10.45) 01/05/2025 Other chronic allergic conjunctivitis (ICD-10 - H10.45) 01/12/2025 Other chronic allergic conjunctivitis (ICD-10 - H10.45) 01/19/2025 Other chronic allergic conjunctivitis (ICD-10 - H10.45) 01/26/2025 Other chronic allergic conjunctivitis (ICD-10 - H10.45) 02/02/2025 Other chronic allergic conjunctivitis (ICD-10 - H10.45) 02/09/2025 Other chronic allergic conjunctivitis (ICD-10 - H10.45) 02/16/2025 Other chronic allergic conjunctivitis (ICD-10 - H10.45) 02/23/2025 Other chronic allergic conjunctivitis (ICD-10 - H10.45) 03/02/2025 Other chronic allergic conjunctivitis (ICD-10 - H10.45) [...] 06/10/2024 Other 07/08/2024 Other Plan Of Treatment No Information Insurance Providers Payer Name Payer Address Payer Phone Subscriber Number Group Number Insured Name Patient Relationship to Insured Coverage Start Date Coverage End Date [employer] [facility] (Medicare) Attention Claims [address] [place] [address] [id number] Angela Munoz Self - patient is the insured [employer] [address] [address] [place] [address] [phone] [id number] Angela Mnuoz Self - patient is the insured Medical (General) History Medical History History ICD Code Seasonal allergies Premature ventricular contractions Mitral valve prolapse Hypothyroidism, unspecified E03.9 Surgical History Surgery Date(Month/Year) Hernia repair 1970 Tonsillectomy knee replacement 2008 Hospitalization History Reason Date(Month/Year) pneumonia 2022
--- OUTSIDE RECORDS SUMMARY | 2025-03-07 01:31 | XMS_ITS | Encounter Summary ---
Author Organization [facility] Healthcare Address [address] [place] [address] Care Team Providers Care Service Counter Cashier Name Role Phone Larry Mathew DO Primary Care Provider [phone] Encounter Details Date Type Department Care Team (Late st Contact Info) Description 02/22/2025 Orders Only [facility] [address] [place] [address] Scanning, Provider Social History Tobacco Use Types Packs/Day Years Used Date Smoking Tobacco: Never Smokeless Tobacco: Never Alcohol Use Standard Drinks/Week Comments Yes 0 (1 standard drink = 0.6 oz pur e alcohol) Comments Unknown Sex and Gender Information Value Date Recorded Sex Assigned at Not on file Legal Sex Female 8:46 PM HYDRO PNEUMATIC TESTER Gender Identity Female 08/01/2020 10:14 AM HYDRO PNEUMATIC TESTER Sexual Orientation Not on file documented as of this encounter Plan of Treatment Not on file documented as of this encounter Procedures Procedure Name Priority Date/Time Associated Diagnosis Comments SCAN - RADIOLOGY/IMAGING 02/22/2025 documented in this encounter Results * SCAN - RADIOLOGY/IMAGING (02/22/2025) Anatomical Region Laterality Modality Other us Provider Scanning Final Result documented in this encounter Visit Diagnoses Not on filedocumented in this encounter Care Teams Service Counter Cashier Relationship Specialty Start Date End Date Larry Mathew DO [address] [place] [address] PCP - General Internal Medicine 04/01/24 documented as of this encounter
--- OUTSIDE RECORDS SUMMARY | 2025-03-07 01:31 | XMS_ITS | Encounter Summary ---
Author Organization [facility] Healthcare Address [address] [place] [address] Care Team Providers Care Engineer Technical Staff Name Role Phone Larry Mathew Primary Care Provider [phone] Encounter Details Date Type Department Care Team (Late st Contact Info) Description 02/08/2025 Telephone [facility] Medical Group Cardiology [address] [place] [address] Sarwat Agrawal MD [address] [place] [address] Social History Tobacco Use Types Packs/Day Years Used Date Smoking Tobacco: Never Smokeless Tobacco: Never Alcohol Use Standard Drinks/Week Comments Yes 0 (1 standard drink = 0.6 oz pur e alcohol) Comments Unknown Sex and Gender Information Value Date Recorded Sex Assigned at Not on file Legal Sex Female 8:46 PM WALL MAN Gender Identity Female 08/01/2020 10:14 AM WALL MAN Sexual Orientation Not on file documented as of this encounter Miscellaneous Notes * Telephone Encounter - Pearl Garza RN - 02/08/2025 3:28 PM CDT Faxed records as requested. * Telephone Encounter - Linda Sher - 02/08/2025 3:22 PM CDT Pt requesting last office visit note, stress test results from yesterday, and MRI Cardiac M&F WWO Contrast from 06/26/[address] Larry Mathew office (PCP). Thank you. Contact: documented in this encounter Plan of Treatment Not on file documented as of this encounter Visit Diagnoses Not on filedocumented in this encounter Care Teams Engineer Technical Staff Relationship Specialty Start Date End Date Larry Mathew DO [address] [id number] PCP - General Internal Medicine 04/01/24 documented as of this encounter
--- OUTSIDE RECORDS SUMMARY | 2025-03-07 01:31 | XMS_ITS | Encounter Summary ---
Author Organization [facility] Healthcare Address [address] [place] [address] Care Team Providers Care Wholesale Loan Processor Name Role Phone Larry Mathew DO Primary Care Provider [phone] Encounter Details Date Type Department Care Team (Late st Contact Info) Description 02/07/2025 Results Follow-Up [facility] Medical Group Cardiology [address] [place] [address] Tootie May NP [address] [facility] [address] [facility] [address] [place] [address] NM MPI SPECT (Rest and/or Stress) Multiple Studies, 24 HR Holter Monitor, Transthoracic Echo (TTE) Complete W Doppler/CF Social History Tobacco Use Types Packs/Day Years Used Date Smoking Tobacco: Never Smokeless Tobacco: Never Alcohol Use Standard Drinks/Week Comments Yes 0 (1 standard drink = 0.6 oz pur e alcohol) Comments Unknown Sex and Gender Information Value Date Recorded Sex Assigned at Not on file Legal Sex Female 8:46 PM CABIN EQUIPMENT SUPERVISOR Gender Identity Female 08/01/2020 10:14 AM CABIN EQUIPMENT SUPERVISOR Sexual Orientation Not on file documented as of this encounter Plan of Treatment Not on file documented as of this encounter Visit Diagnoses Not on filedocumented in this encounter Care Teams Wholesale Loan Processor Relationship Specialty Start Date End Date Larry Mathew DO [address] [address] PCP - General Internal Medicine 04/01/24 documented as of this encounter
--- OUTSIDE RECORDS SUMMARY | 2025-03-07 01:31 | XMS_ITS | Referral Summary ---
Author Organization [facility] Address [address] [place] [address] Care Team Providers Care Glue Spreader Name Role Phone Larry Mathew DO Primary Care Provider [phone] Encounters Date Type Department Care Team Description 02/28/2025 Telephone [facility] Medical [facility] Cardiology [address] [place] [address] [address] [place] [phone] Sarwat Agrawal MD 02/24/2025 10:15 AM CDT Ancillary Procedure [facility] Cardiology [address] [place] [address] [address] [place] [phone] Non-rheumatic mitral regurgitation 02/22/2025 Orders Only [facility] Information Management [address] [place] [address] Scanning, Provider 02/08/2025 Telephone [facility] Cardiology [address] [place] [address] [address] [place] [phone] Sarwat Agrawal MD 02/08/2025 Telephone [facility] Cardiology [address] [place] [address] [place] [phone] Tootie Garvey NP 02/07/2025 Results Follow-Up [facility] Cardiology [address] [place] [address] [address] [place] [phone] Tootie Garvey NP NM MPI SPECT (Rest and/or Stress) Multiple Studies, 24 HR Holter Monitor, Transthoracic Echo (TTE) Complete W Doppler/CF 02/07/2025 8:15 AM CDT Ancillary Procedure [facility] Cardiology [address] [place] [address] [address] [place] [address] Chest pain, unspecified type 01/27/2025 Orders Only [facility] INTERFACE [id number] Larry Mathew DO 01/27/2025 10:30 AM CDT Ancillary Procedure [facility] Cardiology [address] [place] [address] [address] [place] [phone] PVC (premature ventricular contraction) 01/27/2025 10:00 AM CDT Office Visit [facility] Cardiology [address] [place] [address] [place] [phone] Tootie Garvey NP Fatigue, unspecified type (Primary Dx); Dyspnea on exertion; Chest pain, unspecified type; Non-rheumatic mitral regurgitation; PVC (premature ventricular contraction) from Last 3 Months Allergies No known active allergies Medications multivitamin [...] 90 tablet 1 5 09/13/19 26 Active doxylamine (UNISOM) 25 mg tablet 5 Active melatonin 5 mg tablet,disinteg rating Active Hospital, Clinic, or Other Facility Administered Medication Ordered Dose Route Frequency Start Date End Date Status aminophylline 250 mg/10 mL injection 100 mgIndications:Chest pain, unspecified type 100 mg IV Once 02/07/2025 02/07/2025 Ended Active Problems Problem Noted Date Diagnosed Date [...] on file Legal Sex Female 8:46 PM [employer] Gender Identity Female 08/01/2020 10:14 AM [employer] SU[employer] Sexual Orientation Not on file Last Filed Vital Signs Vital Sign Reading Time Taken Comments Blood Pressure 104/80 01/27/2025 9:57 AM CDT Pulse 80 01/27/2025 9:57 AM CDT Temperature - - Respiratory Rate - - Oxygen Saturation 97% 01/27/2025 9:57 AM CDT Inhaled Oxygen Concentration - - Weight 89.4 kg (197 lb) 01/27/2025 9:57 AM CDT Height 162.6 cm (5' 4) 01/27/2025 9:57 AM CDT Body Mass Index 33.81 01/27/2025 9:57 AM CDT Plan of Treatment Not on file Procedures Procedure Name Priority Date/Time Associated Diagnosis Comments TRANSTHORACIC ECHO (TTE) COMPLETE W DOPPLER/CF WO CONTRAST Routine 02/24/2025 11:29 AM CDT Non-rheumatic mitral regurgitation SCAN - RADIOLOGY/IMAGING 02/22/2025 NM MPI SPECT (REST AND/OR STRESS) MULTIPLE STUDIES Schedule Routine, Read Routine (OP Routine) 02/07/2025 9:30 AM CDT Chest pain, unspecified type HEMOGLOBIN A1C Routine 01/27/2025 11:14 AM CDT TSH Routine 01/27/2025 11:14 AM CDT T4, FREE Routine 01/27/2025 11:14 AM CDT CBC WITH AUTO DIFFERENTIAL Routine 01/27/2025 11:14 AM CDT COMPREHENSIVE METABOLIC PANEL Routine 01/27/2025 11:14 AM CDT COPY RECEIVED FROM Routine 01/27/2025 11:14 AM CDT URINE CULTURE Routine 01/27/2025 11:14 AM CDT REFLEXIVE URINE CULTURE Routine 01/27/2025 11:14 AM CDT URINALYSIS AND REFLEX TO MICROSCOPIC AND CULTURE Routine 01/27/2025 11:14 AM CDT HOLTER MONITOR 24 HR Routine 01/27/2025 10:45 AM CDT PVC (premature ventricular contraction) ECG 12-LEAD Routine 01/27/2025 10:07 AM CDT Fatigue, unspecified type Chest pain, unspecified type from Last 3 Months Results * TRANSTHORACIC ECHO (TTE) COMPLETE W DOPPLER/CF WO CONTRAST (02/24/2025 11:29 AM CDT) EF Mod BP 65 % CONS SCIMAGE Anatomical Region Laterality Modality Ultrasound 02/24/2025 10:1 3 AM CDT Narrative 02/24/2025 3:12 PM CDT [facility] Medical Group Cardiology [address] [facility] [address] [id number] [address] [facility] [address] [address] P:[phone] P:[phone] Echocardiographic Report Patient Name: ED BELTRÁN L : 1945 Study Date: 02/24/2025 10:13:46 AM Gender: F [employer] Researcher: Tiki Esquivel)(CT), [facility] Location: [place] Ref Provider: TOOTIE GARVEY Height(Cm): 163 BSA: 2.01 Weight(Kg): 89.4 Heart Rate: 67 BP: 104 / 80 Quality: Good Order Provider: TOOTIE GARVEY PROCEDURES: Echocardiographic Report: Transthoracic echocardiogram with complete 2D, M-Mode, and color Doppler examination. With Strain Analysis. INDICATIONS: I34.0 Nonrheumatic mitral (valve) insufficiency. MEASUREMENTS: 2D/MM Value Range Doppler Value Range EF Mod BP 65 % [ 54 - 74 ] JOJO Vmax 1.87 cm2 [ 2.00 - 4.00 ] LV GLS -18.09 % AV Mean PG 4 mmHg LVIDd 2D 4.57 cm [ 3.80 - 5.20 ] AV Peak Alex 1.45 m/s [ 1.00 - 1.70 ] LVIDs 2D 2.86 cm [ 2.20 - 3.50 ] AV Peak PG 8 mmHg LVPWd 2D 1.22 cm [ 0.60 - 0.90 ] AV VTI 28.92 cm IVSd 2D 1.22 cm [ 0.60 - 0.90 ] LVOT Diam 2.00 cm [ 1.70 - 2.10 ] AoR Diam 2D 3.36 cm [ 2.70 - 3.70 ] LVOT Peak Alex 0.87 m/s [ 0.70 - 1.10 ] LA Volume 53.14 ml [ 22.00 - 52.00 ] LVOT VTI 17.23 cm LA Volume Index 26 cc/m2 [ 16 - 28 ] PV Peak Alex 0.87 m/s [ 0.40 - 0.80 ] RA Volume 40.73 ml TR Peak Alex 2.23 m/s [ 1.00 - 2.80 ] TR Peak PG 20 mmHg RVSP 30.00 mmHg [ 10.00 - 36.00 ] RV S` 10.42 mmHg Tapse 2.21 cm [ 1.71 - 5.00 ] 2D/MM Value Range Doppler Value Range - FINDINGS: Interpretation Site: Exam was interpreted at [facility]. Left Ventricle: Normal left ventricular systolic function. No focal wall motion abnormalities. Normal left ventricular size. Mild concentric left ventricular hypertrophy. There is pseudonormal diastolic dysfunction Grade II. Ejection fraction is measured at 65 %. Global Longitudinal Strain is -18 %. GLS is borderline. Right Ventricle: Normal right ventricular size. Normal right ventricular systolic function. Left Atrium: There is mild enlargement of left atrium. Right Atrium: The right atrium is normal in size. Atrial Septum: Normal atrial septum. Mitral Valve: Normal appearance of the mitral valve. Mild to moderate mitral valve regurgitation. The regurgitation jet is eccentrically directed which may underestimate the severity of mitral regurgitation. There is no hemodynamically significant mitral stenosis by Doppler. Aortic Valve: Mild aortic stenosis. Mean gradient of 4.0 mmHg. Valve area of 1.9 cm2. Aortic cusps appear mildly sclerotic. Trileaflet aortic valve. Mild aortic valve regurgitation. Tricuspid Valve: Normal appearance of the tricuspid valve. Estimated peak RVSP is 30 mmHg. Mild tricuspid regurgitation. Pulmonic Valve: Normal appearance of the pulmonic valve. No evidence of pulmonic regurgitation. Pericardium: Normal pericardium with no significant pericardial effusion. Aorta: Sinus of Valsalva is normal. IVC: Normal size and no respiratory collapse consistent with elevated right atrial pressure (5-10 mmHg). Pulmonary Artery: Normal pulmonary artery size. CONCLUSIONS: Normal left ventricular systolic function. No focal wall motion abnormalities. Normal left ventricular size. Mild concentric left ventricular hypertrophy. There is pseudonormal diastolic dysfunction Grade II. Ejection fraction is measured at 65 %. Global Longitudinal Strain is -18 %. GLS is borderline. There is mild enlargement of left atrium. Normal appearance of the mitral valve. Mild to moderate mitral valve regurgitation. The regurgitation jet is eccentrically directed which may underestimate the severity of mitral regurgitation. Mild aortic stenosis. Mean gradient of 4.0 mmHg. Valve area of 1.9 cm2. Aortic cusps appear mildly sclerotic. Trileaflet aortic valve. Mild aortic valve regurgitation. Estimated peak RVSP is 30 mmHg. Mild tricuspid regurgitation. Electronically Signed By: Dr. Torres Amador [facility] 02/24/2025 3:12:27 PM CDT Procedure Note Torres Amador MD - 02/24/2025 [facility] Medical Group Cardiology [address] [facility] [address] [address] [address] [facility] [address], [place] [address] P:[phone] P:[phone] Echocardiographic Report Patient Name: ED BELTRÁN L : 1945 Study Date: 02/24/2025 10:13:46 AM Gender: F [address] Researcher: Tiki Esquivel)(CT), [facility] Location: [facility] Provider: TOOTIE GARVEY Height(Cm): 163 BSA: 2.01 Weight(Kg): 89.4 Heart Rate: 67 BP: 104 / 80 Quality: Good Order Provider: TOOTIE GARVEY PROCEDURES: Echocardiographic Report: Transthoracic echocardiogram with complete 2D, M-Mode, and color Dopplerexamination. With Strain Analysis. INDICATIONS: I34.0 Nonrheumatic mitral (valve) insufficiency. MEASUREMENTS: 2D/MM Value Range Doppler ValueRange EF Mod BP 65 % [ 54 - 74 ] JOJO Vmax 1.87cm2 [ 2.00 - 4.00 ] LV GLS -18.09 % AV Mean PG 4mmHg LVIDd 2D 4.57 cm [ 3.80 - 5.20 ] AV Peak Alex 1.45m/s [ 1.00 - 1.70 ] LVIDs 2D 2.86 cm [ 2.20 - 3.50 ] AV Peak PG 8mmHg LVPWd 2D 1.22 cm [ 0.60 - 0.90 ] AV VTI 28.92cm IVSd 2D 1.22 cm [ 0.60 - 0.90 ] LVOT Diam 2.00cm [ 1.70 - 2.10 ] AoR Diam 2D 3.36 cm [ 2.70 - 3.70 ] LVOT Peak Alex 0.87m/s [ 0.70 - 1.10 ] LA Volume 53.14 ml [ 22.00 - 52.00 ] LVOT VTI 17.23cm LA Volume Index 26 cc/m2 [ 16 - 28 ] PV Peak Alex 0.87m/s [ 0.40 - 0.80 ] RA Volume 40.73 ml TR Peak Alex 2.23m/s [ 1.00 - 2.80 ] TR Peak PG 20 mmHg RVSP 30.00 mmHg [ 10.00 - 36.00 ] RV S` 10.42 mmHg Tapse 2.21 cm [ 1.71 - 5.00 ] 2D/MM Value Range Doppler ValueRange - FINDINGS: Interpretation Site: Exam was interpreted at [facility]. Left Ventricle: Normal left ventricular systolic function. No focal wall motionabnormalities. Normal left ventricular size. Mild concentric left ventricular hypertrophy. Thereis pseudonormal diastolic dysfunction Grade II. Ejection fraction is measuredat 65 %. Global Longitudinal Strain is -18 %. GLS is borderline. Right Ventricle: Normal right ventricular size. Normal right ventricular systolicfunction. Left Atrium: There is mild enlargement of left atrium. Right Atrium: The right atrium is normal in size. Atrial Septum: Normal atrial septum. Mitral Valve: Normal appearance of the mitral valve. Mild to moderate mitral valveregurgitation. The regurgitation jet is eccentrically directed which may underestimate theseverity of mitral regurgitation. There is no hemodynamically significant mitralstenosis by Doppler. Aortic Valve: Mild aortic stenosis. Mean gradient of 4.0 mmHg. Valve area of 1.9 cm2.Aortic cusps appear mildly sclerotic. Trileaflet aortic valve. Mild aortic valveregurgitation. Tricuspid Valve: Normal appearance of the tricuspid valve. Estimated peak RVSP is 30 mmHg.Mild tricuspid regurgitation. Pulmonic Valve: Normal appearance of the pulmonic valve. No evidence of pulmonicregurgitation. Pericardium: Normal pericardium with no significant pericardial effusion. Aorta: Sinus of Valsalva is normal. IVC: Normal size and no respiratory collapse consistent with elevated rightatrial pressure (5-10 mmHg). Pulmonary Artery: Normal pulmonary artery size. CONCLUSIONS: Normal left ventricular systolic function. No focal wall motionabnormalities. Normal left ventricular size. Mild concentric left ventricular hypertrophy. Thereis pseudonormal diastolic dysfunction Grade II. Ejection fraction is measuredat 65 %. Global Longitudinal Strain is -18 %. GLS is borderline. There is mild enlargement of left atrium. Normal appearance of the mitral valve. Mild to moderate mitral valveregurgitation. The regurgitation jet is eccentrically directed which may underestimate theseverity of mitral regurgitation. Mild aortic stenosis. Mean gradient of 4.0 mmHg. Valve area of 1.9 cm2.Aortic cusps appear mildly sclerotic. Trileaflet aortic valve. Mild aortic valveregurgitation. Estimated peak RVSP is 30 mmHg. Mild tricuspid regurgitation. Electronically Signed By: Dr. Torres Amador [facility] 02/24/2025 3:12:27 PM CDT Tootie Garvey NP CV ECHO PROCEDURES Final Result * SCAN - RADIOLOGY/IMAGING (02/22/2025) Anatomical Region Laterality Modality Other Provider Scanning Final Result * NM MPI SPECT (Rest and/or Stress) Multiple Studies (02/07/2025 9:30 AM CDT) Anatomical Region Laterality Modality Body N/A Nuclear Medicine 02/07/2025 8:56 AM CDT Narrative 02/07/2025 1:22 PM CDT [facility] Medical Group Cardiology [address] [facility] [address] [address] [address] [facility] [address], [place] [address] [address] [place] [address] P:[phone] P:[phone] MPI Imaging Report Patient Name: ED BELTRÁN L : 1945 Study Date: 02/07/2025 8:56:16 AM Gender: F Tech: [facility] Location: [facility] Provider: TOOTIE GARVEY Height(Cm): 162.6 BSA: Weight(Kg): 89.4 BMI: 33.81 Order Provider: TOOTIE GARVEY PHYSICIAN: Primary Care Physician: Dr. Mathew. [facility] Physician: Sarwat Agrawal M.D. Stress Supervision: Tomy Reynolds M.D. Stress Interpreting Physician: Tomy Reynolds M.D. Image Interpreting Physician: Tomy Reynolds M.D. PROCEDURES: Pharmacologic SPECT Report: Myocardial perfusion imaging with Tc99M Sestamibi SPECT at rest and stress post regadenoson (Lexiscan) infusion. INDICATIONS: Fatigue, Family Hx CAD, RODRIGUEZ, and R07.9 Chest pain, unspecified. FINDINGS: Procedural Findings: One day rest/stress was used. Tc99m Sestamibi injected IV at rest was 12.5 millicuries 37.0 millicuries of Tc99M Sestamibi injected IV during Lexiscan stress Lexiscan 0.4mg administered IV over 10 seconds. Pharmacologic stress related symptoms and/or side effects during infusion include dizziness, hypotensive 92/70 mmHg. Symptoms were resolved with 100 mg of aminophylline IVP. Baseline heart rate was 74 BPM Maximum Heart Rate Achieved was: 96 BPM Baseline blood pressure was 130/76 mmHg Post Stress Blood Pressure was 118/72 mmHg Termination: Protocol complete. Resting ECG: Normal sinus rhythm. Cannot r/o anterior infarct - age uncertain. PVC. Post ECG: No diagnostic ST changes. Arrhythmia: Frequent PVCs. Perfusion Findings: Abnormal perfusion imaging - see below. Technical quality of study is excellent. Prone imaging was performed. Left ventricle cavity size at rest is normal. Left ventricle cavity size with stress is unchanged. A TID of 0.70 was automatically calculated. defect 1: Size is large. Severity is mild to moderate in intensity. Location of defect is in the basal anterior segment, basal anterolateral segment, mid anterior segment, mid anterolateral segment, apical anterior segment and apical lateral segment. Reversibility is full. Type of defect is ischemia. LV Function: Global left ventricular function is normal. Left ventricular ejection fraction is 64 %. CONCLUSIONS: Global left ventricular function is normal. Left ventricular ejection fraction is 64 %. Size is large. Severity is mild to moderate in intensity. Location of defect is in the basal anterior segment, basal anterolateral segment, mid anterior segment, mid anterolateral segment, apical anterior segment and apical lateral segment. Reversibility is full. Type of defect is ischemia. Myocardial perfusion imaging is abnormal. Negative EKG portion of stress test. Frequent PVCs noted. Electronically Signed By: Segundo Reynolds MD 02/07/2025 12:24:07 PM CDT Electronically Signed By: Segundo Reynolds MD 02/07/2025 12:24:07 PM CDT Procedure Note Segundo Reynolds MD - 02/07/2025 [facility] Medical Group Cardiology [address], [place] [address] [address] [facility] [id number], [place] [address], [place] [address] P:[phone] P:[phone] MPI Imaging Report Patient Name: ED BELTRÁN L : 1945 Study Date: 02/07/2025 8:56:16 AM Gender: F Tech: [facility] Location: [facility] Provider: TOOTIE GARVEY Height(Cm): 162.6 BSA: Weight(Kg): 89.4 BMI: 33.81 Order Provider: TOOTIE GARVEY PHYSICIAN: Primary Care Physician: Dr. Mathew. [facility] Physician: Sarwat Agrawal M.D. Stress Supervision: Tomy Reynolds M.D. Stress Interpreting Physician: Tomy Reynolds M.D. Image Interpreting Physician: Tomy Reynolds M.D. PROCEDURES: Pharmacologic SPECT Report: Myocardial perfusion imaging with Tc99M Sestamibi SPECT at rest and stresspost regadenoson (Lexiscan) infusion. INDICATIONS: Fatigue, Family Hx CAD, RODRIGUEZ, and R07.9 Chest pain, unspecified. FINDINGS: Procedural Findings: One day rest/stress was used. Tc99m Sestamibi injected IV at rest was 12.5 millicuries 37.0 millicuries of Tc99M Sestamibi injected IV during Lexiscan stress Lexiscan 0.4mg administered IV over 10 seconds. Pharmacologic stress related symptoms and/or side effects duringinfusion include dizziness, hypotensive 92/70 mmHg. Symptoms were resolved with 100 mg of aminophylline IVP. Baseline heart rate was 74 BPM Maximum Heart Rate Achieved was: 96 BPM Baseline blood pressure was 130/76 mmHg Post Stress Blood Pressure was 118/72 mmHg Termination: Protocol complete. Resting ECG: Normal sinus rhythm. Cannot r/o anterior infarct - age uncertain. PVC. Post ECG: No diagnostic ST changes. Arrhythmia: Frequent PVCs. Perfusion Findings: Abnormal perfusion imaging - see below. Technical quality of study isexcellent. Prone imaging was performed. Left ventricle cavity size at rest is normal. Leftventricle cavity size with stress is unchanged. A TID of 0.70 was automaticallycalculated. defect 1: Size is large. Severity is mild to moderate in intensity. Location ofdefect is in the basal anterior segment, basal anterolateral segment, mid anterior segment,mid anterolateral segment, apical anterior segment and apical lateral segment.Reversibility is full. Type of defect is ischemia. LV Function: Global left ventricular function is normal. Left ventricular ejectionfraction is 64 %. CONCLUSIONS: Global left ventricular function is normal. Left ventricular ejectionfraction is 64 %. Size is large. Severity is mild to moderate in intensity. Location ofdefect is in the basal anterior segment, basal anterolateral segment, mid anterior segment,mid anterolateral segment, apical anterior segment and apical lateral segment.Reversibility is full. Type of defect is ischemia. Myocardial perfusion imaging is abnormal. Negative EKG portion of stress test. Frequent PVCs noted. Electronically Signed By: Segundo Reynolds MD 02/07/2025 12:24:07 PM CDT Electronically Signed By: Segundo Reynolds MD 02/07/2025 12:24:07 PM CDT Tootie Garvey [employer]NAG[employer] IMG NM PROCEDURES Final R esult * Copy received from (01/27/2025 11:14 AM CDT) Copy Rec'd from: [facility] Comment: [facility] [address] [place] [address] 01/27/2025 11:1 4 AM CDT 01/27/2025 11:16 AM CDT Narrative [facility] - 01/28/2025 9:13 PM CDT FASTING:NO FASTING: NO [facility] LAB BLOOD ORDERABLES Final Resul t [facility] * REFLEXIVE URINE CULTURE (01/27/2025 11:14 AM CDT) Urine culture [facility] Comment:CULTURE INDICATED - RESULTS TO FOLLOW 01/27/2025 11:1 4 AM CDT 01/27/2025 11:16 AM CDT Narrative [facility] - 01/28/2025 9:13 PM CDT FASTING:NO FASTING: NO [employer] DO LAB MICROBIOLOGY - GENERAL ORDER MATEO Final Result Performing Organization Address City/[facility]/ZIP Co de Phone Number [facility] [address] [place] [address] * (ABNORMAL) Urinalysis reflex to microscopic and culture (01/27/2025 11:14 AM CDT) Color, ur YELLOW YELLOW [facility] Appearance, ur CLEAR CLEAR [facility] Specific gravity 1.015 1.001 - 1.035 [facility] pH, ur 7.5 5.0 - 8.0 [facility] Glucose, ur NEGATIVE NEGATIVE [facility] Bilirubin, ur NEGATIVE NEGATIVE [facility] Ketones, ur NEGATIVE NEGATIVE [facility] Blood, ur NEGATIVE NEGATIVE [facility] Protein, ur, quant NEGATIVE NEGATIVE [facility] Nitrites, ur NEGATIVE NEGATIVE [facility] Leukocyte esterase, ur 1+(A) NEGATIVE [facility] WBC, ur NONE SEEN < OR = 5 /HPF [facility] RBC, ur NONE SEEN < OR = 2 /HPF [facility] Epithelial cells, squamous, ur NONE SEEN < OR = 5 /HPF [facility] Bacteria, ur, quant NONE SEEN NONE SEEN /HPF [facility] Hyaline cast NONE SEEN NONE SEEN /LPF [facility] Note [facility] Comment: This urine was analyzed for the presence of WBC, RBC, bacteria, casts, and other formed elements. Only those elements seen were reported. 01/27/2025 11:1 4 AM CDT 01/27/2025 11:16 AM CDT Narrative [facility] - 01/28/2025 9:13 PM CDT FASTING:NO FASTING: NO Larry Mathew DO LAB MICROBIOLOGY - GENERAL ORDER MATEO Final Result [facility] [address] [place] [address] * (ABNORMAL) CBC with auto differential (01/27/2025 11:14 AM CDT) WBC 6.4 3.8 - 10.8 Thousand/u L [facility] RBC, POC 4.87 3.80 - 5.10 Million/uL [facility] Hgb 15.1 11.7 - 15.5 g/dL [facility] Hct 47.0(H) 35.0 - 45.0 % [facility] MCV 96.5 80.0 - 100.0 fL [facility] MCH 31.0 27.0 - 33.0 pg [facility] MCHC 32.1 32.0 - 36.0 g/dL [facility] Comment: For adults, a slight decrease in the calculated MCHC value (in the range of 30 to 32 g/dL) is most likely not clinically significant; however, it should be interpreted with caution in correlation with other red cell parameters and the patient's clinical condition. Rdw 11.9 11.0 - 15.0 % [facility] Platelets 208 140 - 400 Thousand/u L [facility] MPV 11.3 7.5 - 12.5 fL [facility] Neutrophils, abs 3,917 1,500 - 7,800 cells/uL [facility] Lymphocytes, abs 1,466 850 - 3,900 cells/uL [facility] Monocyte abs 576 200 - 950 cells/uL [facility] Eosinophils, abs 390 15 - 500 cells/uL [facility] Basophils, abs 51 0 - 200 cells/uL [facility] Neutrophils 61.2 % [facility] Lymphocyte pct 22.9 % [facility] Monocytes 9.0 % [facility] Eosinophils 6.1 % [facility] Basophils 0.8 % [facility] 01/27/2025 11:1 4 AM CDT 01/27/2025 11:16 AM CDT Narrative [facility] - 01/28/2025 9:13 PM CDT FASTING:NO FASTING: NO [facility] LAB BLOOD ORDERABLES Final Resul t [facility] [address] [place] [address] * Urine culture (01/27/2025 11:14 AM CDT) Source URINE [facility] STATUS: FINAL [facility] Result Mixed genital waldemar isolated. These superficial [facility] Comment: bacteria are not indicative of a urinary tract infection. No further organism identification is warranted on this specimen. If clinically indicated, recollect clean-catch, mid-stream urine and transfer immediately to Urine Culture Transport Tube. 01/27/2025 11:1 4 AM CDT 01/27/2025 11:16 AM CDT Narrative [facility]ST - 01/28/2025 9:13 PM CDT FASTING:NO FASTING: NO [employer] LAB MICROBIOLOGY - GENERAL ORDER MATEO Final Result [facility] [address] [place] [address] * TSH (01/27/2025 11:14 AM CDT) [facility] TSH 1.93 0.40 - 4.50 mIU/L [facility] 01/27/2025 11:1 4 AM CDT 01/27/2025 11:16 AM CDT Narrative [facility] - 01/28/2025 9:13 PM CDT FASTING:NO FASTING: NO [employer] LAB BLOOD ORDERABLES Final Resul t Performing Organization Address [facility] Co de Phone Number [facility] [address] [place] [address] * T4, free (01/27/2025 11:14 AM CDT) [facility] Free T4 1.3 0.8 - 1.8 ng/dL [facility] 01/27/2025 11:1 4 AM CDT 01/27/2025 11:16 AM CDT Narrative [facility] - 01/28/2025 9:13 PM CDT FASTING:NO FASTING: NO Larry [employer] LAB BLOOD ORDERABLES Final Resul t Performing Organization Address [facility] de Phone Number [facility]ST [facility] [address] [place] [address] * (ABNORMAL) Hemoglobin A1c (01/27/2025 11:14 AM CDT) [facility] Hgb A1C 6.1(H) <5.7 % of total Hgb [facility] Comment: For someone without known diabetes, a hemoglobin A1c value between 5.7% and 6.4% is consistent with prediabetes and should be confirmed with a follow-up test. For someone with known diabetes, a value <7% indicates that their diabetes is well controlled. A1c targets should be individualized based on duration of diabetes, age, comorbid conditions, and other considerations. This assay result is consistent with an increased risk of diabetes. Currently, no consensus exists regarding use of hemoglobin A1c for diagnosis of diabetes for children. 01/27/2025 11:1 4 AM CDT 01/27/2025 11:16 AM CDT Narrative [facility]ST - 01/28/2025 9:13 PM CDT FASTING:NO FASTING: NO us Larry Mathew DO LAB BLOOD ORDERABLES Final Resul t [facility] [address] [place] [address] * Comprehensive metabolic panel (01/27/2025 11:14 AM CDT) Pathologist [facility] Glucose 94 65 - 99 mg/dL [facility] Comment: Fasting reference interval BUN 16 7 - 25 mg/dL [facility] Creatinine 0.95 0.60 - 0.95 mg/dL [facility] eGFR 60 > OR = 60 mL/min/1.7 3m2 [facility] BUN/creat ratio SEE NOTE: 6 - 22 (calc) [facility] Comment: Not Reported: BUN and Creatinine are within reference range. Sodium 140 135 - 146 mmol/L [facility] Potassium, pl 4.5 3.5 - 5.3 mmol/L [facility] Chloride 104 98 - 110 mmol/L [facility] CO2 27 20 - 32 mmol/L [facility] Calcium 9.4 8.6 - 10.4 mg/dL [facility] Protein, sr 6.2 6.1 - 8.1 g/dL [facility] Albumin 3.9 3.6 - 5.1 g/dL [facility] GLOBULIN 2.3 1.9 - 3.7 g/dL (calc) [facility] Alb/glob ratio 1.7 1.0 - 2.5 (calc) [facility] Bilirubin, total 0.7 0.2 - 1.2 mg/dL [facility] Alk phos 69 37 - 153 U/L [facility] AST 17 10 - 35 U/L [facility] ALT (SGPT) 15 6 - 29 U/L [facility] 01/27/2025 11:1 4 AM CDT 01/27/2025 11:16 AM CDT Narrative [facility] - 01/28/2025 9:13 PM CDT FASTING:NO FASTING: NO us Lraryaaron Mathew DO LAB BLOOD ORDERABLES Final Resul t WILLIAM [facility] [address] [facility] [place] [address] * 24 HR Holter Monitor (01/27/2025 10:45 AM CDT) Anatomical Region Laterality Modality Electrocardiogra phy Narrative 02/08/2025 5:50 PM CDT AMBULATORY TISSUE RECOVERY TECHNICIAN REPORT Patient Name: Ed Beltrán Date of : 1945 Requesting Physician: Tootie Garvey NP/Dr. Agrawal Date of interpretation: 02/08/25 Type of monitor : 24 hour Holter monitor Date of the study/Enrollment period: 01/27/2025 through 01/28/2025 Indication: Ventricular premature depolarization Quality of the study: Good Interpretation: Total of 24 hours of diagnostic time analyzed Underlying sinus rhythm with frequent ventricular ectopy. Heart rate variability between 55 and 144 beats per minute with an average heart rate of 79 beats per minute. Frequent ventricular ectopy totaling 8283 beats which was 7% ectopic burden. This consisted of 7248 isolated PVCs, 872 beats in ventricular couplet form. There were also 52 runs of nonsustained ventricular tachycardia with the fastest of which being at a rate of 144 beats per minute and the longest for 5 beats. Low-frequency supraventricular ectopy totaling 225 beats. This consisted of 188 isolated PACs, 12 atrial couplets and 3 runs of paroxysmal supraventricular tachycardia with the fastest run being at a rate of 120 beats per minute and longest run being for 6 beats. Six patient triggered events with symptoms of tiredness, rapid or fast heartbeat, lightheadedness. These generally correlated to sinus rhythm and associated ventricular ectopy including a ventricular couplet and ventricular trigeminy. Conclusions: Sinus rhythm with average heart rate of 79 beats per minute Frequent ventricular ectopy with 7% ectopic burden. This consisted of 52 short runs of nonsustained ventricular tachycardia, ventricular trigeminy, ventricular couplets and isolated PVCs Low-frequency supraventricular ectopy including 3 short runs of PSVT, atrial couplets and isolated premature atrial contractions. Symptom events correlated to sinus rhythm with 4 of 6 symptom events correlated to ventricular ectopy also Voice recognition software was used to complete this document, therefore, backside grinder variances may occur. Segundo Reynolds MD, [facility] 02/08/25 Tootie Garvey NP CV CARDIAC SERVICES [facility] Final Result * ECG 12 lead (01/27/2025 10:07 AM CDT) Tootie Garvey NP ECG ORDERABLES Final Res ult from Last 3 Months Insurance MEDICARE [email or web address] MEDICARE [email or web address] MEDICARE [email or web address] MEDICARE Care Teams Glue Spreader Relationship Specialty Start Date End Date Larry Mathew DO [address] [facility] [address] [place] [address] PCP - General Internal Medicine 04/01/24
--- OUTSIDE RECORDS SUMMARY | 2025-03-07 01:32 | XMS_ITS | Clinical Summary ---
Author Organization [facility] Address [address] [facility] [place] [address] Care Team Providers Care Senior Art Director Name Role Phone Robbie Olea MD Primary Care Provider [phone] Source Comments [facility],non-owned [facility] and Associated Physician Practices is amultiple site organization consisting of ambulatory clinics and hospital sitesin [place], [place], [place] and [place]. This disclosure is being madepursuant to the Care Everywhere program and may not contain all information available regarding this patient. Last updated 18.[facility] Allergies No known active allergies Medications * [...] season) 2024 DEPRESSION SCREENING 08/18/2024 INFLUENZA VACCINE (#1) 2025 HEPATITIS B VACCINE Aged Out No [...] Insurance COMMERCIAL GENERIC MEDICARE MEDICARE Care Teams Senior Art Director Relationship Specialty [place] [id number] [address] PCP - General 09/24/22
--- OUTSIDE RECORDS SUMMARY | 2025-03-07 01:32 | XMS_ITS | Clinical Summary ---
Author Organization [facility] Address [address] [place] [address] Care Team Providers Care Accredited Farm Manager Name Role Phone Larry Mathew DO Primary Care Provider Allergies No known active allergies Medications multivitamin [...] contraction) 03/13/20 15 Overview (11/22/2016): Symptomatic PVCs Encounters Date Type Department Care Team Description 02/28/2025 Telephone [facility] Cardiology [address] [place] [address] [place] [phone] Sarwat Agrawal MD 02/24/2025 10:15 AM CDT Ancillary Procedure [place] [address] [place] [phone] Non-rheumatic mitral regurgitation 02/22/2025 Orders Only [facility] Health Information Management [address] [place] [address] Scanning, Provider 02/08/2025 Telephone [place] [address] [place] [phone] Sarwat Agrawal MD 02/08/[address] [address] Tootie Garvey NP 02/07/2025 8:15 AM CDT Ancillary Procedure [place] [address] [place] [phone] Chest pain, unspecified type 02/07/2025 Results Follow-Up [place] [address] [place] [phone] Tootie Garvey NP NM MPI SPECT (Rest and/or Stress) Multiple Studies, 24 HR Holter Monitor, Transthoracic Echo (TTE) Complete W Doppler/CF 01/27/2025 10:30 AM CDT Ancillary Procedure [address] [address] PVC (premature ventricular contraction) 01/27/2025 10:00 AM CDT Office Visit [address] [address] Tootie Garvey NP Fatigue, unspecified type (Primary Dx); Dyspnea on exertion; Chest pain, unspecified type; Non-rheumatic mitral regurgitation; PVC (premature ventricular contraction) 01/27/2025 Orders Only [facility] INTERFACE [address] Larry Mathew DO from Last 3 Months Medical History Medical History Date Comments MVP [...] on file Legal 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[employer] Gender Identity Female 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 [employer] Sexual Orientation Not on file Obstetrics History [...] 01/27/2025 9:57 AM CDT Plan of Treatment Health Maintenance Due Date Last Done Comments Depression Screening 1945 Fall Risk Assessment 1945 Osteoporosis Screening-Bone Density Scan 1945 Hepatitis B Screening 1961 Zoster Vaccine (1 of 2) 1993 Well Visit 65+ 2008 Pneumococcal vaccine 65+ (2 of 2 - PPSV23) 06/22/2018 06/22/2017 Influenza Vaccine (#1) 2025 9, 05/19/2018, 05/29/2017, Additional history exists DTaP/Tdap/Td Vaccine (3 - Td or Tdap) 02/05/2026 02/06/2016, 05/09/2013 Procedures Procedure Name Priority Date/Time Associated Diagnosis [...] AM CDT Narrative 02/24/2025 3:12 PM CDT [facility] Cardiology [address], [place] [address] [address], [place] [address] P:[phone] P:[phone] Echocardiographic Report Patient Name: ED BELTRÁN L : 1945 Study Date: 02/24/2025 10:13:46 AM Gender: F Event Set Up Specialist: Tiki Mai (Rosa)(CT), [facility] Location: [facility] Provider: TOOTIE GARVEY Height(Cm): 163 BSA: 2.01 [...] FINDINGS: Interpretation Site: Exam was interpreted at [facility]. Left Ventricle: Normal left ventricular systolic function. [...] regurgitation. Electronically Signed By: Dr. Torres Amador [facility] 02/24/2025 3:12:27 PM CDT Procedure Note Torres Amador MD - 02/24/2025 [facility] Medical [facility] Cardiology [address] [facility] [address], [place] [address] [address] [facility] [place] [address] [place] [address] P:[phone] P:[phone] Echocardiographic Report Patient Name: ED BELTRÁN L : 1945 Study Date: 02/24/2025 10:13:46 AM Gender: F Event Set Up Specialist: Tiki Esquivel)(CT), [facility] Location: [facility] Provider: TOOTIE GARVEY Height(Cm): 163 BSA: 2.01 [...] FINDINGS: Interpretation Site: Exam was interpreted at [facility]. Left Ventricle: Normal left ventricular systolic function. [...] regurgitation. Electronically Signed By: Dr. Torres Amador [facility] 02/24/2025 3:12:27 PM CDT Tootie Garvey NP CV ECHO PROCEDURES Final Result * SCAN - RADIOLOGY/IMAGING (02/22/2025) Anatomical Region Laterality Modality Other Provider Scanning Final Result * NM MPI SPECT (Rest and/or Stress) Multiple Studies (02/07/2025 9:30 AM CDT) Anatomical Region Laterality Modality Body N/A Nuclear Medicine 02/07/2025 8:56 AM CDT Narrative 02/07/2025 1:22 PM CDT [facility] Cardiology [address], [place] [address] [address] [facility] [place] [address], [place] [address] [address], [place] [address] P:[phone] P:[phone] MPI Imaging Report Patient Name: ED BELTRÁN L : 1945 Study Date: 02/07/2025 8:56:16 AM Gender: F Tech: [facility] Location: [facility] Provider: TOOTIE GARVEY Height(Cm): 162.6 BSA: Weight(Kg): 89.4 BMI: 33.81 Order Provider: TOOTIE GARVEY PHYSICIAN: Primary Care Physician: Dr. Mathew. [facility] Physician: Sarwat Agrawal M.D. Stress Supervision: Tomy [...] Procedure Note Segundo Reynolds MD - 02/07/2025 [facility] Cardiology [address], [place] [address] [address] [facility] [place] [address], [place] [address] [address] [place] [address] P:[phone] P:[phone] MPI Imaging Report Patient Name: ED BELTRÁN L : 1945 Study Date: 02/07/2025 8:56:16 AM Gender: F Tech: ALANA CORREA Location: [facility] Provider: TOOTIE GARVEY Height(Cm): 162.6 BSA: Weight(Kg): 89.4 BMI: 33.81 Order Provider: TOOTIE GARVEY PHYSICIAN: Primary Care Physician: Dr. Mathew. [facility] Physician: Sarwat Agrawal M.D. Stress Supervision: Tomy [...] MD 02/07/2025 12:24:07 PM CDT Tootie Garvey ORTHOPAEDIC GENERAL IMG NM PROCEDURES Final R esult * Copy received from (01/27/2025 11:14 AM CDT) Copy Rec'd from: [employer] Comment: [facility] [address] [place] [phone] 01/27/2025 11:1 4 AM CDT 01/27/2025 11:16 AM CDT Narrative [facility]ST - 01/28/2025 9:13 PM CDT FASTING:NO FASTING: NO Larry Quincy DO LAB BLOOD ORDERABLES Final Resul t [facility] * REFLEXIVE URINE CULTURE (01/27/2025 11:14 AM CDT) [facility] Comment:CULTURE INDICATED - RESULTS TO FOLLOW 01/27/2025 11:1 4 AM CDT 01/27/2025 11:16 AM CDT Narrative [facility] - 01/28/2025 9:13 PM CDT FASTING:NO FASTING: NO Larry Travador DO LAB MICROBIOLOGY - GENERAL ORDER MATEO Final Result [facility] [address] [place] [address] * (ABNORMAL) Urinalysis reflex to microscopic and [...] SEEN < OR = 2 /HPF [facility] Epithelial cells, squamous, ur NONE SEEN < OR = 5 /HPF [facility] Bacteria, ur, quant NONE SEEN NONE SEEN /HPF [facility] Hyaline cast NONE SEEN NONE SEEN /LPF [facility] Note [facility] Comment: This urine was analyzed for the presence of WBC, RBC, bacteria, casts, and other formed elements. Only those elements seen were reported. 01/27/2025 11:1 4 AM CDT 01/27/2025 11:16 AM CDT Narrative [facility]ST - 01/28/2025 9:13 PM CDT FASTING:NO FASTING: NO us Larry Mathew DO LAB MICROBIOLOGY - GENERAL ORDER MATEO Final Result [facility] [address] [place] [address] * (ABNORMAL) CBC with auto differential (01/27/2025 [...] 4 AM CDT 01/27/2025 11:16 AM CDT [facility] QUEST - 01/28/2025 9:13 PM CDT FASTING:NO FASTING: NO us Lrary Mathew DO LAB BLOOD ORDERABLES Final Resul t [facility] [address] [address] [phone] * Urine culture (01/27/2025 11:14 AM CDT) Source [facility] STATUS: [facility]AL [facility] Result Mixed genital waldemar isolated. These superficial [facility] Comment: bacteria are not indicative of a [...] - GENERAL ORDER MATEO Final Result [facility] [address] [place] [address] * TSH (01/27/2025 11:14 AM CDT) Pathologist [facility] TSH 1.93 0.40 - 4.50 mIU/L [facility] 01/27/2025 11:1 4 AM CDT 01/27/2025 11:16 AM CDT Narrative [facility] - 01/28/2025 9:13 PM CDT FASTING:NO FASTING: NO Larry Mathew DO LAB BLOOD ORDERABLES Final Resul t [facility] [address] [place] [address] * T4, free (01/27/2025 11:14 AM CDT) Pathologist [facility] Free T4 1.3 0.8 - 1.8 ng/dL [facility] 01/27/2025 11:1 4 AM CDT 01/27/2025 11:16 AM CDT Narrative [facility] - 01/28/2025 9:13 PM CDT FASTING:NO FASTING: NO Larrysean Mathew [employer] LAB BLOOD ORDERABLES Final Resul t [facility] [address] [place] [phone] * (ABNORMAL) Hemoglobin A1c (01/27/2025 11:14 AM CDT) Hgb A1C 6.1(H) <5.7 % of total Hgb [facility] Comment: For someone without known diabetes, [...] 01/28/2025 9:13 PM CDT FASTING:NO FASTING: NO Larryaaron Mathew [employer] LAB BLOOD ORDERABLES Final Resul t [facility] [address] [place] [address] * Comprehensive metabolic panel (01/27/2025 11:14 AM CDT) Glucose 94 65 - 99 mg/dL [facility] [...] BLOOD ORDERABLES Final Resul t [facility] [address] [place] [address] * 24 HR Holter Monitor (01/27/2025 10:45 AM CDT) Anatomical Region Laterality Modality Electrocardiogra phy Narrative 02/08/2025 5:50 PM CDT AMBULATORY CONTINUOUS PILLOWCASE CUTTER REPORT Patient Name: Ed Beltrán Date of [...] was used to complete this document, therefore, mechanical service technician variances may occur. Segundo Reynolds MD, [facility] 02/08/25 Tootie Garvey NP CV CARDIAC SERVICES [facility] Final Result * ECG 12 lead (01/27/2025 10:07 AM CDT) Tootie Garvey NP ECG ORDERABLES Final Res ult from Last 3 Months Insurance MEDICARE [employer] MED[employer]ARE [employer] [place] [address] MEDICARE Care Teams Accredited Farm Manager Relationship Specialty Start Date End Date Larry Mathew DO [address] [facility] [address] [place] [address] PCP - General Internal Medicine 04/01/24
[2025-03-07 09:04] LABS: Hematocrit 44.7 % (37.0-47.0); Hemoglobin 14.7 g/dL (12.0-15.0); Immature Granulocyte Percent A 0.0 % (0-0.5); Lymphocytes Absolute Auto 1.24 K/mm3 (0.9-3.2); Mean Corpuscular HGB Conc 32.9 g/dl (32-36); Mean Corpuscular Hemoglobin 30.9 pg (26-34); Mean Corpuscular Volume 93.9 fl (80-100); Nucleated Red Blood Cells Absolute Auto 0.000 K/mm3 (0.0-0.012); Nucleated Red Blood Cells Perc 0.0 % (0.0-0.2); Platelet Count Result 195 k/mm3 (150-375); Red Blood Count 4.76 M/mm3 (4.2-5.4); White Blood Count 4.3 K/mm3 (4.5-10.0)
[2025-03-07 09:23] LABS: Anion Gap 6 mmol/L (4-12); Blood Urea Nitrogen 13 mg/dL (7-17); Calcium 9.0 mg/dL (8.4-10.2); Carbon Dioxide 24 mmol/L (22-30); Chloride 110 mmol/L (98-107); Estimated CRCL calculation 46 ml/min; Estimated Glomerular Filt Rate 59; Glucose 106 mg/dL (65-110); Potassium 4.0 mmol/L (3.4-5.0); Sodium 140 mmol/L (137-145)
--- NOTE | 2025-03-07 10:40 | P.SEDATION_ITS ---
Moderate Sedation Note-Pt Data Patient Data Allergies Allergy/AdvReac Type Severity Reaction Status Date / Time No Known Allergies Allergy Unknown Verified 03/07/25 08:36 Home Medications ?Medication ?Instructions ?Recorded ?Confirmed ?Type metoprolol succinate 25 mg 25 mg PO DAILY 10/01/19 03/07/25 History tablet,extended release 24 hr cetirizine 10 mg tablet (Zyrtec) 10 mg PO DAILY PRN allergy symptoms 05/21/24 03/07/25 History levothyroxine 100 mcg tablet See Rx Instructions .Route 07/30/24 03/07/25 Rx .COMPLEX #90 tabs azelastine 137 mcg (0.1 %) nasal 1 spray intranasal Q12H 12/08/24 03/04/25 History spray temazepam 15 mg capsule 15 mg PO HS PRN sleep #30 caps 01/28/25 03/04/25 Rx calcium carb 600 mg(1,500 mg)-vit 1 tablet PO DAILY 03/04/25 03/04/25 History D3 400 unit-minerals chewable tablet doxylamine succinate 25 mg tablet 25 mg PO HS PRN sleep 03/04/25 03/04/25 History (Nighttime Sleep-Aid (doxylamine)) fluticasone propionate 50 1 spray intranasal DAILY PRN 03/04/25 03/07/25 History mcg/actuation nasal allergy symptoms spray,suspension (24 Hour Allergy Relief) melatonin 5 mg capsule 5 mg PO QHS 03/04/25 03/04/25 History multivitamin (Daily Multi-Vitamin 1 tablet PO DAILY 03/04/25 03/04/25 History tablet) Sedation/Anesthesia: No previous sedation/anesthesia problems (including family history). [facility] Past Medical History Medical History Hypertension Family history non-contributory Community acquired pneumonia Asthma childhood Adult hypothyroidism Family History Family History Mother Family history of tuberculosis Sibling Patient's brother is in good health Father Family history of congestive heart failure, Onset Age: 91 Patient's father is Other Cerebrovascular accident Diabetes mellitus Family history of malignant neoplasm of male breast Social History Social History Smoking status: Never smoker Second hand tobacco smoke exposure: No Alcohol intake: current Drinks per week: 2 Alcohol use details: rarely wine Substance use: never Substance use type: does not use Other substance usage details: in the 1960s Lack of Transportation: No Lack of Food: Never True Current Housing: I Have Housing Concerned About Future Housing: No Difficulty Paying Gas/Electric Bills: No Difficulty Paying for Meds: No Currently Unemployed: No Education: Master's Degree or Higher Difficulty w/ Childcare or Family Care: No Living arrangements: with family Spiritual care concerns: No Mod Sed Physical Exam Physical Exam Pre Procedural Exam: Normal: Lungs, Heart Size, Heart Rate and Heart Rhythm Hours since solid foods: 12 Hours since liquid intake: 12 Mallampati Classification: class II Internal Medicine - PN: Obj Da Vital Signs Vital Signs: Vital Signs - 24 hr 03/07/25 08:37 Temperature 36.8 C Pulse Rate 73 Respiratory Rate 14 Blood Pressure 132/76 Pulse Oximetry 96 Oxygen Delivery Room Air Labs 03/07/25 08:54 03/07/25 08:54 Labs: Laboratory Results - last 24 hr 03/07/25 08:54 WBC 4.3 L RBC 4.76 Hgb 14.7 Hct 44.7 MCV 93.9 MCH 30.9 MCHC 32.9 RDW 12.7 Plt Count 195 MPV 10.8 H Immature Gran % (Auto) 0.0 Neut % (Auto) 54.4 Lymph % (Auto) 28.6 [place] % (Auto) 10.6 H Eos % (Auto) 4.8 H Baso % (Auto) 1.6 H Lymph # (Auto) 1.24 [place] # (Auto) 0.5 Eos # (Auto) 0.2 Baso # (Auto) 0.1 Abs Immat Gran (auto) 0.00 Absolute Neuts (auto) 2.4 Absolute Nucleated RBC 0.000 Nucleated RBC % 0.0 Sodium 140 Potassium 4.0 Chloride 110 H Carbon Dioxide 24 Anion Gap 6 BUN 13 Creatinine 0.91 Estim Creat Clear Calc 46 Estimated GFR 59 Glucose 106 Calcium 9.0 ASA Classification/Sedation ASA Classification/Sedation ASA Class: III Emergent: No Risks: Risks, benefits and alternatives explained and patient/family accepted plan for sedation. Patient re-evaluated immediately prior to sedation.
--- NOTE | 2025-03-07 10:40 | WPDHPUPDATE1 ---
History and Physical Update Update Date/Time: 03/07/25 10:40 History and Physical has been reviewed, including an updated exam of the patient. There are NO changes in the patient's condition. Risks, benefits, and alternatives have been discussed and questions answered. Patient agrees to proceed with procedure.
--- NOTE | 2025-03-07 11:15 | P.PCNCC_ITS ---
Cardiac Cath Procedure Note Date of procedure:: 03/07/25 Performing physician:: CATHETERIZATION LABORATORY REPORT Procedure Date: 03/07/2025 Referring Physician: Tootie May NP Anesthesia: Versed and Fentanyl were ordered and given in my presence at 1059, procedure ended at 1112. Supervision of nurse, Rowdy Eagn, RN monitored moderate sedation with 2mg Versed and 50mcg Fentanyl was provided for 13 minutes. Pre-op Diagnosis: Abnormal nuclear stress test Post-op Diagnosis: Abnormal nuclear stress test Procedure(s): Left heart catheterization with coronary angiography Access Site: Right radial artery Brief History and Clinical Indications: 79-year-old woman who was complaining exertional shortness of breath and chest discomfort found to have abnormal nuclear stress test for which cardiac catheterization with possible PCI has been recommended. All risks, benefits and alternatives to left heart catheterization with or without percutaneous coronary intervention was discussed at length with the patient. Risk of complications including but not limited to bleeding, infection, arrhythmia, stroke, worsening kidney function, blood loss, groin hematoma, limb loss, emergency coronary artery bypass grafting, and even were discussed with the patient and all questions were answered. The patient understood and wished to proceed. Time out called, patient name, date of , medical record number, allergies, procedure performed, identify [employer], patient and staff member concurred with accurate data, procedure carried on. Findings: LEFT HEART CATHETERIZATION FINDINGS: 1. Left main: The left main coronary artery is free of angiographic stenosis.. 2. Left anterior descending: The LAD and the diagonal branches have mild luminal irregularities without any significant obstructive angiographic disease. 3. Left circumflex: The left circumflex artery and the main marginal branches are free of angiographic stenosis. 4. Right coronary artery: The is a large dominant vessel. The proximal RCA has a focal 20% stenosis. The remainder of the vessel and its branches have mild luminal irregularities. 5. Ramus Intermedius: The ramus branches free of angiographic stenosis. 6. Left ventricle: A. End-diastolic pressure 20 mmHg. B. LV gram deferred. C. No significant gradient across aortic valve on catheter pullback. 6. Opening AO pressure 90/62 and closing AO pressure 83/58 Description of Procedure: Informed consent signed and placed in the chart. Patient transferred to car barn laborer room. Prepped and draped in usual sterile fashion. 2% lidocaine injected subcutaneously in right wrist area. 22-gauge venipuncture catheter used to access the right radial artery with the Seldinger technique. 6-FR slender sheath placed in right radial artery. Nitroglycerin 200mcg, Verapamil 2.5mg, and Heparin 5000U was given intraarterial through the sheath. J wire advanced under fluoroscopy 5F TIG diagnostic catheter engaged Left Main Coronary Artery. 5F JR4 diagnostic catheter engaged Right Coronary Artery Multiple orthogonal angiogram obtained and reviewed 5F JR4 diagnostic catheter crossed aortic valve to obtain LVEDP, LV angiogram deferred. Hemostasis was achieved by application of TR band. Assessment: Minimal CAD. Post Operative Condition: Stable No significant blood loss Disposition: Home Plan: The patient will be monitored in the recovery area. Continue aggressive medical therapy and risk factor modification. Sarwat Agrawal Interventional Cardiology
[2025-03-07] MEDS: SODIUM CHLORIDE 0.9% IV 1,000 ML 125 ML IV CONT (11:47)
== END 2025-03-07 15:30 | disposition home or self-care (01) ==
PROVIDERS: PCP Internal Medicine; Visit Provider Internal Medicine
PROC: 4A023N7 Measurement of Cardiac Sampling and Pressure, Left Heart, Percutaneous Approach (ICD-10-PCS; CPT 93452; principal; 2025-03-07 10:00)
DX: I25.10 Atherosclerotic heart disease of native coronary artery without angina pectoris (principal); R94.39 Abnormal result of other cardiovascular function study
CPT/HCPCS: 36415; 80048; 85025; 93458; C1769; C1887; C1894; J1644; J2003; J2250; J2305; J3010; J7030; J7040